=== PATIENT | male | born 1940 | race Caucasian/White ===

== ENCOUNTER 2019-04-18 10:45 | Outpatient (CLI) | payer MEDICARE, OTHER, SELFPAY ==
--- NOTE | 2019-04-18 10:52 | ECG_ITS ---
Measurements Intervals [place] Rate: 69 P: 39 OR: 164 QRS: -22 QRSD: 102 T: 11 QT: 375 QTc: 402 Interpretive Statements SINUS RHYTHM VOLTAGE CRITERIA FOR LVH BORDERLINE T WAVE ABNORMALITY- INFERIOR LEADS BASELINE ARTIFACT- I, II, III, AVL, AVF, V6 BORDERLINE ECG Electronically Signed On 04-18-2019 11:32:24 TANDEM OPERATOR by Joe Beaulieu D.O.
[2019-04-18 11:26] LABS: Blood Urea Nitrogen 29 mg/dL (9-20); Calcium 9.7 mg/dL (8.4-10.2); Carbon Dioxide 28 mmol/L (22-30); Chloride 99 mmol/L (98-107); Estimated Glomerular Filt Rate 45; Glucose 97 mg/dL (75-110); Potassium 3.7 mmol/L (3.4-5.0); Sodium 137 mmol/L (137-145)
== END 2019-04-18 10:46 | disposition home or self-care (01) ==
LOC: ANHSURGERY 10:52
PROVIDERS: Anesthesiology; PCP Family Medicine; Visit Provider Surgery
DX: I10 Essential (primary) hypertension (principal); R94.31 Abnormal electrocardiogram [ECG] [EKG]
CPT/HCPCS: 36415; 80048; 93005

== ENCOUNTER 2019-04-27 01:27 | Day surgery (SDC) | payer MEDICARE, OTHER, SELFPAY ==
[2019-04-17 10:15] VITALS: BMI 24.4
--- NOTE | 2019-04-26 20:50 | PM.SD ---
Same Day Admit/Disch: HPI History of Present Illness Chief complaint: Right Inguinal Hernia Narrative: Matteo Holman is a 78 year old male with a painful right inguinal hernia. He is taken to surgery now for repair. [facility] Past Medical History Medical History BPH (benign prostatic hyperplasia) Hypertension Hypothyroidism Surgical History Surgical History History of appendectomy History of cholecystectomy History of tonsillectomy Hx of arthroscopy of left knee Hx of arthroscopy of right knee S/P skin cancer resection Family History Family History Unknown No problems noted. Social History Social History Smoking status: Former smoker Second hand tobacco smoke exposure: No Smoking end date: 03/08/04 Alcohol intake: never Same Day Admit/Disch: Med Pre-admit Medications Home Medications Medication Instructions Recorded Confirmed Type triamterene 37.5 1 tablet PO QAM #90 tablet 02/22/19 04/27/19 Rx mg-hydrochlorothiazide 25 mg tablet levothyroxine 112 mcg tablet 112 mcg PO DAILY 03/17/19 04/27/19 History hydrocodone-acetaminophen 1 - 2 tablet PO Q6H PRN #7 tablet 04/27/19 Rx ibuprofen 600 mg PO Q6H PRN #14 tablet 04/27/19 Rx Exam Const: General: comfortable, no acute distress, alert and awake HENMT: Head: normocephalic and atraumatic Mouth: Yes Normal oral and palatal mucosa present Eyes: Conjunctivae: conjunctivae normal Pupils: Equal, round and reactive pupils present EOM: EOMs intact bilaterally Neck: Neck: normal visual inspection, no lymphadenopathy and nontender Resp: Effort & Inspection: normal respiratory effort Auscultation: clear to auscultation bilaterally Cardio: Rate: regular rate Rhythm: regular rhythm Heart sounds: no gallops, no murmurs and no rubs GI: Inspection: non-distended GI Palp: Yes Soft to palpation, No Tenderness to palpation present (GI), No Hepatomegaly present and No Splenomegaly present : Male General Exam: Yes hernia (right inguinal bulge, pulses with cough) Penis: Yes normal penis Scrotum: scrotum normal Testes: Testes normal Skin: Lesions: no lesions Rashes: no rashes Neuro: General: no focal motor deficits and CN's II-XI intact bilaterally Cranial nerves: Yes Equal, round and reactive pupils present, Yes Bilaterally intact EOM present, Yes facial symmetry and Yes Midline tongue present Speech: normal speech Motor exam (neuro): 5/5 motor strength present throughout and Motor abnormalities not present Extrem: General: no clubbing, cyanosis or edema and edema Psych: Affect: normal affect Thought process: Normal thought process present Insight: Good insight present (Psych) DS: Summary Time Spent with Patient Time attestation: Total time spent providing and/or coordinating discharge services: DS: Diagnosis Admitting Diagnosis Admitting Diagnosis: Essential (primary) hypertension Discharge Diagnosis (1) Reducible right inguinal hernia: Code(s): K40.90 - Unilateral inguinal hernia, without obstruction or gangrene, not specified as recurrent Status: Acute Assessment and Plan: Patient has a right inguinal hernia noted on exam. I have recommended repair right inguinal hernia repair as outpatient under loc/mac. I have recommend repair inguinal hernia under loc/mac anesthesia as outpatient. The procedure was discussed in detail including the use of mesh, general description, and usual course of recovery. Risk of recurrence, infection, postop bleeding, prolonged postop pain, possible need to return to surgery and possible placement of catheter due to post op urinary retention were discussed a well. All questions answered. Patient agrees to go ahead with surgery. Discharge Plan Discharge Patient Disposition: [facility]
[2019-04-27 09:32] VITALS: BP 159/83; PULSE 75; RESP 15; TEMP 36.7; O2SAT 96
[2019-04-27] MEDS: LACTATED RINGERS 1,000 ML 30 ML IV CONT (10:05)
--- NOTE | 2019-04-27 10:46 | WPDHPUPDATE1 ---
History and Physical Update Update Date/Time: 04/27/19 10:46 History and Physical has been reviewed, including an updated exam of the patient. There are NO changes in the patient's condition. Risks, benefits, and alternatives have been discussed and questions answered. Patient agrees to proceed with procedure.
--- NOTE | 2019-04-27 11:06 | WPDANESEPPF ---
Anes - Initial Pre Proc Eval Procedure: Operation Date: 04/27/19 12:00 Proposed Procedures p Right Inguinal Hernia Repair - Pepito Alvarez MD Date/Time: 04/27/19 11:06 Surgeon: Pepito Alvarez MD Pre Op Diagnosis: Right Inguinal Hernia Patient Data Age: 78 Gender: M Height: 6 ft Weight: 81.65 kg Allergies Allergy/AdvReac Type Severity Reaction Status Date / Time No Known Allergies Allergy Unknown Verified 04/17/19 10:01 Home Medications Medication Instructions Recorded Confirmed Type triamterene 37.5 1 tablet PO QAM #90 tablet 02/22/19 04/17/19 Rx mg-hydrochlorothiazide 25 mg tablet levothyroxine 112 mcg tablet 112 mcg PO DAILY 03/17/19 04/17/19 History Patient hx anesthesia problems: none Family hx anesthesia problems: none PMFSH Past Medical History Medical History BPH (benign prostatic hyperplasia) Hypertension Hypothyroidism Surgical History Surgical History History of appendectomy History of cholecystectomy History of tonsillectomy Hx of arthroscopy of left knee Hx of arthroscopy of right knee S/P skin cancer resection Family History Family History Unknown No problems noted. Social History Social History Smoking status: Former smoker Second hand tobacco smoke exposure: No Smoking end date: 03/08/04 Alcohol intake: never Anes - Eval Final PreProcedure Day of Procedure 04/27/19 11:06 Patient weight: normal Heart: regular rate and rhythm Lungs: clear to auscultation Airway: Mallampati scale class II Neurological: alert and oriented Last oral intake: >/= 8 hours ASA classification: III Emergent: no Anesthetic plan: proceed Anesthesia type and monitoring: general GIVS and standard monitoring Informed Consent: The patient's anesthetic plan and its attendant risks and benefits were discussed with the patient/family/POA. Questions were solicited and answers provided to the satisfaction of the patient/family/POA.
[2019-04-27] MEDS: ceFAZolin 2 GM/D5W 50 ML 2 GM/50 ML BAG IVPB (12:12)
[2019-04-27] MEDS: IBUPROFEN IV 800 MG/200 ML 800 MG/200 ML BAG 400 MG IVPB (12:41)
--- NOTE | 2019-04-27 12:59 | SUR.OPER ---
PARIETEX PLUG AND PATCH SYSTEM 6CM LOT#[id number] EXP. 2023-11-06
--- NOTE | 2019-04-27 13:30 | PM.PROC ---
Procedure Note - Detailed Date of procedure: 04/27/19 Pre-op diagnosis: Right Inguinal Hernia Right inguinal hernia Post-op diagnosis: same (Indirect hernia) Procedure performed: Repair of right inguinal hernia with 6 cm Parietex hernia mesh system Description of procedure: The patient was taken to surgery and IV sedation was administered. The right groin and genitalia were prepped and draped. Proposed incision was marked on the skin. Local was infiltrated into the skin and the deeper subcutaneous tissues. Incision was made and deepened through the subcutaneous. Crossing veins were cauterized and divided. Dissection was carried through Willie's fascia down to the external oblique aponeurosis. The aponeurosis was exposed as was the external ring. Additional local anesthesia was infiltrated deep to the aponeurosis in the area of the spermatic cord and inguinal canal contents. The aponeurosis was opened laterally and extended medially through the external ring. The leaves of the aponeurosis were dissected free from the spermatic cord. The ileoinguinal nerve was carefully preserved throughout the dissection and was left attached to the spermatic cord. The cord was then mobilized medially on a [place] drain. The cord was dissected back to the internal ring. Dissection was then carried out in the anteromedial spermatic cord. The hernia sac was found and dissected free. The sac was opened so that I could place a finger within the hernia sac and facilitate this dissection. This opening was then closed with a running 3 0 Vicryl suture. The sac was then dissected back to a high dissection. It was dunked into the retroperitoneum. A 6 centimeter Parietex knik was chosen. It was folded to form a plug. It was placed in the defect. The edges were sutured to the transversalis fascia with interrupted 3 0 Vicryl suture. The hernia defect was then partially closed with some additional 3 0 Vicryl suture. Patch was then cut to the appropriate size and placed over the inguinal canal floor. The lateral leaves were passed beyond the cord. The cord and ileoinguinal nerve were then laid over the patch. The external oblique aponeurosis was closed with interrupted 3 0 Vicryl suture. Willie's fascia was closed with interrupted 3 0 Vicryl suture. The subcutaneous was closed with interrupted 4 0 Vicryl suture. Four 0 Vicryl subcuticular skin sutures were placed. The skin was closed finally with a running 4 0 Monocryl skin suture. The wound was dressed with Exofin surgical adhesive. The patient was awakened and taken to recovery in good condition. Sponge and needle counts were correct x2. Anesthesia: MAC and local (0.5% Marcaine with Exparel) Surgeon: Pepito Alvarez MD Retort Pre Cooker: Caitlin ARZATE Estimated blood loss (mL): 5 Drains: No Packing: No Pathology: none sent Complications: None Condition: stable Disposition: same day Findings: Indirect inguinal hernia. No sliding hernia was noted.
[2019-04-27 13:39] VITALS: BP 100/55; PULSE 50; RESP 16; O2SAT 97
[2019-04-27 14:05] VITALS: BP 162/79; PULSE 58
[2019-04-27 14:35] VITALS: BP 164/72; PULSE 55
== END 2019-04-27 14:55 | disposition home or self-care (01) ==
PROVIDERS: PCP Family Medicine; Visit Provider Surgery
PROC: (CPT 49505; principal; 2019-04-27 12:00)
DX: K40.90 Unilateral inguinal hernia, without obstruction or gangrene, not specified as recurrent (principal); I10 Essential (primary) hypertension; E03.9 Hypothyroidism, unspecified; N40.0 Benign prostatic hyperplasia without lower urinary tract symptoms; Z87.891 Personal history of nicotine dependence
CPT/HCPCS: 49505; A9270; C1781; C9290; J0690; J1741; J2250; J2405; J2704; J3010; J7120

== ENCOUNTER 2019-05-07 10:37 | Emergency (ER) | payer MEDICARE, OTHER, SELFPAY ==
--- NOTE | ~2019-05-07 | US_ITS ---
EXAMINATION: US scrotum doppler DATE: 05/07/2019 13:41 INDICATION: Right testicular pain. TECHNIQUE: Grayscale and Doppler ultrasound images of the testes were obtained. COMPARISON: None. FINDINGS: The right testis measures 3.3 x 2.8 x 1.9 cm. The left testis measures 3.3 x 3.1 x 1.7 cm. There is normal vascular flow to both testes. The right epididymis is normal in size and demonstrates hyperemia. The left epididymis is normal with normal vascular flow. There is no varicocele or hydroc luis manuel. IMPRESSION: 1. Hyperemia of right epididymis, consistent with epididymitis. Reviewed, dictated and finalized at location A. ETING MANAGER
[2019-05-07 11:25] VITALS: BP 125/77; PULSE 86; O2SAT 97
--- NOTE | 2019-05-07 12:30 | ED.GENADULT ---
HPI - General Adult General Chief complaint: Recheck/Abnormal Lab/Rx Stated complaint: post op check Time Seen by Provider: 05/07/19 11:54 Source: patient Mode of arrival: ambulatory Limitations: no limitations History of Present Illness HPI narrative: A 78 y/o male pt presents to the ED, with c/o redness, bloody drainage, and concern of infection to his incision site from an inguinal hernia repair he had on 04/27/2019. He notes that he has a follow up on (05/11/2019) with Dr. Alvarez, but he did not feel like he could wait that long. Pt states that following the procedure he noticed his underwear was full of blood, but when he applied a band aid, the bleeding subsided. He denies any increase in swelling to his incision site. Pt notes a sharp, burning sensation and pain to his rt testicle when he moves his rt leg a certain way. He states that he first noticed swelling in his rt testical following his procedure, but notes that the swelling has gone down. Pt denies fever, chills, sweats, penile discharge or dysuria. He notes having a hx of an enlarged prostate. complaint: post op follow up for iguinal hernia repair Onset (ago): day(s) (10) Location: pelvis (groin) Quality: burning (rt testical) and sharp (rt testical) Pain Consistency: other ( when moving rt leg a certain way ) Relieving factors: other (band aid to incision site to stop bloody drainage) Associated symptoms: other (redness, bloody drainage to incision site, rt testicular pain and swelling) Related Data Home Medications Medication Instructions Recorded Confirmed levothyroxine 112 mcg tablet 112 mcg PO DAILY 03/17/19 04/27/19 Allergies Allergy/AdvReac Type Severity Reaction Status Date / Time No Known Allergies Allergy Unknown Verified 04/27/19 11:22 Review of Systems Review of Systems: All systems reviewed & are unremarkable except as noted in HPI and below Constitutional: Constitutional: Denies chills, Denies excessive sweating and Denies fever(s) Genitourinary: Genitourinary: Denies dysuria, Denies penile discharge, Reports scrotal swelling (subsided) and Reports testicular pain (sharp, burning pain in rt testicle, with rt leg movement) Integumentary/Breasts: Skin/Breast: Denies swelling (to incision site), Reports erythema (to incision site) and Reports other (bleeding to incision site) [facility] Past Medical History Medical History BPH (benign prostatic hyperplasia) Hypertension Hypothyroidism Surgical History Surgical History History of appendectomy History of cholecystectomy History of tonsillectomy Hx of arthroscopy of left knee Hx of arthroscopy of right knee S/P skin cancer resection Social History Social History Smoking status: Former smoker Second hand tobacco smoke exposure: No Smoking end date: 03/08/04 Alcohol intake: never Gender identity (if verbalized by the patient): Male Exam Narrative: Exam Narrative: GENERAL: Well-appearing, well-nourished, and in no acute distress. HEAD: Normocephalic, atraumatic. ENT: Mucous membranes moist. ABDOMEN: Soft, nontender, nondistended. Well-healing right inguinal hernia incision with underlying edema and induration. No ballotable/fluctuant mass beneath the incision. No active drainage could be expressed. :. Normal-appearing external genitalia. Right testicular discomfort most prominent over the epididymis. No tenderness to left testicle or epididymis. No urethral discharge. EXTREMITIES: Normal range of motion. No edema. NEURO: Alert and oriented x3. PSYCH: Normal mood and affect. Course Course Emergency Course: Informed of results. D/c. Vital Signs Vital signs: Vital Signs Pulse Rate 86 05/07/19 11:25 Blood Pressure 125/77 05/07/19 11:25 Pulse Oximetry 97 05/07/19 11:25 Pulse Rate 86
[2019-05-07 12:58] LABS: Add Urine Microscopic? YES; Appearance Urine Clear (Clear); Bilirubin Urine Negative (Negative); Blood Urine 2+ (Negative); Color Urine Yellow (Yellow); Glucose Urine UA Negative (Negative); Ketones Urine Negative (Negative); Leukocyte Esterase Ur Negative LEU/UL (Negative); Mucus Urine Rare /lpf; Nitrate Urine Negative (Negative); Protein Urine Negative (Negative); RBC Urine 21-50 /hpf (0-2); Specific Grav Ur 1.016 (1.001-1.035); Squamous Epithelial Cell Urine Rare /hpf (Few); Urobilinogen Urine Negative mg/dL (<2.0); WBC Urine 0-3 /hpf
== END 2019-05-07 14:59 | disposition home or self-care (01) ==
PROVIDERS: Emergency Provider Emergency Medicine; PCP Family Medicine
DX: N45.1 Epididymitis (principal); N40.0 Benign prostatic hyperplasia without lower urinary tract symptoms; I10 Essential (primary) hypertension; E03.9 Hypothyroidism, unspecified; Z85.828 Personal history of other malignant neoplasm of skin; Z87.891 Personal history of nicotine dependence
CPT/HCPCS: 76870; 81001; 93976; 99283; 99284

== ENCOUNTER 2019-08-01 10:00 | Outpatient (CLI) | payer MEDICARE, OTHER, SELFPAY ==
--- NOTE | ~2019-08-01 | US_ITS ---
EXAMINATION: US abdomen complete DATE: 08/01/2019 10:43 INDICATION: Left abdominal pain. Unilateral inguinal hernia, without obstruction or gangrene. TECHNIQUE: Multiple grayscale and Doppler ultrasound images of the abdomen were obtained. COMPARISON: CT abdomen and pelvis 07/03/2015 FINDINGS: Abdominal aorta is normal in caliber and demonstrates atherosclerosis. Inferior vena cava i s normal. The visualized portions of the body of the pancreas are normal. The liver is normal without focal lesion. There is normal flow in main portal vein. The gallbladder is absent. The common duct i s normal and measures 4 mm. The spleen is normal in size. The kidneys are normal in size. There are c ysts in the kidneys measuring up to 4.5 cm on the left. IMPRESSION: 1. No etiology for the patient's symptoms. Reviewed, dictated and finalized at location A.
== END 2019-08-01 10:01 | disposition home or self-care (01) ==
PROVIDERS: PCP Family Medicine; Visit Provider Physician Assistant
DX: K40.90 Unilateral inguinal hernia, without obstruction or gangrene, not specified as recurrent (principal)
CPT/HCPCS: 76700

== ENCOUNTER 2019-10-01 08:51 | Emergency (ER) | payer MEDICARE, OTHER, SELFPAY ==
--- NOTE | ~2019-10-01 | US_ITS ---
US pelvic limited DATE: 10/01/2019 11:50 INDICATION: Hematuria TECHNIQUE: Real-time imaging of the urinary bladder COMPARISON: None FINDINGS: There is generalized bladder wall thickening, measuring approximately 5 mm thick, likely du e to bladder outlet obstruction as a result of prominent prostate enlargement. No intraluminal fillin g defect of the urinary bladder is evident. Bilateral ureteral jets are demonstrated.. IMPRESSION: Prominent prostate enlargement with probable bladder outlet obstruction and associated ge neralized urinary bladder wall thickening Reviewed, dictated and finalized at Location A. Reviewed, dictated and finalized at location A. IMPRESSION: Prominent prostate enlargement with probable bladder outlet obstruc tion and associated generalized urinary bladder wall thickening
[2019-10-01 09:15] VITALS: BP 130/98; PULSE 90; RESP 20; TEMP 36.4; O2SAT 96
--- NOTE | 2019-10-01 09:22 | PC.NURSE ---
Pts daughter Tiffany was notified of pt being here per pts request. [phone]
--- NOTE | 2019-10-01 10:06 | ED.MALEGU ---
HPI - Male Genitourinary General Chief complaint: Urogenital-Male Stated complaint: hematuria Time Seen by Provider: 10/01/19 09:30 Source: patient Mode of arrival: ambulatory Limitations: no limitations History of Present Illness HPI Narrative: This patient is a 79 year old male with history of BPH who presents for evaluation of hematuria. Last night he started to notice dark color urine. He states as his urine settles in the toilet you can tell there is blood in it. He denies gross hematuria with clots or bright red. He states he chronic has frequent urination. He denies abdominal pain, bladder pressure, nausea, vomiting, back pain or fever. Related Data Allergies Allergy/AdvReac Type Severity Reaction Status Date / Time levofloxacin [From Levaquin] Allergy Mild Itching Verified 10/01/19 09:21 Review of Systems Review of Systems: All systems reviewed & are unremarkable except as noted in HPI and below Gastrointestinal: Gastrointestinal: Denies abdominal pain and Denies vomiting Genitourinary: Genitourinary: Denies dysuria, Denies flank pain and Denies urinary urgency Musculoskeletal: Musculoskeletal: Denies back pain [facility] Social History Social History (Updated 06/19/19 @ 13:27 by Mercedes Cardona) Smoking packs per day: 1 Smoking cigarettes per day: 20.0 Years smoked: 20 Smoking pack-years: 20.00 Smoking status: Former smoker Tobacco type: cigarettes Second hand tobacco smoke exposure: No Smoking end date: 03/08/04 Alcohol intake: never Substance use: never Substance use type: does not use Gender identity (if verbalized by the patient): Male Exam Narrative: Exam Narrative: GENERAL: Well-appearing, well-nourished, and in no acute distress. HEAD: Normocephalic, atraumatic EYES: PERRLA and EOMI, conjunctiva clear without discharge THROAT:Mucous membranes moist, Oropharynx normal without erythema, exudate, peritonsillar swelling or fluctuance NECK: Supple, without lymphadenopathy or mass RESPIRATORY: No respiratory distress, Airway patent, Respirations non-labored, Clear to auscultation without rales, rhonchi or wheeze HEART: Regular rate and rhythm. No murmur heard. Normal peripheral pulses. ABDOMEN: Soft, nontender, nondistended, normal active bowel sounds. No masses. No rebound or guarding, No organomegaly. EXTREMITIES: No edema, normal strength with full range of motion. SKIN: Warm, dry, normal color without rash NEURO: Alert and oriented x3. CN 2-12 grossly intact. No focal deficits. PSYCH: Normal mood and affect. : Penis: Yes normal penis and Yes circumcised Meatus: meatus normal Course Reevaluation(s) Reevaluation #1: Patient refuse CT scan for hematuria. Bladder ultrasound shows bladder wall thickening likely due to his BPH. he states the last time this happened Dr. Edge prescribed finasteride for 7 days. Date: 10/01/19 Time: 12:52 Vital Signs Vital signs: Vital Signs Temperature 97.5 F L 10/01/19 09:15 Pulse Rate 90 10/01/19 09:15 Respiratory Rate 20 10/01/19 09:15 Blood Pressure 130/98 H 10/01/19 09:15 Pulse Oximetry 96 10/01/19 09:15 Temperature 98.2 F 10/01/19 13:01 Pulse Rate 76 10/01/19 13:01 Respiratory Rate 16 10/01/19 13:01 Blood Pressure 144/83 H 10/01/19 13:01 Pulse Oximetry 96 10/01/19 13:01 MDM - Male Genitourinary Lab Data Attestation: I reviewed the patient's lab results. Result diagrams: 10/01/19 10:28 10/01/19 10:28 Labs: Lab Results 10/01/19 10/01/19 10/01/19 Range/Units 10:28 10:28 10:28 WBC 8.4 (4.5-10.0) K/mm3 RBC 4.62 (4.6-6.20) M/mm3 Hgb 15.9 (14.0-18.0) g/dL Hct 45.8 (42.0-52.0) % MCV 99.1 (80-100) fl MCH 34.4 H (26-34) pg MCHC 34.7 (32-36) g/dl RDW 12.5 (11.5-14.5) % Plt Count 271 (150-375) k/mm3 MPV 9.8 (7.4-10.4) fl Immature Gran % (Auto) 0.4 (0-0.5) % Neut % (Auto) 70.1 (45.5-73.1) %
[2019-10-01 10:34] LABS: Basophils Absolute Auto 0.1 K/mm3 (0.0-0.1); Eosinophils Absolute Auto 0.3 K/mm3 (0-0.3); Eosinophils Percent Auto 3.3 % (0-4.4); Hematocrit 45.8 % (42.0-52.0); Hemoglobin 15.9 g/dL (14.0-18.0); Immature Granulocyte Absolute 0.03 K/mm3 (0.00-0.031); Immature Granulocyte Percent A 0.4 % (0-0.5); Lymphocytes Absolute Auto 1.51 K/mm3 (0.9-3.2); Lymphocytes Percent Auto 18.1 % (18.3-44.2); Mean Corpuscular HGB Conc 34.7 g/dl (32-36); Mean Corpuscular Hemoglobin 34.4 pg (26-34); Mean Corpuscular Volume 99.1 fl (80-100); Mean Platelet Volume 9.8 fl (7.4-10.4); Monocytes Absolute Auto 0.6 K/mm3 (0.1-0.6); Monocytes Percent Auto 7.1 % (2.6-8.5); Neutrophils Absolute Auto 5.9 K/mm3 (1.3-6.7); Neutrophils Percent Auto 70.1 % (45.5-73.1); Platelet Count Result 271 k/mm3 (150-375); Red Blood Count 4.62 M/mm3 (4.6-6.20); Red Cell Distribution Width 12.5 % (11.5-14.5); White Blood Count 8.4 K/mm3 (4.5-10.0)
[2019-10-01 10:41] LABS: Add Urine Microscopic? YES; Appearance Urine Cloudy (Clear); Bilirubin Urine Negative (Negative); Blood Urine 3+ (Negative); Color Urine Red (Yellow); Glucose Urine UA Negative (Negative); Ketones Urine Negative (Negative); Leukocyte Esterase Ur Negative LEU/UL (Negative); Nitrate Urine Negative (Negative); Protein Urine 1+ mg/dL (Negative); RBC Urine >75 /hpf (0-2); Specific Grav Ur 1.014 (1.001-1.035); Urobilinogen Urine Negative mg/dL (<2.0); WBC Urine 0-3 /hpf
[2019-10-01 10:54] LABS: Anion Gap 16.7 mmol/L (7-16); Blood Urea Nitrogen 34 mg/dL (9-20); Calcium 9.6 mg/dL (8.4-10.2); Carbon Dioxide 21 mmol/L (22-30); Chloride 102 mmol/L (98-107); Estimated CRCL calculation 38 ml/min; Estimated Glomerular Filt Rate 42; Glucose 105 mg/dL (75-110); Potassium 3.7 mmol/L (3.4-5.0); Sodium 136 mmol/L (137-145)
--- NOTE | 2019-10-01 11:13 | PC.NURSE ---
Jacqueline cartagena called and wanted to see if pt could have a full bladder before ultrasound. This RN asked Dr. Lutz if pt could have a glass of water and she stated that was ok. Gave pt cup of water and told him to drink.
[2019-10-01 13:01] VITALS: BP 144/83; PULSE 76; RESP 16; TEMP 36.8; O2SAT 96
== END 2019-10-01 13:02 | disposition home or self-care (01) ==
PROVIDERS: Emergency Provider General Practice; PCP Family Medicine
DX: N40.0 Benign prostatic hyperplasia without lower urinary tract symptoms (principal); R31.9 Hematuria, unspecified; Z87.891 Personal history of nicotine dependence
CPT/HCPCS: 36415; 76857; 80048; 81001; 85025; 99284

== ENCOUNTER 2020-01-03 10:47 | Outpatient (CLI) | payer MEDICARE, OTHER, SELFPAY ==
[2020-01-03 11:17] LABS: Hematocrit 45.3 % (42.0-52.0); Hemoglobin 15.3 g/dL (14.0-18.0); Mean Corpuscular HGB Conc 33.8 g/dl (32-36); Mean Corpuscular Hemoglobin 34.5 pg (26-34); Mean Corpuscular Volume 102.3 fl (80-100); Mean Platelet Volume 9.3 fl (7.4-10.4); Platelet Count Result 240 k/mm3 (150-375); Red Blood Count 4.43 M/mm3 (4.6-6.20); Red Cell Distribution Width 13.1 % (11.5-14.5); White Blood Count 8.3 K/mm3 (4.5-10.0)
[2020-01-03 11:21] LABS: Alanine Aminotransferase 12 U/L (4-50); Albumin Level 3.9 g/dL (3.5-5.1); Alkaline Phosphatase 106 U/L (38-126); Anion Gap 4 mmol/L (8-16); Aspartate Amino Transferase 24 U/L (17-59); Bilirubin,Total 0.7 mg/dL (0.2-1.3); Blood Urea Nitrogen 33 mg/dL (9-20); Carbon Dioxide 35 mmol/L (22-30); Chloride 101 mmol/L (98-107); Estimated Glomerular Filt Rate 45; Glucose 100 mg/dL (75-110); Potassium 3.9 mmol/L (3.4-5.0); Sodium 140 mmol/L (137-145)
== END 2020-01-03 10:48 | disposition home or self-care (01) ==
PROVIDERS: PCP Family Medicine; Visit Provider Family Medicine
DX: I10 Essential (primary) hypertension (principal); E03.9 Hypothyroidism, unspecified; R53.83 Other fatigue
CPT/HCPCS: 36415; 80053; 84443; 85027

== ENCOUNTER 2020-03-05 07:16 | Emergency (ER) | payer MEDICARE, OTHER, SELFPAY ==
--- NOTE | ~2020-03-05 | XR_ITS ---
EXAMINATION: XR hand RT min 3V DATE: 03/05/2020 07:37 INDICATION: Right hand injury at the base of the thumb TECHNIQUE: Posteroanterior, oblique and lateral views of the right hand were obtained. COMPARISON: None. FINDINGS: Slight palmar subluxation at the right second and third metacarpophalangeal joints. No fracture. Poly articular osteoarthritis, severe at the triscaphe and first carpal metacarpal joints and mild to mode rate at the wrist, midcarpal and multiple metacarpophalangeal and interphalangeal joints. Diffuse ost eopenia. IMPRESSION: 1. 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 No acute osseous abnormal ity. Reviewed, dictated and finalized at location A. PATCHER IMPRESSION: 1. 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 No acute osseous abnormality.
[2020-03-05 07:23] VITALS: BP 160/88; PULSE 101; RESP 18; TEMP 36.2; O2SAT 97
--- NOTE | 2020-03-05 08:12 | ED.UPPEXIN ---
HPI - Extremity Injury (Upper) General Chief Complaint: Extremity Injury, Upper Stated Complaint: fall - hand injury Time Seen by Provider: 03/05/20 07:24 Source: patient Mode of arrival: ambulatory Limitations: no limitations History of Present Illness HPI narrative: 79-year-old with a history of hypertension, hypothyroidism, BPH here with complaints of right hand pain. Patient vaguely remembers that he might have hit his hand against something yesterday and since this morning been having pain in the right thumb area , states if he moves in certain angle he gets severe sharp shooting pain which lasts a few seconds. He denies any other complaints or injuries at this time. complaint: injury to: right and hand Onset (ago): day(s) (1) Other Extremity Injury: Right: hand Other injuries: none Handedness: right Place: home Severity: mild Relieving factors: none Exacerbating factors: movement of extremity Context: direct blow Associated symptoms: denies other symptoms Related Data Allergies Allergy/AdvReac Type Severity Reaction Status Date / Time levofloxacin [From Levaquin] Allergy Mild Itching Verified 03/05/20 07:29 Review of Systems Review of Systems: All systems reviewed & are unremarkable except as noted in HPI and below Constitutional: Constitutional: Reports no additional constitutional complaints ENT: Reports system reviewed and no additional complaints, except as documented Cardiovascular: Cardiovascular: Reports no additional cardiovascular complaints Respiratory: Respiratory: Reports no additional respiratory complaints Gastrointestinal: Gastrointestinal: Reports no additional gastrointestinal complaints Musculoskeletal: Musculoskeletal: Reports as per HPI [facility] Past Medical History Medical History BPH (benign prostatic hyperplasia) Hy kid NOS w cr kid I-IV Hypertension Hypothyroidism Surgical History Surgical History History of appendectomy History of cholecystectomy History of right inguinal hernia repair with 6cm Parietex hernia mesh system 04/27/2019 History of tonsillectomy Hx of arthroscopy of left knee Hx of arthroscopy of right knee S/P skin cancer resection Family History Family History Unknown No problems noted. Social History Social History Smoking packs per day: 1 Smoking cigarettes per day: 20.0 Years smoked: 20 Smoking pack-years: 20.00 Smoking status: Former smoker Tobacco type: cigarettes Second hand tobacco smoke exposure: No Smoking end date: 03/08/04 Alcohol intake: never Substance use: never Substance use type: does not use Gender identity (if verbalized by the patient): Male Exam Narrative: Exam Narrative: GENERAL: Well-appearing, well-nourished, and in no acute distress. HEAD: Normocephalic, atraumatic. EYES: PERRLA and EOMI NECK: Supple. CHEST: Clear to auscultation. No respiratory distress. HEART: Regular rate and rhythm. No murmur heard. Normal peripheral pulses. EXTREMITIES: Normal range of motion. No edema. Mild soft tissue swelling noted at the first MP joint SKIN: Warm, dry, no rash. NEURO: No focal deficits. Alert and oriented x3. PSYCH: Normal mood and affect. Course Course Emergency Course: Inform patient about his x-ray findings advised Barrera wrap take Tylenol for pain as needed. Vital Signs Vital signs: Vital Signs Temperature 36.2 C L 03/05/20 07:23 Pulse Rate 101 H 03/05/20 07:23 Respiratory Rate 18 03/05/20 07:23 Blood Pressure 160/88 H 03/05/20 07:23 Pulse Oximetry 97 03/05/20 07:23 Temperature 36.2 C L 03/05/20 07:23 Pulse Rate 101 H 03/05/20 07:23 Respiratory Rate 18 03/05/20 07:23 Blood Pressure 160/88 H 03/05/20 07:23 Pulse Oximetry 97 03/05/20 07:23 [facility]
== END 2020-03-05 08:27 | disposition home or self-care (01) ==
PROVIDERS: Emergency Provider Family Medicine; PCP Family Medicine
DX: S63.91XA Sprain of unspecified part of right wrist and hand, initial encounter (principal); S66.911A Strain of unspecified muscle, fascia and tendon at wrist and hand level, right hand, initial encounter; X58.XXXA Exposure to other specified factors, initial encounter; Z87.891 Personal history of nicotine dependence; N40.0 Benign prostatic hyperplasia without lower urinary tract symptoms; I10 Essential (primary) hypertension; E03.9 Hypothyroidism, unspecified
CPT/HCPCS: 73130; 99283

== ENCOUNTER 2020-05-11 06:14 | Emergency (ER) | payer MEDICARE, OTHER, SELFPAY ==
--- NOTE | ~2020-05-11 | CT_ITS ---
EXAMINATION: CT abdomen pelvis wo con EXAM DATE: 05/11/2020 08:34 INDICATION: Right groin pain. TECHNIQUE: Spiral CT of the abdomen and pelvis was performed without contrast. Axial, coronal and s agittal images were reviewed. The dose-length product (DLP) for this examination was 449.10 mGy-cm. The exposure was tailored according to patient size (auto mA exposure control), and iterative recons truction (ASIR) was used as additional dose reduction technique. Comparison is made to prior examinat ion from 07/03/2015. FINDINGS: The liver, spleen, adrenal glands and pancreas are unremarkable. There are cholecystectomy clips. There is no nephrolithiasis or hydronephrosis. Bilateral renal cysts up to 5 cm on the left. The prostate is moderately enlarged, measuring 5.5 cm transverse dimension. The bladder is unremar kable. There is no retroperitoneal or pelvic lymphadenopathy. There is mild scattered arterioscler otic disease. Mild fusiform dilation of the midabdominal aorta up to 2.9 cm, and again fusiform dilat ion of the distal abdominal aorta to 3.0 cm. There is a saccular right common iliac artery aneurysm m easuring 2.1 cm. Small right inguinal fat-containing hernia. The appendix is not positively visualized. There is no p ericecal inflammatory change to suggest appendicitis. There is small sliding gastroesophageal hiata l hernia. There is a small duodenal diverticulum measuring about 2 cm. There is moderate amount of c olonic stool. There is moderate sigmoid colonic diverticulosis. There is no adjacent inflammatory ch janette to suggest diverticulitis. No free intraperitoneal gas. The heart is normal in size. There a re no pericardial or pleural effusions. There is moderate to severe basilar honeycombing, chronic fi brosis with interval progression compared to 2016. There are no osteoblastic or osteolytic lesions i dentified. Moderate lower thoracic disc disease. IMPRESSION: 1. Small right inguinal fat-containing hernia. 2. Moderate sigmoid diverticulosis. 3. Moderate prostatomegaly. 4. 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 Reviewed, dictated and finalized at location A. RIALS SCHEDULER
[2020-05-11 06:18] VITALS: BP 148/105; PULSE 104; RESP 20; TEMP 35.8; O2SAT 100
[2020-05-11 07:05] LABS: Basophils Absolute Auto 0.1 K/mm3 (0.0-0.1); Basophils Percent Auto 0.7 % (0.2-1.2); Eosinophils Absolute Auto 0.2 K/mm3 (0-0.3); Eosinophils Percent Auto 3.1 % (0-4.4); Hematocrit 45.7 % (42.0-52.0); Hemoglobin 15.8 g/dL (14.0-18.0); Immature Granulocyte Absolute 0.02 K/mm3 (0.00-0.031); Immature Granulocyte Percent A 0.3 % (0-0.5); Lymphocytes Absolute Auto 0.99 K/mm3 (0.9-3.2); Lymphocytes Percent Auto 13.9 % (18.3-44.2); Mean Corpuscular HGB Conc 34.6 g/dl (32-36); Mean Corpuscular Hemoglobin 34.8 pg (26-34); Mean Corpuscular Volume 100.7 fl (80-100); Mean Platelet Volume 9.3 fl (7.4-10.4); Monocytes Absolute Auto 0.5 K/mm3 (0.1-0.6); Monocytes Percent Auto 7.6 % (2.6-8.5); Neutrophils Absolute Auto 5.3 K/mm3 (1.3-6.7); Neutrophils Percent Auto 74.4 % (45.5-73.1); Platelet Count Result 201 k/mm3 (150-375); Red Blood Count 4.54 M/mm3 (4.6-6.20); Red Cell Distribution Width 12.5 % (11.5-14.5); White Blood Count 7.1 K/mm3 (4.5-10.0)
[2020-05-11 07:16] VITALS: BP 124/87; PULSE 77; RESP 20; O2SAT 97
[2020-05-11 07:17] LABS: Anion Gap 8 mmol/L (8-16); Blood Urea Nitrogen 35 mg/dL (9-20); Calcium 9.5 mg/dL (8.4-10.2); Carbon Dioxide 28 mmol/L (22-30); Chloride 101 mmol/L (98-107); Estimated CRCL calculation 37 ml/min; Estimated Glomerular Filt Rate 42; Glucose 92 mg/dL (75-110); Potassium 3.4 mmol/L (3.4-5.0); Sodium 137 mmol/L (137-145)
[2020-05-11 07:31] LABS: Add Urine Microscopic? YES; Appearance Urine Clear (Clear); Bilirubin Urine Negative (Negative); Blood Urine 2+ (Negative); Color Urine Yellow (Yellow); Glucose Urine UA Negative (Negative); Ketones Urine Negative (Negative); Leukocyte Esterase Ur Negative LEU/UL (Negative); Mucus Urine Rare /lpf; Nitrate Urine Negative (Negative); Protein Urine Negative (Negative); Specific Grav Ur 1.016 (1.001-1.035); Squamous Epithelial Cell Urine Rare /hpf (Few); Urobilinogen Urine Negative mg/dL (<2.0); WBC Urine 0-3 /hpf
[2020-05-11 08:05] VITALS: BP 121/78; PULSE 70; RESP 20; O2SAT 95
[2020-05-11] MEDS: SODIUM CHLORIDE 0.9% IV 500 ML 999 ML IV CONT (08:06)
--- NOTE | 2020-05-11 08:06 | ED.GENADULT ---
HPI - General Adult General Chief complaint: Unspecified Stated complaint: right groin pain Time Seen by Provider: 05/11/20 06:58 Source: patient Mode of arrival: ambulatory Limitations: no limitations History of Present Illness HPI narrative: THis is an 79 year old male who presents for evaluation of right groin pain. This pain has been occurring intermittently for 3 months. He describes his pain has sharp but nonradiating. This pain last 30 seconds to 1 minute and it subsides. His pain has worsened over past couple of days and it has been occurring more frequent. He has been taking tylenol for pain. He thinks it may be worse with certain movements of his leg. He denies associated nausea, vomiting, fever, leg swelling, weakness, numbness or tingling. He denies having pain currently. MD complaint: right groin pain Onset (ago): month(s) (3) Related Data Allergies Allergy/AdvReac Type Severity Reaction Status Date / Time levofloxacin [From Levaquin] Allergy Mild Itching Verified 05/11/20 06:21 Review of Systems Review of Systems: Narrative: CONSTITUTIONAL: Denies fever, chills, or sweats. EYES: Denies visual changes, redness, or discharge. ENT: Denies rhinorrhea, congestion, sore throat, or otalgia. CARDIOVASCULAR: Denies chest pain, palpitations, or edema. RESPIRATORY: Denies cough or dyspnea. GASTROINTESTINAL: Denies abdominal pain, nausea, vomiting, or diarrhea. GENITOURINARY: Denies dysuria or hematuria. SKIN: Denies rash or itching. MUSCULOSKELETAL: Denies back pain, right groin pain NEUROLOGIC: Denies headache, numbness, or weakness. PSYCHIATRIC: Denies anxiety or depression. All systems reviewed & are unremarkable except as noted in HPI and below PMFSH Past Medical History Medical History BPH (benign prostatic hyperplasia) Hy kid NOS w cr kid I-IV Hypertension Hypothyroidism Surgical History Surgical History History of appendectomy History of cholecystectomy History of right inguinal hernia repair with 6cm Parietex hernia mesh system 04/27/2019 History of tonsillectomy Hx of arthroscopy of left knee Hx of arthroscopy of right knee S/P skin cancer resection Family History Family History Unknown No problems noted. Social History Social History Smoking packs per day: 1 Smoking cigarettes per day: 20.0 Years smoked: 20 Smoking pack-years: 20.00 Smoking status: Former smoker Tobacco type: cigarettes Second hand tobacco smoke exposure: No Smoking end date: 03/08/04 Alcohol intake: never Substance use: never Substance use type: does not use Gender identity (if verbalized by the patient): Male Exam Narrative: Exam Narrative: GENERAL: Well-appearing, well-nourished, and in no acute distress. HEAD: Normocephalic, atraumatic EYES: PERRLA and EOMI, conjunctiva clear without discharge THROAT:Mucous membranes moist, NECK: Supple, without lymphadenopathy or mass RESPIRATORY: No respiratory distress, Airway patent, Respirations non-labored, Clear to auscultation without rales, rhonchi or wheeze HEART: Regular rate and rhythm. No murmur heard. Normal peripheral pulses. ABDOMEN: Soft, nontender, nondistended, normal active bowel sounds. No masses. No rebound or guarding, No organomegaly. EXTREMITIES: No edema, normal strength with full range of motion. SKIN: Warm, dry, normal color without rash, strong right femoral pulse, palpable DP, PT pulse, no bruits NEURO: Alert and oriented x3. CN 2-12 grossly intact. No focal deficits. PSYCH: Normal mood and affect. : Scrotum: scrotum normal Testes: Testes normal Back/Spine/Pelvis: Back: no CVA tenderness Skin: General skin exam: normal color and no rashes or lesions noted Course Reevaluation(s) Reevaluation #1
[2020-05-11 09:26] VITALS: BP 126/82; PULSE 68; RESP 20; O2SAT 98
== END 2020-05-11 09:30 | disposition home or self-care (01) ==
PROVIDERS: Emergency Medicine; Emergency Provider General Practice; PCP Family Medicine
DX: N40.0 Benign prostatic hyperplasia without lower urinary tract symptoms (principal); K40.90 Unilateral inguinal hernia, without obstruction or gangrene, not specified as recurrent; I12.9 Hypertensive chronic kidney disease with stage 1 through stage 4 chronic kidney disease, or unspecified chronic kidney disease; N18.9 Chronic kidney disease, unspecified; E03.9 Hypothyroidism, unspecified; Z87.891 Personal history of nicotine dependence; K57.90 Diverticulosis of intestine, part unspecified, without perforation or abscess without bleeding; J84.10 Pulmonary fibrosis, unspecified
CPT/HCPCS: 36415; 74176; 80048; 81001; 85025; 96360; 99284; J7040

== ENCOUNTER → 2020-07-06 02:03 | Outpatient (CLI) | payer MEDICARE, OTHER, SELFPAY ==
[2020-07-06 19:16] LABS: SARS-CoV-2 RNA PCR Negative
== END ==
PROVIDERS: Physician Assistant; PCP Family Medicine; Visit Provider Surgery
DX: Z01.812 Encounter for preprocedural laboratory examination (principal); Z20.822 Contact with and (suspected) exposure to COVID-19
CPT/HCPCS: C9803; U0003; U0005

== ENCOUNTER 2020-07-10 01:31 | Day surgery (SDC) | payer MEDICARE, OTHER, SELFPAY ==
[2020-07-03 08:52] VITALS: BMI 24.8
[2020-07-10 09:42] VITALS: BP 163/94; PULSE 75; RESP 20; TEMP 37; O2SAT 96
[2020-07-10] MEDS: ACETAMINOPHEN 500 MG TABLET 1000 MG PO (10:11)
[2020-07-10] MEDS: LACTATED RINGERS 1,000 ML 30 ML IV CONT (10:15)
--- NOTE | 2020-07-10 10:48 | SUR.PREOP ---
1030-DISCUSSED WITH PT AND DAUGHTER THAT DR. SHER'S PRIOR CASE IS TAKING MUCH LONGER THAN EXPECTED. PER DR. SHER'S INSTRUCTION, OFFERED PT TO RESCHEDULE SURGERY FOR ANOTHER DAY. PT STATES I WANT THIS DONE TODAY NO MATTER HOW LONG I HAVE TO WAIT PT AWARE WAIT WILL BE MINIMUM OF A FEW HOURS. 1038-KATRIN OTT RN COMPRESSOR OPERATOR ADJUSTER AWARE OF ABOVE DISCUSSION AND HE WILL DISCUSS WITH DR. SHER AND ADVISE.
--- NOTE | 2020-07-10 14:21 | SUR.PREOP ---
1137-SPOKE WITH KATRIN RN HR DIRECTOR, AWARE PT WANTS TO RESCHEDULE BUT WANTS TO KNOW WHEN THAT WILL BE PRIOR TO LEAVING TODAY, DR. SHER STATES CALL EMILY IN OFFICE FOR RESCHEDULE. 1138-SPOKE WITH EMILY, SHE WILL RESCHEDULE PROCEDURE AND COME SPEAK WITH PT. 1200-EMILY HERE TO SPEAK WITH PT AND DAUGHTER.
== END 2020-07-10 12:30 | disposition home or self-care (01) ==
PROVIDERS: PCP Family Medicine; Visit Provider Surgery
DX: K40.90 Unilateral inguinal hernia, without obstruction or gangrene, not specified as recurrent (principal); Z53.9 Procedure and treatment not carried out, unspecified reason
CPT/HCPCS: 99213; A9270; G0463; J7120

== ENCOUNTER → 2020-07-13 02:16 | Outpatient (CLI) | payer MEDICARE, OTHER, SELFPAY ==
[2020-07-14 14:52] LABS: SARS-CoV-2 RNA PCR Negative
== END ==
PROVIDERS: PCP Family Medicine; Visit Provider Surgery
DX: Z01.812 Encounter for preprocedural laboratory examination (principal); Z20.822 Contact with and (suspected) exposure to COVID-19
CPT/HCPCS: C9803; U0003; U0005

== ENCOUNTER 2020-07-16 02:54 | Day surgery (SDC) | payer MEDICARE, OTHER, SELFPAY ==
[2020-07-10 12:05] VITALS: BP 163/94; PULSE 75; RESP 20; TEMP 37; O2SAT 96; BMI 24.4
[2020-07-16] VITALS (13 sets, daily range): BP systolic 136–197; BP diastolic 84–106; PULSE 52–78; RESP 12–20; TEMP 36.3–36.7; O2SAT 96–100
[2020-07-16] MEDS: LACTATED RINGERS 1,000 ML 30 ML IV CONT ×2 (10:20→13:44)
[2020-07-16] MEDS: ACETAMINOPHEN 500 MG TABLET 1000 MG PO (10:21)
--- NOTE | 2020-07-16 11:27 | WPDANESEPPF ---
Anes - Initial Pre Proc Eval Procedure: Operation Date: 07/16/20 12:00 Proposed Procedures p Repair Recurrent Right Inguinal Hernia - Pepito Alvarez MD Date/Time: 07/16/20 11:27 Surgeon: Pepito Alvarez MD Pre Op Diagnosis: recurrent right inguinal hernia Patient Data Age: 79 Gender: M Height: 1.83 m Weight: 82.1 kg Last Vital Signs Temp 36.7 C 07/16/20 09:51 Pulse 78 07/16/20 09:51 Resp 18 07/16/20 09:51 BP 161/94 H 07/16/20 09:51 Pulse Ox 96 07/16/20 09:51 Allergies Allergy/AdvReac Type Severity Reaction Status Date / Time NSAIDS (Non-Steroidal AdvReac Severe AVOIDANCE Verified 07/10/20 14:41 Anti-Inflamma RELATED TO RENAL DISEASE levofloxacin [From Levaquin] AdvReac Mild Itching Verified 07/10/20 14:41 Home Medications Medication Instructions Recorded Confirmed Type triamterene 37.5 1 tablet PO QAM #90 tablet 01/30/20 07/16/20 Rx mg-hydrochlorothiazide 25 mg tablet acetaminophen [Tylenol Extra 500 mg PO Q6H PRN 07/03/20 07/16/20 History Strength] finasteride 5 mg PO QAM 07/03/20 07/16/20 History levothyroxine [Euthyrox] 112 mcg QAM 07/03/20 07/16/20 History hydrocodone-acetaminophen 1 - 2 tablet PO Q6H PRN #25 tablet 07/16/20 Rx Patient hx anesthesia problems: none Family hx anesthesia problems: none PMFSH Past Medical History Medical History (Updated 07/15/20 @ 12:36 by Casey Plummer DO) BPH (benign prostatic hyperplasia) CKD (chronic kidney disease), stage III Hy kid NOS w cr kid I-IV Hypertension Hypothyroidism Surgical History Surgical History History of appendectomy History of cholecystectomy History of right inguinal hernia repair with 6cm Parietex hernia mesh system 04/27/2019 History of tonsillectomy Hx of arthroscopy of left knee Hx of arthroscopy of right knee S/P skin cancer resection 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 Social History Social History Smoking packs per day: 1 Smoking cigarettes per day: 20.0 Years smoked: 20 Smoking pack-years: 20.00 Smoking status: Former smoker Tobacco type: cigarettes Second hand tobacco smoke exposure: No Smoking end date: 03/08/05 Additional smoking assessment comments: STATES 3/4-1PK/DAY/25YRS, QUIT 2004 Alcohol intake: never Substance use: never Substance use type: does not use Living arrangements: alone Gender identity (if verbalized by the patient): Male Spiritual care concerns: No Anes - Eval Final PreProcedure Day of Procedure 07/16/20 11:27 Patient weight: normal Heart: regular rate and rhythm Lungs: clear to auscultation and normal air movement Airway: Mallampati scale Neurological: alert and oriented Last oral intake: >/= 8 hours ASA classification: III Emergent: no Anesthetic plan: proceed Anesthesia type and monitoring: general GIVS and standard monitoring Informed Consent: The patient's anesthetic plan and its attendant risks and benefits were discussed with the patient/family/POA. Questions were solicited and answers provided to the satisfaction of the patient/family/POA.
--- NOTE | 2020-07-16 11:43 | WPDHPUPDATE1 ---
History and Physical Update Update Date/Time: 07/16/20 11:43 History and Physical has been reviewed, including an updated exam of the patient. There are NO changes in the patient's condition. Risks, benefits, and alternatives have been discussed and questions answered. Patient agrees to proceed with procedure.
[2020-07-16] MEDS: ceFAZolin 2 GM/D5W 50 ML 2 GM/50 ML BAG IVPB (11:51)
[2020-07-16] MEDS: BUPIVACAINE HCL 0.5% PF 30 ML VIAL INFILTRATE (12:25)
--- NOTE | 2020-07-16 13:55 | P.OP_ITS ---
Procedure Note - Detailed Date of procedure: 07/16/20 Pre-op diagnosis: recurrent right inguinal hernia Recurrent right inguinal hernia Post-op diagnosis: other (Recurrent indirect right inguinal hernia) Procedure performed: Repair recurrent right inguinal hernia with 8 cm Parietex hernia mesh system Description of procedure: The patient was taken to surgery and IV sedation was administered. The right groin and genitalia were prepped and draped. The old scar was noted. An ellipse was drawn around the old scar with a marker. Local was infiltrated in the skin of the ellipse and into the subcutaneous. I excised the previous scar. Cautery was used for hemostasis. Dissection was then carried down through the subcutaneous and through Willie's fascia. Crossing veins were cauterized and divided. Eventually dissected down to the area of the external oblique aponeurosis. The aponeurosis was exposed. It was somewhat scarred but not heavily. I was able to expose the external ring. I then infiltrated local into the inguinal canal deep to the aponeurosis. I then opened the aponeurosis laterally and carefully extended this medially through the external ring. The leaves of the aponeurosis were freed from the underlying inguinal canal contents. Some of the mesh underneath the aponeurosis on each side was fairly loose. I excised this and discarded it. Any well incorporated mesh was left in place. I then mobilized the cord medially and placed a [place] drain around this area of the cord. I carefully dissected in the cord and found the hernia sac. I then dissected some of the cord to mobilize it back to the internal ring. Great care was taken to avoid injury to cord vessels. Eventually I mobilized the cord thoroughly and also dissected the hernia sac from the spermatic cord. The hernia sac was dissected back to the internal ring. It was dissected to a high dissection. The sac was then dunked into the retroperitoneum. An 8 cm Parietex point hope ira was chosen. It was pulled to deform a plug. It was placed in the defect and then sutured in place with 3 0 Vicryl suture. I closed the hernia defect partially with some 3 0 Vicryl suture as well. I then infiltrated additional local into the transversalis fascia and around the area of the hernia repair. The patch was then cut to the appropriate size and placed over the inguinal canal floor. The lateral leaves were passed around the cord. I then laid the spermatic cord over the patch. I should point out that the ileoinguinal nerve was not seen during the surgery. It appeared to have been divided in the initial operation. I then closed the external oblique aponeurosis with interrupted 3 0 Vicryl suture. Willie's fascia was closed with interrupted 3 0 Vicryl suture. The subcutaneous was closed with interrupted 4 0 Vicryl suture. The skin was loosely approximated with subcuticular interrupted 4 0 Vicryl suture. Finally the skin was closed with a running 4 0 Monocryl skin stitch. The wound was dressed with Exofin surgical adhesive. The patient was awakened and taken to recovery in good condition. Estimated blood loss was 5 cc. Sponge and needle counts were correct x2. Anesthesia: MAC and local (0.5% Marcaine with Exparel) Surgeon: Pepito Alvarez MD Stacker Straightener: Thu ARZATE Estimated blood loss (mL): 5 Drains: No Packing: No Pathology: none sent Complications: None Condition: stable Disposition: PACU Findings: Recurrent indirect hernia
[2020-07-16] MEDS: oxyCODONE HCL (*CRX) 2.5 MG TAB IR PO (14:53)
--- NOTE | 2020-07-16 15:09 | SUR.PHASEII ---
1509- Notified Dr. Plummer patient's BP elevated 197/106 with HR in 60's. Per Dr. Plummer place orders for 5MG hydralazine IVP once. 1515- Patient given Hydralazine 5MG IVP at this time. Will continue to monitor.
[2020-07-16] MEDS: hydrALAZINE HCL 20 MG/ML VIAL 5 MG IV PUSH (15:15)
--- NOTE | 2020-07-16 17:23 | SUR.PHASEII ---
1723- Call to Dr. Alvarez patient having difficulty urinating with known history of BPH. Patient urinated 50mL's of yellow urine and post void residual bladder scan revealed an amount of 430mL's retained in bladder. Per Dr. Alvarez initiate tejada catheter and send patient home with leg bag. Per Dr. Alvarez tejada catheter will be discontinued Wednesday in the office at follow up appointment.
== END 2020-07-16 18:07 | disposition home or self-care (01) ==
PROVIDERS: PCP Family Medicine; Visit Provider Surgery
PROC: (CPT 49520; principal; 2020-07-16 12:00)
DX: K40.91 Unilateral inguinal hernia, without obstruction or gangrene, recurrent (principal); N40.0 Benign prostatic hyperplasia without lower urinary tract symptoms; I12.9 Hypertensive chronic kidney disease with stage 1 through stage 4 chronic kidney disease, or unspecified chronic kidney disease; N18.30 Chronic kidney disease, stage 3 unspecified; E03.9 Hypothyroidism, unspecified; Z87.891 Personal history of nicotine dependence
CPT/HCPCS: 49520; A9270; C1781; C9290; J0360; J0461; J0690; J1100; J2405; J2704; J3010; J7120

== ENCOUNTER 2020-12-31 06:37 | Outpatient (CLI) | payer MEDICARE, OTHER, SELFPAY ==
[2020-12-31 07:34] LABS: Hematocrit 43.1 % (42.0-52.0); Hemoglobin 14.9 g/dL (14.0-18.0); Mean Corpuscular HGB Conc 34.6 g/dl (32-36); Mean Corpuscular Hemoglobin 35.3 pg (26-34); Mean Corpuscular Volume 102.1 fl (80-100); Mean Platelet Volume 8.9 fl (7.4-10.4); Platelet Count Result 229 k/mm3 (150-375); Red Blood Count 4.22 M/mm3 (4.6-6.20); Red Cell Distribution Width 12.6 % (11.5-14.5); White Blood Count 7.5 K/mm3 (4.5-10.0)
[2020-12-31 07:51] LABS: Alanine Aminotransferase 13 U/L (4-50); Albumin Level 3.9 g/dL (3.5-5.1); Alkaline Phosphatase 118 U/L (38-126); Anion Gap 10 mmol/L (8-16); Aspartate Amino Transferase 26 U/L (17-59); Bilirubin,Total 0.7 mg/dL (0.2-1.3); Blood Urea Nitrogen 30 mg/dL (9-20); Calcium 9.8 mg/dL (8.4-10.2); Carbon Dioxide 28 mmol/L (22-30); Chloride 97 mmol/L (98-107); Cholesterol 151 mg/dL (0-200); Estimated Glomerular Filt Rate 39; Glucose 104 mg/dL (65-110); HDL Direct 48 mg/dL; Sodium 135 mmol/L (137-145); Triglycerides 74 mg/dL (<150)
[2020-12-31 08:02] LABS: LDL Cholesterol Direct 79 mg/dL
== END 2020-12-31 06:38 | disposition home or self-care (01) ==
PROVIDERS: PCP Family Medicine; Visit Provider Family Medicine
DX: E03.9 Hypothyroidism, unspecified (principal); I12.9 Hypertensive chronic kidney disease with stage 1 through stage 4 chronic kidney disease, or unspecified chronic kidney disease; E78.5 Hyperlipidemia, unspecified; N18.30 Chronic kidney disease, stage 3 unspecified; K40.90 Unilateral inguinal hernia, without obstruction or gangrene, not specified as recurrent
CPT/HCPCS: 36415; 80053; 80061; 84443; 85027

== ENCOUNTER 2021-02-14 08:33 | Emergency (ER) | payer MEDICARE, OTHER, SELFPAY ==
[2021-02-14] VITALS (15 sets, daily range): BP systolic 126–140; BP diastolic 69–91; PULSE 76–89; RESP 16–20; TEMP 36.2; O2SAT 96–99
--- NOTE | ~2021-02-14 | CT_ITS ---
EXAMINATION: CT abdomen pelvis w con DATE: 02/14/2021 11:04 INDICATION: Blood in stool. Diarrhea. Abdominal pain. TECHNIQUE: Computed tomography (CT) of the abdomen and pelvis was performed with 100 mL Omnipaque 350 intravenous contrast. Automated exposure control and iterative reconstruction technique were employe d. The dose-length product was 755.95 mGy-cm. COMPARISON: CT abdomen and pelvis 05/11/2020 FINDINGS: The visualized portions of the lung bases demonstrate severe chronic interstitial lung dise ase in a pattern of usual interstitial pneumonia (UIP). No pleural effusion. There is left atrial enl argement of the heart. There are coronary artery calcifications. No pericardial effusion. Calcificati ons in the liver consistent with old granulomatous disease. The spleen, pancreas, and left adrenal gl and are normal. There is chronic thickening of right adrenal gland, likely benign. There is cortical thinning of the kidneys. There are cysts in the kidneys measuring up to 4.9 cm on the left. The prost ate is moderately enlarged. There is a left inguinal hernia containing fat. There is diverticulosis o f the colon without evidence of diverticulitis. The appendix is not visualized. There are no patholog ically enlarged lymph nodes. There is no free intraperitoneal fluid. There is a 3.2 cm fusiform infra renal aortic aneurysm. There is severe lumbar spondylosis. IMPRESSION: 1. 3.2 cm fusiform infrarenal aortic aneurysm. 2. Severe chronic interstitial lung disease in a pattern of usual interstitial pneumonia (UIP). Reviewed, dictated and finalized at location A. FELLER OPERATOR
[2021-02-14 09:47] LABS: Basophils Percent Auto 0.5 % (0.2-1.2); Eosinophils Absolute Auto 0.2 K/mm3 (0-0.3); Eosinophils Percent Auto 2.5 % (0-4.4); Hematocrit 44.8 % (42.0-52.0); Hemoglobin 15.3 g/dL (14.0-18.0); Immature Granulocyte Absolute 0.03 K/mm3 (0.00-0.031); Immature Granulocyte Percent A 0.4 % (0-0.5); Mean Corpuscular HGB Conc 34.2 g/dl (32-36); Mean Corpuscular Hemoglobin 34.6 pg (26-34); Mean Corpuscular Volume 101.4 fl (80-100); Monocytes Absolute Auto 0.7 K/mm3 (0.1-0.6); Monocytes Percent Auto 8.6 % (2.6-8.5); Neutrophils Absolute Auto 5.8 K/mm3 (1.3-6.7); Platelet Count Result 248 k/mm3 (150-375); Red Blood Count 4.42 M/mm3 (4.6-6.20); Red Cell Distribution Width 12.8 % (11.5-14.5); White Blood Count 8.4 K/mm3 (4.5-10.0)
[2021-02-14 09:58] LABS: Partial Thromboplastin Time 27.1 SECONDS (22.3-36.8); Prothrombin Time 12.9 Seconds (11.1-14.7)
[2021-02-14 10:17] LABS: Alanine Aminotransferase 19 U/L (4-50); Albumin Level 4.2 g/dL (3.5-5.1); Alkaline Phosphatase 111 U/L (38-126); Anion Gap 11 mmol/L (8-16); Aspartate Amino Transferase 27 U/L (17-59); Blood Urea Nitrogen 34 mg/dL (9-20); Calcium 9.8 mg/dL (8.4-10.2); Carbon Dioxide 26 mmol/L (22-30); Chloride 98 mmol/L (98-107); Estimated CRCL calculation 30 ml/min; Estimated Glomerular Filt Rate 34; Glucose 111 mg/dL (65-110); Potassium 3.6 mmol/L (3.4-5.0); Sodium 135 mmol/L (137-145)
--- NOTE | 2021-02-14 10:51 | ED.GIBLEED ---
HPI - GI Bleed General Chief complaint: GI Bleed Stated complaint: blood in stool Time Seen by Provider: 02/14/21 10:12 Source: patient Mode of arrival: ambulatory Limitations: no limitations History of Present Illness HPI Narrative: This is an 80-year-old male that presents to the emergency department for blood in the stool present over the last week. Reports he has had trouble with constipation, also will intermittently have some diarrhea. He notices bright red blood mixed in with his stool. He does report history of hemorrhoids. He was concerned he may have an infection which prompted him to be seen. Denies fever, vomiting, dysuria, hematuria. Related Data Home Medications Medication Instructions Recorded Confirmed acetaminophen [Tylenol Extra 500 mg PO Q6H PRN 07/03/20 12/30/20 Strength] finasteride 5 mg PO QAM 07/03/20 12/30/20 levothyroxine [Euthyrox] 112 mcg QAM 07/03/20 12/30/20 Allergies Allergy/AdvReac Type Severity Reaction Status Date / Time NSAIDS (Non-Steroidal AdvReac Severe AVOIDANCE Verified 02/14/21 09:42 Anti-Inflamma RELATED TO RENAL DISEASE levofloxacin [From Levaquin] AdvReac Mild Itching Verified 02/14/21 09:42 Review of Systems Review of Systems: CONSTITUTIONAL: Denies fever GASTROINTESTINAL: Reports abdominal pain and diarrhea. Denies nausea, vomiting GENITOURINARY: Denies dysuria or hematuria. All systems reviewed & are unremarkable except as noted in HPI and below PMFSH Past Medical History Medical History (Updated 02/14/21 @ 12:41 by Joanne Christensen PA-C) BPH (benign prostatic hyperplasia) CKD (chronic kidney disease), stage III Hy kid NOS w cr kid I-IV Hypertension Hypothyroidism Surgical History Surgical History History of appendectomy History of cholecystectomy History of right inguinal hernia repair with 6cm Parietex hernia mesh system 04/27/2019 07/16/2020 Repair recurrent right inguinal hernia with 8 cm Parietex hernia mesh system History of tonsillectomy Hx of arthroscopy of left knee Hx of arthroscopy of right knee S/P skin cancer resection 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 Social History Social History Smoking packs per day: 1 Smoking cigarettes per day: 20.0 Years smoked: 20 Smoking pack-years: 20.00 Smoking status: Former smoker Tobacco type: cigarettes Second hand tobacco smoke exposure: No Smoking end date: 03/08/05 Additional smoking assessment comments: STATES 3/4-1PK/DAY/25YRS, QUIT 2004 Alcohol intake: never Substance use: never Substance use type: does not use Gender identity (if verbalized by the patient): Male Spiritual care concerns: No Exam Narrative: GENERAL: Well-appearing, well-nourished, and in no acute distress. HEAD: Normocephalic, atraumatic. EYES: EOMI. CHEST: Clear to auscultation. No respiratory distress. No wheezes rales or rhonchi HEART: Regular rate and rhythm. No murmur heard. Normal peripheral pulses. ABDOMEN: Soft, nontender, nondistended, normal active bowel sounds. EXTREMITIES: Normal range of motion. No edema. SKIN: Warm, dry, no rash. NEURO: No focal deficits. Alert and oriented x3. PSYCH: Normal mood and affect RECTAL: No external hemorrhoids or fissures noted. No active bleeding. Hemoccult positive Course Consultations Consultation #1: Spoke with patient's primary about workup who will follow up in clinic Date: 02/14/21 Time: 11:36 Vital Signs Vital signs: Vital Signs Temperature 97.2 F L 02/14/21 08:43 Pulse Rate 89 02/14/21 08:43 Respiratory Rate 20 02/14/21 08:43 Blood Pressure 140/91 H 02/14/21 08:43 Pulse Oximetry 97 02/14/21 08:43 Temperature 97.2 F L 02/14/21 08:43 Pulse Rate 89 02/14/21 08:43 Res
[2021-02-14] MEDS: SODIUM CHLORIDE 0.9% IV 500 ML 999 ML IV CONT (11:16)
--- NOTE | 2021-02-14 11:47 | PC.NURSE ---
PA at bedside to discuss results with pt.
== END 2021-02-14 12:54 | disposition home or self-care (01) ==
PROVIDERS: Emergency Provider Emergency Medicine; PCP Family Medicine
DX: K92.1 Melena (principal); N40.0 Benign prostatic hyperplasia without lower urinary tract symptoms; I13.10 Hypertensive heart and chronic kidney disease without heart failure, with stage 1 through stage 4 chronic kidney disease, or unspecified chronic kidney disease; N18.30 Chronic kidney disease, stage 3 unspecified; E03.9 Hypothyroidism, unspecified; Z85.828 Personal history of other malignant neoplasm of skin; Z87.891 Personal history of nicotine dependence; I71.4 Abdominal aortic aneurysm, without rupture; J84.9 Interstitial pulmonary disease, unspecified
CPT/HCPCS: 36415; 74177; 80053; 85025; 85610; 85730; 86850; 86900; 86901; 96360; 99284; J7040; Q9967

== ENCOUNTER 2021-03-20 06:33 | Outpatient (CLI) | payer MEDICARE, OTHER, SELFPAY ==
[2021-03-20 08:29] LABS: Alanine Aminotransferase 14 U/L (4-50); Albumin Level 4.2 g/dL (3.5-5.1); Alkaline Phosphatase 132 U/L (38-126); Anion Gap 10 mmol/L (8-16); Aspartate Amino Transferase 25 U/L (17-59); Bilirubin,Total 0.9 mg/dL (0.2-1.3); Blood Urea Nitrogen 40 mg/dL (9-20); Calcium 9.6 mg/dL (8.4-10.2); Carbon Dioxide 28 mmol/L (22-30); Chloride 97 mmol/L (98-107); Estimated Glomerular Filt Rate 34; Glucose 102 mg/dL (65-110); Potassium 3.5 mmol/L (3.4-5.0); Sodium 135 mmol/L (137-145)
== END 2021-03-20 06:34 | disposition home or self-care (01) ==
PROVIDERS: PCP Family Medicine; Visit Provider Family Medicine
DX: N18.30 Chronic kidney disease, stage 3 unspecified (principal)
CPT/HCPCS: 36415; 80053

== ENCOUNTER 2021-04-16 08:32 | Outpatient (CLI) | payer MEDICARE, OTHER, SELFPAY ==
[2021-04-16 09:37] LABS: Basophils Percent Auto 0.2 % (0.2-1.2); Immature Granulocyte Absolute 0.02 K/mm3 (0.00-0.031); Immature Granulocyte Percent A 0.2 % (0-0.5); Lymphocytes Absolute Auto 0.79 K/mm3 (0.9-3.2); Lymphocytes Percent Auto 9.8 % (18.3-44.2); Mean Corpuscular HGB Conc 34.8 g/dl (32-36); Mean Corpuscular Hemoglobin 34.4 pg (26-34); Mean Corpuscular Volume 98.9 fl (80-100); Mean Platelet Volume 10.2 fl (7.4-10.4); Monocytes Absolute Auto 0.8 K/mm3 (0.1-0.6); Monocytes Percent Auto 9.5 % (2.6-8.5); Neutrophils Absolute Auto 6.4 K/mm3 (1.3-6.7); Neutrophils Percent Auto 80.3 % (45.5-73.1); Platelet Count Result 185 k/mm3 (150-375); Red Blood Count 4.65 M/mm3 (4.6-6.20); Red Cell Distribution Width 12.8 % (11.5-14.5)
[2021-04-16 09:51] LABS: Alanine Aminotransferase 34 U/L (4-50); Albumin Level 4.1 g/dL (3.5-5.1); Alkaline Phosphatase 109 U/L (38-126); Anion Gap 11 mmol/L (8-16); Aspartate Amino Transferase 39 U/L (17-59); Bilirubin,Total 1.1 mg/dL (0.2-1.3); Blood Urea Nitrogen 49 mg/dL (9-20); Calcium 9.7 mg/dL (8.4-10.2); Carbon Dioxide 21 mmol/L (22-30); Chloride 102 mmol/L (98-107); Estimated Glomerular Filt Rate 32; Glucose 121 mg/dL (65-110); Potassium 3.5 mmol/L (3.4-5.0); Sodium 134 mmol/L (137-145)
[2021-04-16 10:17] LABS: Thyroid Stimulating Hormone 0.135 uIU/mL (0.465-4.680)
== END 2021-04-16 08:33 | disposition home or self-care (01) ==
LOC: ANHLAB 08:34
PROVIDERS: PCP Family Medicine; Visit Provider Family Medicine
DX: R63.4 Abnormal weight loss (principal); E03.9 Hypothyroidism, unspecified; N18.30 Chronic kidney disease, stage 3 unspecified; I12.9 Hypertensive chronic kidney disease with stage 1 through stage 4 chronic kidney disease, or unspecified chronic kidney disease
CPT/HCPCS: 36415; 80053; 84443; 85025

== ENCOUNTER 2021-06-30 10:29 | Outpatient (CLI) | payer MEDICARE, OTHER, SELFPAY ==
[2021-06-30 11:04] LABS: Alanine Aminotransferase 11 U/L (4-50); Albumin Level 3.9 g/dL (3.5-5.1); Alkaline Phosphatase 119 U/L (38-126); Anion Gap 6 mmol/L (8-16); Aspartate Amino Transferase 29 U/L (17-59); Bilirubin,Total 0.6 mg/dL (0.2-1.3); Blood Urea Nitrogen 32 mg/dL (9-20); Calcium 9.1 mg/dL (8.4-10.2); Carbon Dioxide 28 mmol/L (22-30); Chloride 103 mmol/L (98-107); Estimated Glomerular Filt Rate 42; Glucose 105 mg/dL (65-110); Potassium 3.7 mmol/L (3.4-5.0); Sodium 137 mmol/L (137-145)
[2021-06-30 11:31] LABS: Thyroid Stimulating Hormone 0.727 uIU/mL (0.465-4.680)
== END 2021-06-30 10:30 | disposition home or self-care (01) ==
PROVIDERS: PCP Family Medicine; Visit Provider Family Medicine
DX: E03.9 Hypothyroidism, unspecified (principal); I12.9 Hypertensive chronic kidney disease with stage 1 through stage 4 chronic kidney disease, or unspecified chronic kidney disease
CPT/HCPCS: 36415; 80053; 84443

== ENCOUNTER 2021-10-18 11:25 | Emergency (ER) | payer MEDICARE, OTHER, SELFPAY ==
[2021-10-18 11:27] VITALS: BP 138/90; PULSE 99; RESP 18; TEMP 36.4; O2SAT 97
--- NOTE | 2021-10-18 12:00 | ED.MALEGU ---
HPI - Male Genitourinary General Chief complaint: Urogenital-Male Stated complaint: hematuria Time Seen by Provider: 10/18/21 11:36 History of Present Illness HPI Narrative: This is an 81-year-old male with past medical history of hypothyroidism and recently diagnosed with UTI and, presents to the emergency department with concerns for blood in urine. He notes prior to his initial presentation he noted blood in urine was seen by his urologist and started on Macrobid. He comes in today because he says the color has appeared more bright red. He denies chest pain, shortness of breath, dyspnea on exertion, fevers or abdominal pain. He denies bleeding from any other source. Related Data Home Medications Medication Instructions Recorded Confirmed acetaminophen 500 mg tablet 500 mg PO Q6H PRN Pain 07/03/20 06/30/21 (Tylenol Extra Strength) finasteride 5 mg tablet 5 mg PO QAM 07/03/20 06/30/21 Allergies Allergy/AdvReac Type Severity Reaction Status Date / Time NSAIDS (Non-Steroidal AdvReac Severe AVOIDANCE Verified 10/18/21 11:31 Anti-Inflamma RELATED TO RENAL DISEASE levofloxacin [From Levaquin] AdvReac Mild Itching Verified 10/18/21 11:31 Review of Systems Review of Systems: CONSTITUTIONAL: Denies fever, chills, or sweats. EYES: Denies visual changes, redness, or discharge. ENT: Denies rhinorrhea, congestion, sore throat, or otalgia. CARDIOVASCULAR: Denies chest pain, palpitations, or edema. RESPIRATORY: Denies cough or dyspnea. GASTROINTESTINAL: Denies abdominal pain, nausea, vomiting, or diarrhea. GENITOURINARY: +hematuria, Denies dysuria or. SKIN: Denies rash or itching. MUSCULOSKELETAL: Denies back pain, joint pain, or myalgia. NEUROLOGIC: Denies headache, numbness, dizziness, or weakness. PSYCHIATRIC: Denies anxiety or depression. 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 Social History Social History Smoking packs per day: 1 Smoking cigarettes per day: 20.0 Years smoked: 20 Smoking pack-years: 20.00 Smoking status: Former smoker Tobacco type: cigarettes Second hand tobacco smoke exposure: No Smoking end date: 03/08/05 Additional smoking assessment comments: STATES 3/4-1PK/DAY/25YRS, QUIT 2004 Alcohol intake: never Substance use: never Substance use type: does not use Gender identity (if verbalized by the patient): Male Spiritual care concerns: No Exam Narrative: GENERAL: Well-appearing, well-nourished, and in no acute distress. HEAD: Normocephalic, atraumatic. EYES: PERRLA and EOMI. ENT: Nares clear, no rhinorrhea or epistaxis. Mucous membranes moist. Oropharynx without tonsillar hypertrophy exudate or other lesions. NECK: Supple. No adenopathy or masses. No carotid bruits or JVD CHEST: Clear to auscultation. No respiratory distress. No wheezes rales or rhonchi HEART: Regular rate and rhythm. No murmur heard. Normal peripheral pulses. ABDOMEN: Soft, nontender, nondistended, normal active bowel sounds. No flank tenderness to palpation EXTREMITIES: Normal range of motion. No edema. SKIN: Warm, dry, n
[2021-10-18 12:29] LABS: Basophils Percent Auto 0.6 % (0.2-1.2); Eosinophils Absolute Auto 0.1 K/mm3 (0-0.3); Hematocrit 42.4 % (42.0-52.0); Hemoglobin 13.7 g/dL (14.0-18.0); Immature Granulocyte Absolute 0.02 K/mm3 (0.00-0.031); Immature Granulocyte Percent A 0.3 % (0-0.5); Lymphocytes Absolute Auto 0.74 K/mm3 (0.9-3.2); Lymphocytes Percent Auto 10.5 % (18.3-44.2); Mean Corpuscular HGB Conc 32.3 g/dl (32-36); Mean Corpuscular Hemoglobin 33.5 pg (26-34); Mean Corpuscular Volume 103.7 fl (80-100); Monocytes Absolute Auto 0.6 K/mm3 (0.1-0.6); Monocytes Percent Auto 7.8 % (2.6-8.5); Neutrophils Absolute Auto 5.6 K/mm3 (1.3-6.7); Neutrophils Percent Auto 78.8 % (45.5-73.1); Platelet Count Result 239 k/mm3 (150-375); Red Blood Count 4.09 M/mm3 (4.6-6.20); Red Cell Distribution Width 13.2 % (11.5-14.5); White Blood Count 7.1 K/mm3 (4.5-10.0)
[2021-10-18 12:52] LABS: Color Urine Light Red (Yellow)
[2021-10-18 12:53] LABS: Add Urine Microscopic? YES; Appearance Urine Cloudy (Clear)
[2021-10-18 12:58] LABS: Mucus Urine Rare /lpf; RBC Urine >75 /hpf (0-2); Squamous Epithelial Cell Urine Occasional /hpf (Few)
== END 2021-10-18 13:37 | disposition home or self-care (01) ==
PROVIDERS: Emergency Provider Preventive Medicine Aerospace Medicine; PCP Family Medicine
DX: N39.0 Urinary tract infection, site not specified (principal); R31.9 Hematuria, unspecified; E03.9 Hypothyroidism, unspecified; N40.0 Benign prostatic hyperplasia without lower urinary tract symptoms; I12.9 Hypertensive chronic kidney disease with stage 1 through stage 4 chronic kidney disease, or unspecified chronic kidney disease; N18.30 Chronic kidney disease, stage 3 unspecified; Z85.828 Personal history of other malignant neoplasm of skin; Z87.891 Personal history of nicotine dependence
CPT/HCPCS: 36415; 81001; 85025; 87086; 99283

== ENCOUNTER 2021-10-24 07:08 | Outpatient (CLI) | payer MEDICARE, OTHER, SELFPAY ==
--- NOTE | ~2021-10-24 | CT_ITS ---
EXAMINATION: CT abdomen pelvis wo/w con DATE: 10/24/2021 08:20 INDICATION: Gross hematuria TECHNIQUE: Computed tomography (CT) of the abdomen and pelvis was performed without and with 130 cc O mnipaque 350 intravenous contrast. The dose-length product was 791.85 mGy-cm. Automated exposure cont rol and iterative reconstruction technique were employed. COMPARISON: CT dated 02/14/2021 FINDINGS: There is chronic interstitial fibrosis of the lung bases. Heart size normal. There is ather osclerosis of the aorta. There is a saccular aneurysm of the suprarenal abdominal aorta measuring 3.2 cm. There is also aneurysm of the infrarenal abdominal aorta measuring 3.2 cm. There are bilateral r enal cysts measuring up to 5 cm. Prostate gland is enlarged. There is nodularity to the liver surface , suspicious for cirrhosis. No pathologic lymph node enlargement. Severe lumbar spondylosis. Nonobstr uctive bowel gas pattern. Colonic diverticulosis without evidence for diverticulitis. There are adi cystectomy clips. No free air or free fluid. IMPRESSION: 1. Suprarenal and infrarenal saccular aneurysms measuring up to 3.2 cm. 2: Severe chronic interstitial lung disease. Reviewed, dictated and finalized at location B.
--- NOTE | ~2021-10-24 | XR_ITS ---
XR abdomen/kub 1V 10/24/2021 07:40 Indication: Gross hematuria Procedure: KUB Comparison: CT dated 02/14/2021 Findings: Bowel gas pattern is nonobstructive. Moderate colonic fecal loading. There are cholecystect mau clips. There is severe lumbar spondylosis. Kidneys are obscured by bowel content. No definite maria g al stones. Impression: 1: No acute abdominal abnormality. Reviewed, dictated and finalized at location B. Impression: 1: No acute abdominal abnormality.
[2021-10-24 07:52] LABS: Estimated Glomerular Filt Rate 34
== END 2021-10-24 07:09 | disposition home or self-care (01) ==
PROVIDERS: PCP Family Medicine; Visit Provider Urology
DX: R31.0 Gross hematuria (principal); I25.10 Atherosclerotic heart disease of native coronary artery without angina pectoris; J84.9 Interstitial pulmonary disease, unspecified; I72.8 Aneurysm of other specified arteries; M47.816 Spondylosis without myelopathy or radiculopathy, lumbar region
CPT/HCPCS: 74018; 74178; Q9967

== ENCOUNTER 2021-11-05 23:24 | Inpatient (IN) | payer MEDICARE, OTHER, SELFPAY ==
[2021-11-05] VITALS (8 sets, daily range): BP systolic 111–125; BP diastolic 63–77; PULSE 91–110; RESP 19–29; TEMP 36.6; O2SAT 93–96
--- NOTE | ~2021-11-05 | US_ITS ---
EXAMINATION: US renal BI DATE: 11/06/2021 11:21 INDICATION: Acute kidney injury TECHNIQUE: Multiple grayscale and Doppler ultrasound images of the kidneys were obtained. COMPARISON: CT, 10/24/2021 FINDINGS: The right kidney measures 11.3 x 4.8 x 4.9 cm and contains cysts measuring up to 4.3 cm. Th e left kidney measures 13.0 x 6.7 x 7.2 cm and contains multiple cysts measuring up to 4.7 cm. The ki dneys demonstrate increased parenchymal echogenicity. There is no hydronephrosis. The bladder is deco mpressed by Barber catheter. IMPRESSION: 1. Medical renal disease. Reviewed, dictated and finalized at location A. IMPRESSION: 1. Medical renal disease.
--- NOTE | ~2021-11-05 | XR_ITS ---
EXAMINATION: XR knee RT 3V DATE: 11/06/2021 01:10 INDICATION: Right knee pain. TECHNIQUE: 3 views of right knee were obtained. COMPARISON: None. FINDINGS: Bone alignment is normal. No fracture. There is mild tricompartmental osteoarthritis. No kn ee joint effusion. IMPRESSION: 1. Mild right knee osteoarthritis. Reviewed, dictated and finalized at location A.
--- NOTE | ~2021-11-05 | XR_ITS ---
EXAMINATION: XR chest 1V portable DATE: 11/11/2021 07:04 INDICATION: Midline placement. TECHNIQUE: A single frontal view of the chest was obtained. COMPARISON: Chest single view 11/07/2021, CT abdomen and pelvis 10/24/2021 FINDINGS: The lung volumes are normal. There is a diffuse interstitial pattern in the lungs with arch itectural distortion. There are lucencies in the lungs. No pleural effusion or pneumothorax. The hear t size is normal. There is a left upper extremity catheter with tip overlying the axilla. IMPRESSION: 1. Catheter tip overlying left axilla. 2. Stable diffuse lung disease, likely a combination of emphysema and chronic interstitial lung disea se. Reviewed, dictated and finalized at location A. IMPRESSION: 1. Catheter tip overlying left axilla. 2. Stable diffuse lung disease, likely a combination of emphysema and chronic i nterstitial lung disease.
--- NOTE | ~2021-11-05 | XR_ITS ---
EXAMINATION: XR chest 1V portable DATE: 11/07/2021 06:00 INDICATION: Interstitial lung disease. TECHNIQUE: A single frontal view of the chest was obtained. COMPARISON: Chest 2 views 05/18/2017, 10/24/2021 FINDINGS: The lung volumes are normal. There is a diffuse interstitial pattern in the lungs with a lo wer lung predominance. There are lucencies in the lungs. No pleural effusion or pneumothorax. The hea rt size is normal. IMPRESSION: 1. Diffuse lung disease with worsening from 05/18/2017, likely a combination of emphysema and chronic interstitial lung disease. Reviewed, dictated and finalized at location A.
--- NOTE | 2021-11-05 23:31 | ECG_ITS ---
Measurements Intervals Faith Rate: 106 P: 47 CO: 166 QRS: -11 QRSD: 96 T: 20 QT: 319 QTc: 424 Interpretive Statements SINUS TACHYCARDIA POSSIBLE LEFT ATRIAL ENLARGEMENT BASELINE ARTIFACT- II, III, AVR, AVL, AVF BORDERLINE ECG COMPARED TO ECG 04/18/2019 11:20:52 SINUS TACHYCARDIA NOW PRESENT Electronically Signed On 11-06-2021 8:02:16 CDT by Joe Beaulieu D.O.
[2021-11-05] MEDS: MORPHINE SULFATE (*CRX) 4 MG/ML INJ IV PUSH (23:40)
[2021-11-05 23:50] LABS: Basophils Percent Auto 0.2 % (0.2-1.2); Eosinophils Percent Auto 0.1 % (0-4.4); Hematocrit 38.2 % (42.0-52.0); Hemoglobin 13.3 g/dL (14.0-18.0); Immature Granulocyte Absolute 0.06 K/mm3 (0.00-0.031); Immature Granulocyte Percent A 0.4 % (0-0.5); Lymphocytes Absolute Auto 0.43 K/mm3 (0.9-3.2); Lymphocytes Percent Auto 2.6 % (18.3-44.2); Mean Corpuscular HGB Conc 34.8 g/dl (32-36); Mean Corpuscular Hemoglobin 34.1 pg (26-34); Mean Corpuscular Volume 97.9 fl (80-100); Monocytes Absolute Auto 0.9 K/mm3 (0.1-0.6); Monocytes Percent Auto 5.1 % (2.6-8.5); Neutrophils Absolute Auto 15.5 K/mm3 (1.3-6.7); Neutrophils Percent Auto 91.6 % (45.5-73.1); Platelet Count Result 242 k/mm3 (150-375); Red Cell Distribution Width 12.9 % (11.5-14.5); White Blood Count 16.8 K/mm3 (4.5-10.0)
[2021-11-05 23:59] LABS: INR 1.2; Prothrombin Time 14.5 Seconds (11.1-14.7)
[2021-11-06] VITALS (45 sets, daily range): BP systolic 97–149; BP diastolic 49–76; PULSE 59–93; RESP 9–31; TEMP 36.5–36.7; O2SAT 90–100; BMI 21.9
[2021-11-06 00:04] LABS: Uric Acid 5.3 mg/dL (3.5-8.5)
[2021-11-06 00:08] LABS: Anion Gap 15 mmol/L (8-16); Blood Urea Nitrogen 39 mg/dL (9-20); CRP 6.4 mg/dL (<1.0); Calcium 9.6 mg/dL (8.4-10.2); Carbon Dioxide 21 mmol/L (22-30); Chloride 95 mmol/L (98-107); Estimated Glomerular Filt Rate 26; Glucose 129 mg/dL (65-110); Potassium 3.5 mmol/L (3.4-5.0); Sodium 131 mmol/L (137-145)
[2021-11-06 00:20] LABS: Erythrocyte Sedimentation Rate 24 mm/hr (0-20)
[2021-11-06] MEDS: MORPHINE SULFATE (*CRX) 4 MG/ML INJ IV PUSH ×3 (00:23→19:55)
[2021-11-06] MEDS: SODIUM CHLORIDE 0.9% IV 1,000 ML 999 ML IV CONT ×2 (00:31→04:02)
[2021-11-06] MEDS: LIDO 1%/EPINEPHRINE 1:100,000 20 ML VIAL 5 ML INFILTRATE (02:00)
--- NOTE | 2021-11-06 02:22 | ED.GENADULT ---
HPI - General Adult General Chief complaint: Extremity Problem,Nontraumatic Stated complaint: R KNEE & SHOULDER PAIN, EMESIS Time Seen by Provider: 11/05/21 23:29 History of Present Illness HPI narrative: Patient is an 81-year-old male who presents ER with right-sided knee pain. Began in the morning on 11/05/2021. Progressed throughout the day. No fevers or chills or sweats. Noticed swelling. Unable to bear weight. No numbness or tingling. Any sort of movement at the knee causes pain shooting up his leg. Patient reports recent urinary infection couple weeks ago where he was passing blood and was treated with antibiotics by his urologist. No current infectious symptoms including diarrhea/dysuria/cough/dental pain. Related Data Home Medications Medication Instructions Recorded Confirmed acetaminophen 500 mg tablet 500 mg PO Q6H PRN Pain 07/03/20 06/30/21 (Tylenol Extra Strength) finasteride 5 mg tablet 5 mg PO QAM 07/03/20 06/30/21 Allergies Allergy/AdvReac Type Severity Reaction Status Date / Time NSAIDS (Non-Steroidal AdvReac Severe AVOIDANCE Verified 11/05/21 23:33 Anti-Inflamma RELATED TO RENAL DISEASE levofloxacin [From Levaquin] AdvReac Mild Itching Verified 11/05/21 23:33 Review of Systems Review of Systems: All systems reviewed & are unremarkable except as noted in HPI and below Constitutional: Constitutional: Denies chills, Denies fatigue and Denies fever(s) ENT: Denies nasal congestion and Denies sore throat Cardiovascular: Cardiovascular: Denies chest pain, Denies rapid heart rate and Denies radiating jaw, neck or arm pain Respiratory: Respiratory: Denies cough and Denies dyspnea Musculoskeletal: Musculoskeletal: Reports arthralgias, Reports joint swelling and Reports muscle cramps Integumentary/Breasts: Skin/Breast: Denies erythema and Denies rash PMF Past Medical History Medical History AAA (abdominal aortic aneurysm) BPH (benign prostatic hyperplasia) CKD (chronic kidney disease), stage III Hy kid NOS w cr kid I-IV Hypertension Hypothyroidism Surgical History Surgical History History of appendectomy History of cholecystectomy History of right inguinal hernia repair with 6cm Parietex hernia mesh system 04/27/2019 07/16/2020 Repair recurrent right inguinal hernia with 8 cm Parietex hernia mesh system History of tonsillectomy Hx of arthroscopy of left knee Hx of arthroscopy of right knee S/P skin cancer resection 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 Social History Social History Smoking packs per day: 1 Smoking cigarettes per day: 20.0 Years smoked: 20 Smoking pack-years: 20.00 Smoking status: Former smoker Tobacco type: cigarettes Second hand tobacco smoke exposure: No Smoking end date: 03/08/05 Additional smoking assessment comments: STATES 3/4-1PK/DAY/25YRS, QUIT 2004 Alcohol intake: never Substance use: never Substance use type: does not use Gender identity (if verbalized by the patient): Male Spiritual care concerns: No Exam Narrative: GENERAL: Well-appearing, well-nourished, and in no acute distress. HEAD: Normocephalic, atraumatic. ENT: Mucous membranes moist. CHEST: Clear to auscultation. No respiratory distress. HEART: Regular rate and rhythm. Normal peripheral pulses. ABDOMEN: Soft, nontender, nondistended. EXTREMITIES: Right lower extremity with moderate knee effusion with warm knee but no redness. Unable bolds or perform range of motion due to pain. Most comfortable in passively flexed position. SKIN: Warm, dry, no rash. NEURO: Alert and oriented x3. PSYCH: Normal mood and affect. Course Course Emergency Course: Concern for
[2021-11-06 03:08] LABS: Source Synovial Fluid Synovial fluid
[2021-11-06 03:09] LABS: Appearance Synovial Fluid Cloudy (Clear); Color Synovial Fluid Brown (Colorless)
[2021-11-06 03:10] LABS: RBC Synovial Fluid 0 /uL (0-0)
[2021-11-06] MEDS: MORPHINE SULFATE (*CRX) 2 MG/ML INJ IV PUSH (03:12)
[2021-11-06 03:32] LABS: Lymphocytes Synovial Fluid 7 %; Monocytes Synovial Fluid 1 %; Neutrophils Synovial Fluid 92 % (0-25)
[2021-11-06 03:43] LABS: Crystals Synovial Fluid None Seen (None Seen)
[2021-11-06] MEDS: HYDROmorphone HCL INJ (*CRX) 1 MG/ML SYR 0.5 MG IV PUSH (04:02)
--- NOTE | 2021-11-06 04:08 | PM.IMHP ---
H&P: HPI History of Present Illness Date/Time: 11/06/21 04:08 Chief Complaint: Knee pain Narrative: 81-year-old male with past medical history significant for hypertension, hypothyroidism, CKD, BPH is presenting with right knee pain that has gotten progressively worse throughout the day. Some associated edema. Pain is so severe patient is unable to bear weight on it. There is no paresthesias or radiation of the pain. Patient states he had a UTI few weeks ago with hematuria treated with antibiotics by urologist. No chest pain or shortness of breath. No fevers or chills. No nausea vomiting or diarrhea In the ER, Orthopedic surgery was consulted. Joint fluid was aspirated and showed significant neutrophilia. He was started on vancomycin and Ancef. The patient is to be NPO for washout in the morning. Review of Systems Review of Systems: 12 point review of systems was assessed and was negative except as noted in the HPI [facility] Past Medical History Medical History AAA (abdominal aortic aneurysm) BPH (benign prostatic hyperplasia) CKD (chronic kidney disease), stage III Hy kid NOS w cr kid I-IV Hypertension Hypothyroidism Surgical History Surgical History History of appendectomy History of cholecystectomy History of right inguinal hernia repair with 6cm Parietex hernia mesh system 04/27/2019 07/16/2020 Repair recurrent right inguinal hernia with 8 cm Parietex hernia mesh system History of tonsillectomy Hx of arthroscopy of left knee Hx of arthroscopy of right knee S/P skin cancer resection 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 Social History Social History Smoking packs per day: 1 Smoking cigarettes per day: 20.0 Years smoked: 20 Smoking pack-years: 20.00 Smoking status: Former smoker Tobacco type: cigarettes Second hand tobacco smoke exposure: No Smoking end date: 03/08/05 Additional smoking assessment comments: STATES 3/4-1PK/DAY/25YRS, QUIT 2004 Alcohol intake: never Substance use: never Substance use type: does not use Gender identity (if verbalized by the patient): Male Spiritual care concerns: No Meds Home Medications and Allergies Home Medications Medication Instructions Recorded Confirmed Type acetaminophen 500 mg tablet 500 mg PO Q6H PRN Pain 07/03/20 11/06/21 History (Tylenol Extra Strength) finasteride 5 mg tablet 5 mg PO QAM 07/03/20 11/06/21 History levothyroxine 100 mcg tablet 100 mcg PO DAILY #90 tabs 04/16/21 11/06/21 Rx triamterene 37.5 1 tablet PO QAM #90 tabs 08/26/21 11/06/21 Rx mg-hydrochlorothiazide 25 mg tablet Allergies Allergy/AdvReac Type Severity Reaction Status Date / Time NSAIDS (Non-Steroidal AdvReac Severe AVOIDANCE Verified 11/05/21 23:33 Anti-Inflamma RELATED TO RENAL DISEASE levofloxacin [From Levaquin] AdvReac Mild Itching Verified 11/05/21 23:33 Vital Signs Vital Signs - 24 hr 11/05/21 23:26 11/05/21 23:28 11/05/21 23:29 Temperature 97.9 F Pulse Rate 107 H 106 H 105 H Respiratory Rate 25 H 19 22 H Blood Pressure 118/69 125/77 Pulse Oximetry 96 95 95 Oxygen Delivery Room Air 11/05/21 23:30 11/05/21 23:31 11/05/21 23:32 Temperature Pulse Rate 105 H 110 H 108 H Respiratory Rate 22 H 29 H 25 H Blood Pressure 118/69 Pulse Oximetry 94 95 94 Oxygen Delivery 11/05/21 23:45 11/05/21 23:46 11/06/21 00:00 Temperature Pulse Rate 91 91 85 Respiratory Rate 24 H 20 22 H Blood Pressure 111/63 Pulse Oximetry 93 94 93 Oxygen Delivery 11/06/21 00:01 11/06/21 00:15 11/06/21 00:16 Temperature Pulse Rate 87 82 83 Respiratory Rate 21 H 18 31 H Blood Pressure 113/62 119/63 Pulse Oximetry
[2021-11-06] MEDS: ceFAZolin 2 GM/D5W 50 ML 2 GM/50 ML BAG IVPB (04:43)
--- NOTE | 2021-11-06 05:47 | ADMGEN ---
This patient, Matteo Holman, was admitted to [facility] Surg Room 324-02. Patient/family oriented to hospital policies and general routines including ID bracelet, bed and alarms, visiting hours, pain management, procedures, bathroom and other care routines, personal items, smoking policy, room service/diet, and visiting hours. Information on how to activate the Rapid Response Team has been discussed. Patient/Family are encouraged to report perceived risks to care and to ask questions if they do not understand what they are told or what they should do.
[2021-11-06 08:36] LABS: Basophils Percent Auto 0.2 % (0.2-1.2); Eosinophils Percent Auto 0.1 % (0-4.4); Hematocrit 35.2 % (42.0-52.0); Hemoglobin 11.9 g/dL (14.0-18.0); Immature Granulocyte Percent A 0.5 % (0-0.5); Lymphocytes Absolute Auto 0.64 K/mm3 (0.9-3.2); Lymphocytes Percent Auto 3.4 % (18.3-44.2); Mean Corpuscular HGB Conc 33.8 g/dl (32-36); Mean Corpuscular Hemoglobin 34.3 pg (26-34); Mean Corpuscular Volume 101.4 fl (80-100); Mean Platelet Volume 9.2 fl (7.4-10.4); Monocytes Absolute Auto 1.1 K/mm3 (0.1-0.6); Monocytes Percent Auto 5.8 % (2.6-8.5); Neutrophils Absolute Auto 16.8 K/mm3 (1.3-6.7); Platelet Count Result 219 k/mm3 (150-375); Red Blood Count 3.47 M/mm3 (4.6-6.20); White Blood Count 18.6 K/mm3 (4.5-10.0)
[2021-11-06] MEDS: FINASTERIDE 5 MG TABLET PO (08:52)
[2021-11-06] MEDS: LEVOTHYROXINE SODIUM 100 MCG TABLET PO (08:52)
[2021-11-06] MEDS: SODIUM CHLORIDE 0.9% IV 1,000 ML 70 ML IV CONT (08:57)
[2021-11-06 09:15] LABS: Alanine Aminotransferase 11 U/L (6-50); Albumin Level 3.2 g/dL (3.5-5.1); Alkaline Phosphatase 82 U/L (38-126); Anion Gap 4 mmol/L (8-16); Aspartate Amino Transferase 35 U/L (17-59); Bilirubin,Total 0.7 mg/dL (0.2-1.3); Blood Urea Nitrogen 32 mg/dL (9-20); CRP 7.1 mg/dL (<1.0); Calcium 8.2 mg/dL (8.4-10.2); Carbon Dioxide 23 mmol/L (22-30); Chloride 101 mmol/L (98-107); Creatine Kinase 661 U/L (55-170); Estimated CRCL calculation 26 ml/min; Estimated Glomerular Filt Rate 30; Glucose 105 mg/dL (65-110); Potassium 3.7 mmol/L (3.4-5.0); Sodium 128 mmol/L (137-145)
--- NOTE | 2021-11-06 09:37 | WPDANESEPPF ---
Anes - Initial Pre Proc Eval Procedure: Operation Date: 11/07/21 09:30 Proposed Procedures p Arthroscopic Washout Right Knee - Cuco Baires MD Date/Time: 11/06/21 09:37 Surgeon: Dilma Moore DO Pre Op Diagnosis: Septic Knee Patient Data Age: 81 Gender: M Height: 1.83 m Weight: 73.3 kg Last Vital Signs Temp 36.7 C 11/06/21 06:00 Pulse 84 11/06/21 06:00 Resp 18 11/06/21 06:00 BP 149/76 H 11/06/21 06:00 Pulse Ox 96 11/06/21 06:00 O2 Del Method Nasal Cannula 11/06/21 04:30 O2 Flow Rate 2 11/06/21 04:30 Allergies Allergy/AdvReac Type Severity Reaction Status Date / Time NSAIDS (Non-Steroidal AdvReac Severe AVOIDANCE Verified 11/05/21 23:33 Anti-Inflamma RELATED TO RENAL DISEASE levofloxacin [From Levaquin] AdvReac Mild Itching Verified 11/05/21 23:33 Home Medications Medication Instructions Recorded Confirmed Type acetaminophen 500 mg tablet 500 mg PO Q6H PRN Pain 07/03/20 11/06/21 History (Tylenol Extra Strength) finasteride 5 mg tablet 5 mg PO QAM 07/03/20 11/06/21 History levothyroxine 100 mcg tablet 100 mcg PO DAILY #90 tabs 04/16/21 11/06/21 Rx triamterene 37.5 1 tablet PO QAM #90 tabs 08/26/21 11/06/21 Rx mg-hydrochlorothiazide 25 mg tablet Laboratory Tests 11/05/21 11/05/21 11/05/21 23:43 23:43 23:43 WBC 16.8 K/mm3 H K/mm3 (4.5-10.0) RBC 3.90 M/mm3 L M/mm3 (4.6-6.20) Hgb 13.3 g/dL L g/dL (14.0-18.0) Hct 38.2 % L % (42.0-52.0) MCV 97.9 fl fl (80-100) MCH 34.1 pg H pg (26-34) MCHC 34.8 g/dl g/dl (32-36) RDW 12.9 % % (11.5-14.5) Plt Count 242 k/mm3 k/mm3 (150-375) MPV 9.0 fl fl (7.4-10.4) Immature Gran % (Auto) 0.4 % % (0-0.5) Neut % (Auto) 91.6 % H % (45.5-73.1) Lymph % (Auto) 2.6 % L % (18.3-44.2) [place] % (Auto) 5.1 % % (2.6-8.5) Eos % (Auto) 0.1 % % (0-4.4) Baso % (Auto) 0.2 % % (0.2-1.2) Lymph # (Auto) 0.43 K/mm3 L K/mm3 (0.9-3.2) [place] # (Auto) 0.9 K/mm3 H K/mm3 (0.1-0.6) Eos # (Auto) 0.0 K/mm3 K/mm3 (0-0.3) Baso # (Auto) 0.0 K/mm3 K/mm3 (0.0-0.1) Abs Immat Gran (auto) 0.06 K/mm3 H K/mm3 (0.00-0.031) Absolute Neuts (auto) 15.5 K/mm3 H K/mm3 (1.3-6.7) Absolute Nucleated RBC 0.0 K/mm3 K/mm3 (0.0-0.012) Nucleated RBC % 0.0 % % (0.0-0.2) ESR 24 mm/hr H mm/hr (0-20) PT 14.5 Seconds Seconds (11.1-14.7) INR 1.2 APTT 30.0 SECONDS SECONDS (22.3-36.8) Sodium 131 mmol/L L mmol/L (137-145) Potassium 3.5 mmol/L mmol/L (3.4-5.0) Chloride 95 mmol/L L mmol/L (98-107) Carbon Dioxide 21 mmol/L L mmol/L (22-30) Anion Gap 15 mmol/L mmol/L (8-16) BUN 39 mg/dL H mg/dL (9-20) Creatinine 2.40 mg/dL H mg/dL (0.7-1.3) Estim Creat Clear Calc Not Reportable Estimated GFR 26 L (59 - ) Glucose 129 mg/dL H mg/dL (65-110) Uric Acid Calcium 9.6 mg/dL mg/dL (8.4-10.2) Total Bilirubin AST ALT Alkaline Phosphatase Total Creatine Kinase C-Reactive Protein 6.4 mg/dL H mg/dL (<1.0) Total Protein Albumin Synovial Source Synovial Color Synovial Appearance Synovial RBC Synovial Nuc Cells Synovial Neutrophils Synovial Lymphocytes Synovial Monocytes Synovial Crystals Synovial Glucose Synovial Total Protein 11/05/21 11/06/21 11/06/21 23:43 02:25 02:25 WBC RBC Hgb Hct MCV MCH MCHC RD
--- NOTE | 2021-11-06 11:09 | PM.IMPN ---
Progress Note: A&P Assessment and Plan (1) Septic arthritis of knee, right: Code(s): M00.9 - Pyogenic arthritis, unspecified Status: Acute Assessment and Plan: Patient presents with right knee pain. No trauma. Concern for septic arthritis so a arthrocentesis was performed which showed cloudy brown fluid with 204K white cells with majority neutrophils. No crystals. He started on vancomycin and Ancef. Given the possible seeding from the bladder, will broaden coverage to include Pseudomonas. Appreciate orthopedic surgery input. Follow-up on blood cultures and synovial fluid cultures. Narrow antibiotics when able. Plan for surgical clean out. Patient and family were updated and all questions were answered. (2) CKD (chronic kidney disease), stage III: Code(s): N18.3 - Chronic kidney disease, stage 3 (moderate) Status: Acute Assessment and Plan: Baseline creatinine runs 1.5-2.0 range over the past 3 years. Creatinine 2.4 admission. Could be dehydration or ATN. Repeat creatinine today is improved to 2.1. Etiology of his CKD is unclear. Recent Abdominal CT does show enlarged prostate and bilateral renal cysts. Continue IV fluids. Continue to monitor. Will check studies for pulmonary renal syndrome. (3) BPH (benign prostatic hyperplasia): Code(s): N40.0 - Benign prostatic hyperplasia without lower urinary tract symptoms Status: Acute Assessment and Plan: There was mention of urinary retention noted but not sure how much was in bladder prior to Barber placed. Consider consulting urology if still difficulty voiding postoperatively. Continue finasteride. (4) Hypertension: Code(s): I10 - Essential (primary) hypertension Status: Acute Assessment and Plan: Patient's blood pressure was reviewed on 11/06 Blood pressure remains well controlled. Home medications held. Will continue to follow (5) Hyponatremia: Code(s): E87.1 - Hypo-osmolality and hyponatremia Status: Acute Assessment and Plan: Patient with mild chronic intermittent hyponatremia. Sodium 131 on admission possibly related to his Maxide. Sodium is dropped to 128 today. Continue IV fluids. Continue to hold Maxide. (6) Interstitial lung disease: Code(s): J84.9 - Interstitial pulmonary disease, unspecified Status: Acute Assessment and Plan: CT of the abdomen 1 month ago showed severe chronic interstitial lung disease. This could explain his reasoning but to for decreasing his activity level. He also has CKD. Consider pulmonary renal syndromes. Will check CRISTIANO, etc.. He does have O2 requirement this morning. May need home O2 evaluation prior to discharge. Wean oxygen as tolerated. (7) Hypothyroidism: Code(s): E03.9 - Hypothyroidism, unspecified Status: Acute Assessment and Plan: Resume levothyroxine. Check TSH. (8) AAA (abdominal aortic aneurysm): Code(s): I71.4 - Abdominal aortic aneurysm, without rupture Status: Acute Assessment and Plan: CT last month showing suprarenal 3.2 cm AAA and infrarenal 3.2 cm AAA. Will defer to his primary care doctor for further management. Plan DVT prophylaxis: SCDs GI prophylaxis not indicated Code status: full code Subjective Date/time seen: 11/06/21 11:09 Interval history: 81yo male with HTN, ILD and CKD 3 here for right knee pain. Pain feeling better. He denies any recent fevers, chills, night sweats, chest pain, shortness of breath or cough. Denies dysuria but does have intermittent hematuria that he is being followed by urology for. He has no history of coronary disease or diabetes. Used to walk 2-3 miles a day but has cut this back to see was having dizzy spells. Currently he mows the lawn with a push mower and carries groceries in from his driveway without complaints of chest pain or shortness of breath. He had a stress test many years a
[2021-11-06 12:07] LABS: Eosinophil Urine None Seen % (None Seen)
[2021-11-06 12:22] LABS: Creatinine Urine 91.2 mg/dL
[2021-11-06 12:25] LABS: Sodium Urine Random 58 meq/L
--- NOTE | 2021-11-06 13:02 | PM.CNOR ---
Assessment and Plan Assessment and plan (1) Septic arthritis of knee, right: Code(s): M00.9 - Pyogenic arthritis, unspecified Status: Acute Plan 81-year-old male with multiple medical issues. He has presumed sepsis right knee. Plan on arthroscopic washout tomorrow pending medical clearance. Discussed fully with the patient and his daughter today. Thank you for consultation. History of Present Illness HPI Consult date: 11/06/21 Consult reason: joint pain Chief complaint: Septic Knee Narrative: This document created with [id number] technology and is subject to single fold machine operator irregularities. 81-year-old male who developed a painful right knee yesterday. He was aspirated in the emergency room. White count was 204,000+ with no crystals seen. History of recent UTI. No issues like this in the past. No other painful or swollen joints. Review of Systems Constitutional: Constitutional: Reports no additional constitutional complaints, Denies excessive sweating and Denies fatigue PMFSH Past Medical History Medical History AAA (abdominal aortic aneurysm) BPH (benign prostatic hyperplasia) CKD (chronic kidney disease), stage III Hy kid NOS w cr kid I-IV Hypertension Hypothyroidism Surgical History Surgical History History of appendectomy History of cholecystectomy History of right inguinal hernia repair with 6cm Parietex hernia mesh system 04/27/2019 07/16/2020 Repair recurrent right inguinal hernia with 8 cm Parietex hernia mesh system History of tonsillectomy Hx of arthroscopy of left knee Hx of arthroscopy of right knee S/P skin cancer resection 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 Other Unknown family medical history Social History Social History Smoking packs per day: 1 Smoking cigarettes per day: 20.0 Years smoked: 20 Smoking pack-years: 20.00 Smoking status: Former smoker Second hand tobacco smoke exposure: No Additional smoking assessment comments: STATES 3/4-1PK/DAY/25YRS, QUIT 2004 Alcohol intake: never Substance use: never Substance use type: does not use Gender identity (if verbalized by the patient): Male Spiritual care concerns: No Meds Home Medications and Allergies Home Medications Medication Instructions Recorded Confirmed Type acetaminophen 500 mg tablet 500 mg PO Q6H PRN Pain 07/03/20 11/06/21 History (Tylenol Extra Strength) finasteride 5 mg tablet 5 mg PO QAM 07/03/20 11/06/21 History levothyroxine 100 mcg tablet 100 mcg PO DAILY #90 tabs 04/16/21 11/06/21 Rx triamterene 37.5 1 tablet PO QAM #90 tabs 08/26/21 11/06/21 Rx mg-hydrochlorothiazide 25 mg tablet Allergies Allergy/AdvReac Type Severity Reaction Status Date / Time NSAIDS (Non-Steroidal AdvReac Severe AVOIDANCE Verified 11/05/21 23:33 Anti-Inflamma RELATED TO RENAL DISEASE levofloxacin [From Levaquin] AdvReac Mild Itching Verified 11/05/21 23:33 Vital Signs Vital Signs - 24 hr 11/05/21 23:26 11/05/21 23:28 11/05/21 23:29 Temperature 97.9 F Pulse Rate 107 H 106 H 105 H Respiratory Rate 25 H 19 22 H Blood Pressure 118/69 125/77 Pulse Oximetry 96 95 95 Oxygen Delivery Room Air Oxygen Flow Rate 11/05/21 23:30 11/05/21 23:31 11/05/21 23:32 Temperature Pulse Rate 105 H 110 H 108 H Respiratory Rate 22 H 29 H 25 H Blood Pressure 118/69 Pulse Oximetry 94 95 94 Oxygen Delivery Oxygen Flow Rate 11/05/21 23:45 11/05/21 23:46 11/06/21 00:00 Temperature Pulse Rate 91 91 85 Respiratory Rate 24 H 20 22 H Blood Pressure 111/63 Pulse Oximetry 93 94 93 Oxygen Delivery Oxygen Flow Rate 11/06/21 00:01 11/06/21 00:15 11/06/21 00:16
[2021-11-07] VITALS (13 sets, daily range): BP systolic 114–148; BP diastolic 63–84; PULSE 65–102; RESP 10–20; TEMP 35.9–36.5; O2SAT 94–100
[2021-11-07] MEDS: SODIUM CHLORIDE 0.9% IV 1,000 ML 70 ML IV CONT ×2 (01:20→15:31)
[2021-11-07] MEDS: LEVOTHYROXINE SODIUM 100 MCG TABLET PO (06:13)
[2021-11-07 06:44] LABS: Basophils Percent Auto 0.3 % (0.2-1.2); Eosinophils Absolute Auto 0.1 K/mm3 (0-0.3); Eosinophils Percent Auto 1.1 % (0-4.4); Hematocrit 37.5 % (42.0-52.0); Hemoglobin 12.4 g/dL (14.0-18.0); Immature Granulocyte Absolute 0.04 K/mm3 (0.00-0.031); Immature Granulocyte Percent A 0.4 % (0-0.5); Lymphocytes Absolute Auto 0.89 K/mm3 (0.9-3.2); Lymphocytes Percent Auto 7.8 % (18.3-44.2); Mean Corpuscular HGB Conc 33.1 g/dl (32-36); Mean Corpuscular Hemoglobin 34.3 pg (26-34); Mean Corpuscular Volume 103.6 fl (80-100); Mean Platelet Volume 9.1 fl (7.4-10.4); Monocytes Absolute Auto 0.7 K/mm3 (0.1-0.6); Monocytes Percent Auto 6.3 % (2.6-8.5); Neutrophils Absolute Auto 9.6 K/mm3 (1.3-6.7); Neutrophils Percent Auto 84.1 % (45.5-73.1); Platelet Count Result 202 k/mm3 (150-375); Red Blood Count 3.62 M/mm3 (4.6-6.20); Red Cell Distribution Width 13.1 % (11.5-14.5); White Blood Count 11.4 K/mm3 (4.5-10.0)
[2021-11-07 07:05] LABS: Albumin Level 3.2 g/dL (3.5-5.1); Anion Gap 8 mmol/L (8-16); Blood Urea Nitrogen 30 mg/dL (9-20); Calcium 9.2 mg/dL (8.4-10.2); Carbon Dioxide 24 mmol/L (22-30); Chloride 103 mmol/L (98-107); Creatine Kinase 257 U/L (55-170); Estimated CRCL calculation 30 ml/min; Estimated Glomerular Filt Rate 36; Glucose 112 mg/dL (65-110); Phosphorus 2.1 mg/dL (2.5-4.5); Potassium 3.7 mmol/L (3.4-5.0); Sodium 135 mmol/L (137-145)
[2021-11-07 08:03] LABS: Complement C3 65 mg/dL (88-165)
[2021-11-07 08:07] LABS: Folic Acid 3.1 ng/mL (2.76->20)
[2021-11-07 08:15] LABS: Hepatitis B Surface Antigen Negative (Negative)
[2021-11-07 08:20] LABS: Hepatitis B Core IgM Result Negative (Negative)
[2021-11-07 08:31] LABS: Thyroid Stimulating Hormone Reflex 0.662 uIU/mL (0.465-4.68)
[2021-11-07 08:32] LABS: Hepatitis B Surface Anti Res Negative; Hepatitis C Virus Antibody Negative (Negative)
[2021-11-07] MEDS: LACTATED RINGERS 1,000 ML 30 ML IV CONT (09:47)
--- NOTE | 2021-11-07 10:17 | WPDHPUPDATE1 ---
History and Physical Update Update Date/Time: 11/07/21 10:17 History and Physical has been reviewed, including an updated exam of the patient. There are NO changes in the patient's condition. Risks, benefits, and alternatives have been discussed and questions answered. Patient agrees to proceed with procedure.
[2021-11-07] MEDS: LIDOCAINE HCL 1% PF 30 ML VIAL 20 ML INFILTRATE (11:00)
--- NOTE | 2021-11-07 12:04 | P.OP_ITS ---
Procedure Note - Detailed Date of Procedure 11/07/21 Pre-op Diagnosis Septic Right Knee Post-op Diagnosis Same Procedure Performed Right knee arthroscopic washout with extensive synovectomy Surgeon Cuco Baires MD Anesthesia General Description of Procedure The patient was identified and proper site identified and he was taken to the operating room, transferred to the OR table placing him supine taking care to pad the torso and extremities. After general anesthetic induction and intubation, a nonsterile tourniquet was placed high on the right thigh. The right lower extremity was positioned, prepped and draped in usual sterile fashion. 10 cc of 1% lidocaine was injected into the subcutaneous tissue in the area of the portals at start of the procedure, and an additional 10 at the end. The portals were established and the arthroscopy was carried out. There was quite a bit of purulent fluid which was evacuated. The knee was flushed with 6 liters arthroscopic fluid. The tourniquet was inflated to 300 millimeters of mercury remaining up for 22 minutes. There was extensive synovitis noted in the pouch as well as in the gutters. These areas were extensively debrided with the shaver. Grade 3 degenerative changes noted throughout the joint with some grade 4 changes noted anteriorly and medially. Cruciate ligaments were in continuity and the menisci were intact but did have apical fraying. The posteromedial and posterolateral aspects of the joint were inspected and no significant abn ormalities appreciated there. ArthroCare Wand was used to cauterize the obvious sources of bleeding. Knee was flushed with a copious amount of arthroscopic fluid and equipment was removed. Portals were closed with three O nylon suture, the tourniquet was released, and a sterile dressing was applied. He tolerated the procedure well, was awakened, extubated and taken to recovery area in stable condition. There were no known intraoperative complications. Estimated blood loss was negligible; he received perioperative antibiotics. Estimated Blood Loss 10 Tourniquet Time 22 Drains No Packing No Pathology None sent Complications No immediate complications Condition Stable Disposition PACU
--- NOTE | 2021-11-07 14:07 | PM.IMPN ---
Progress Note: A&P Assessment and Plan (1) Septic arthritis of knee, right: Code(s): M00.9 - Pyogenic arthritis, unspecified Status: Acute Assessment and Plan: Patient presents with right knee pain. No trauma. Concern for septic arthritis so an arthrocentesis was performed which showed cloudy brown fluid with 204K white cells with majority neutrophils. No crystals. He started on vancomycin and Ancef. Given the possible seeding from the bladder, we broaden coverage to include Pseudomonas. Gram stain negative. WBC better. He went for knee wash out today and appears to have toelrated the procedure well. Appreciate orthopedic surgery input. BCx NGTD. Synovial fluid cultures NGTD. Narrow antibiotics when able. (2) CKD (chronic kidney disease), stage III: Code(s): N18.3 - Chronic kidney disease, stage 3 (moderate) Status: Acute Assessment and Plan: Baseline creatinine runs 1.5-2.0 range over the past 3 years. Creatinine 2.4 admission felt to have LARRY. Could be dehydration or ATN. Repeat creatinine has improved to 1.8. Etiology of his CKD is unclear. Recent Abdominal CT does show enlarged prostate and bilateral renal cysts. Continue to monitor. Will check studies for pulmonary renal syndrome. (3) BPH (benign prostatic hyperplasia): Code(s): N40.0 - Benign prostatic hyperplasia without lower urinary tract symptoms Status: Acute Assessment and Plan: There was mention of urinary retention noted but not sure how much was in bladder prior to Barber placed. Consider consulting urology if still difficulty voiding postoperatively. Continue finasteride. (4) Hypertension: Code(s): I10 - Essential (primary) hypertension Status: Acute Assessment and Plan: Patient's blood pressure was reviewed on 11/07 Blood pressure remains well controlled. Home medications held. Will continue to follow (5) Hyponatremia: Code(s): E87.1 - Hypo-osmolality and hyponatremia Status: Acute Assessment and Plan: Patient with mild chronic intermittent hyponatremia. Sodium 131 on admission possibly related to his Maxide. Sodium dropped to 128 but better today. Continue to hold Maxide. (6) Interstitial lung disease: Code(s): J84.9 - Interstitial pulmonary disease, unspecified Status: Acute Assessment and Plan: CT of the abdomen 1 month ago showed severe chronic interstitial lung disease. This could explain his reason for decreasing his activity level. He also has CKD. Consider pulmonary renal syndromes. Will check CRISTIANO, etc.. He may have cirrhosis as well. We added Hepatitis studies on as well. He did have O2 requirement but now weaned to room air. Follow (7) Hypothyroidism: Code(s): E03.9 - Hypothyroidism, unspecified Status: Acute Assessment and Plan: TSH normal. Continue levothyroxine. (8) AAA (abdominal aortic aneurysm): Code(s): I71.4 - Abdominal aortic aneurysm, without rupture Status: Acute Assessment and Plan: CT last month showing suprarenal 3.2 cm AAA and infrarenal 3.2 cm AAA. Will defer to his primary care doctor for further management. (9) B12 deficiency: Code(s): E53.8 - Deficiency of other specified B group vitamins Status: Acute Assessment and Plan: B12 level low at 228. Replace. Plan DVT prophylaxis: SCDs Code status: full code Subjective Date/time seen: 11/07/21 14:07 Interval history: 81yo male with HTN, ILD and CKD 3 here for right knee pain. Patietn back from surgery. He feels better. Denies knee pain. No CP or SOB. Eating well without n/v. Exam Narrative: AF 97.6 148/84 77 16 99% Gen - NARD Chest - bibasilar dry inspiratory crackles. nml RR CV - RRR S1/S2 Abd - Soft, NT/ND, Positive BS - Barber secured draining dark yellow urine Ext - No pedal edema. Right knee is ALEXI wrapped Psych - Nml mood and affect
[2021-11-07] MEDS: ACETAMINOPHEN 500 MG TABLET PO (15:30)
[2021-11-07] MEDS: FINASTERIDE 5 MG TABLET PO (15:31)
[2021-11-07] MEDS: POTASSIUM/PHOSPHORUS/SODIUM 1.5 GM PACKET 1 PACKET PO (15:31)
[2021-11-07] MEDS: HEPARIN SODIUM 5,000 UNITS/ML VIAL 5000 UNITS SUB-Q (20:56)
[2021-11-07] MEDS: CYANOCOBALAMIN INJ 1,000 MCG/ML VIAL 1000 MCG IM (20:57)
[2021-11-07] MEDS: SENNA/DOCUSATE SODIUM TABLET 2 TAB PO (20:58)
[2021-11-08 06:16] VITALS: BP 141/81; PULSE 69; RESP 17; TEMP 36.5; O2SAT 96
[2021-11-08] MEDS: LEVOTHYROXINE SODIUM 100 MCG TABLET PO (06:21)
--- NOTE | 2021-11-08 07:03 | PC.NURSE ---
The tejada catheter placed on day of admission was placed due to urinary retention.
[2021-11-08] MEDS: HEPARIN SODIUM 5,000 UNITS/ML VIAL 5000 UNITS SUB-Q ×2 (08:27→20:09)
[2021-11-08] MEDS: SENNA/DOCUSATE SODIUM TABLET 2 TAB PO ×2 (08:28→15:19)
[2021-11-08] MEDS: CYANOCOBALAMIN 1,000 MCG TABLET 1000 MCG PO (08:28)
[2021-11-08] MEDS: FINASTERIDE 5 MG TABLET PO (08:28)
[2021-11-08] MEDS: polyethylene glycoL 3350 17 GM POWD.PACK PO (08:28)
--- NOTE | 2021-11-08 09:40 | PM.PNORT ---
Progress Note: A&P Assessment and Plan (1) Septic arthritis of knee, right: Code(s): M00.9 - Pyogenic arthritis, unspecified Status: Acute Plan 81-year-old male with presumed sepsis right knee. Given recent antibiotics, cultures may not grow anything. Will wait till the three day culture results to decide on what antimicrobial to use. Would anticipate being on likely oral antibiotics for about four weeks upon discharge. Center consult for Dr. Oro for hematuria. Subjective Subjective Date/Time Seen: 11/08/21 09:40 Post Op day: 1 Principal diagnosis: Dx: S/p arthroscopic washout right knee Interval history: Doing well this morning. No issues overnight. Very little discomfort in the right knee. Exam Const: General: cooperative, alert and awake Orientation/consciousness: patient oriented x3 HENMT: Head: normal to inspection Ears: hearing grossly normal bilaterally Resp: Effort & Inspection: able to speak in complete sentences GI: Inspection: non-distended GI Palp: No abdominal tenderness : Other: Gross hematuria in Barber bag this morning Neuro: General: patient oriented x3 Extrem: Other: Exam of right knee shows very little swelling. No drainage at the portal incisions. Drain site dry. No significant drainage and drain which was removed. Neurovascular status intact right lower extremity. Ambulating well with assistance using a walker. Psych: Mental Status: mental status grossly normal Objective Data Vital Signs Vital Signs: Vital Signs - 24 hr 11/07/21 09:44 11/07/21 11:47 11/07/21 12:00 Temperature 97.6 F 97.6 F Pulse Rate 71 78 72 Respiratory Rate 20 14 10 L Blood Pressure 123/82 132/71 143/77 H Pulse Oximetry 100 100 100 Oxygen Delivery Nasal Cannula Simple Face Mask Simple Face Mask Oxygen Flow Rate 2 6 6 11/07/21 12:15 11/07/21 12:30 11/07/21 12:45 Temperature Pulse Rate 75 72 77 Respiratory Rate 16 12 16 Blood Pressure 143/75 H 144/78 H 148/84 H Pulse Oximetry 99 98 99 Oxygen Delivery Room Air Room Air Room Air Oxygen Flow Rate 11/07/21 13:10 11/07/21 13:25 11/07/21 13:55 Temperature 96.6 F L 96.7 F L 96.9 F L Pulse Rate 86 81 82 Respiratory Rate 16 16 16 Blood Pressure 148/79 H 138/75 123/65 Pulse Oximetry 94 97 99 Oxygen Delivery Oxygen Flow Rate 11/07/21 14:55 11/07/21 22:25 11/07/21 20:00 Temperature 97.4 F L 97.7 F Pulse Rate 84 102 H 102 H Respiratory Rate 16 18 18 Blood Pressure 114/63 132/74 Pulse Oximetry 97 95 95 Oxygen Delivery Room Air Oxygen Flow Rate 11/08/21 06:16 Temperature 97.7 F Pulse Rate 69 Respiratory Rate 17 Blood Pressure 141/81 H Pulse Oximetry 96 Oxygen Delivery Oxygen Flow Rate Intake/Output Intake/Output: Intake & Output 11/05/21 11/06/21 11/07/21 11/08/21 23:59 23:59 23:59 23:59 Intake Total 3960 / 3960 2090 / 2090 470 / 470 Output Total 850 / 850 740 / 740 500 / 500 Balance 3110 / 3110 1350 / 1350 -30 / -30 Meds/Results Medications: Active Medications Generic Name Dose Route Start Last Admin Trade Name Freq PRN Reason Stop Dose Admin Acetaminophen 650 mg 11/07/21 16:40 Acetaminophen 325 Mg Tablet PO Q6H PRN Pain Rated 1-3 Hydrocodone Bitart/Acetaminophen 1 tab 11/07/21 16:40 Hydrocodone/Acetaminophen (*Crx) 5-325 Mg Tablet PO Q3H PRN Pain Rated 4-6 Hydrocodone Bitart/Acetaminophen 2 tab 11/07/21 16:40 Hydrocodone/Acetaminophen (*Crx) 5-325 Mg Tablet PO Q6H PRN Pain Rated 7-10 Cyanocobalamin 1,000 mcg 11/07/21 18:25 11/07/21 20:57 Cyanocobalamin Inj 1,000 Mcg/Ml Vial IM 1,000 mcg WEEKLY DENNIS Administration Cyanocobalamin 1,000 mcg 11/08/21 09:00 11/08/21 08:28 Cyanocobalamin 1,000 Mcg Tablet PO 1,000 mcg QAM DENNIS Administration Finasteride 5 mg 11/06/21 09:00 11/08/21 08:28 Finasteride 5 Mg Tablet PO 5 mg QAM DENNIS Administration Heparin Sodium (Porcine) 5,000 units
--- NOTE | 2021-11-08 10:21 | P.PNAN_ITS ---
Anes - Prog Note Post-Op Date/Time: 11/08/21 10:21 Vital Signs: Last Vital Signs Temp 36.5 C 11/08/21 06:16 Pulse 69 11/08/21 06:16 Resp 17 11/08/21 06:16 BP 141/81 H 11/08/21 06:16 Pulse Ox 96 11/08/21 06:16 O2 Del Method Room Air 11/08/21 08:00 O2 Flow Rate 6 11/07/21 12:00 Pain Score (VAS): 0 I/O: Intake & Output 11/07/21 11/08/21 11/08/21 23:59 07:59 15:59 Intake Total 940 250 270 Output Total 240 500 Balance 700 -250 270 11/08/21 11/08/21 06:17 06:18 WBC Pending RBC Pending Hgb Pending Hct Pending MCV Pending MCH Pending MCHC Pending RDW Pending Plt Count Pending MPV Pending Immature Gran % (Auto) Pending Neut % (Auto) Pending Lymph % (Auto) Pending [place] % (Auto) Pending Eos % (Auto) Pending Baso % (Auto) Pending Lymph # (Auto) Pending [place] # (Auto) Pending Eos # (Auto) Pending Baso # (Auto) Pending Abs Immat Gran (auto) Pending Absolute Neuts (auto) Pending Absolute Nucleated RBC Pending Nucleated RBC % Pending Sodium Pending Potassium Pending Chloride Pending Carbon Dioxide Pending Anion Gap Pending BUN Pending Creatinine Pending Estim Creat Clear Calc Pending Estimated GFR Pending Glucose Pending Calcium Pending Phosphorus Pending Magnesium Pending Albumin Pending Microbiology 11/06/21 11:03 Clean Catch Midstream Urine Culture - Final 11/06/21 02:25 Synovial Fluid Right Knee Anaerobic Culture - Preliminary 11/06/21 02:25 Synovial Fluid Right Knee Aerobic Culture - Preliminary 11/07/21 02:26 Synovial Fluid Right Knee Gram Stain - Final Patient Feedback: Patient satisfied with anesthetic care.
[2021-11-08 10:25] VITALS: BP 116/62; PULSE 71; RESP 18; TEMP 36.9; O2SAT 96
[2021-11-08 10:34] LABS: Basophils Percent Auto 0.2 % (0.2-1.2); Eosinophils Percent Auto 0.1 % (0-4.4); Hematocrit 36.8 % (42.0-52.0); Hemoglobin 12.2 g/dL (14.0-18.0); Immature Granulocyte Absolute 0.05 K/mm3 (0.00-0.031); Immature Granulocyte Percent A 0.5 % (0-0.5); Lymphocytes Percent Auto 8.2 % (18.3-44.2); Mean Corpuscular HGB Conc 33.2 g/dl (32-36); Mean Corpuscular Hemoglobin 34.2 pg (26-34); Mean Corpuscular Volume 103.1 fl (80-100); Monocytes Absolute Auto 0.7 K/mm3 (0.1-0.6); Monocytes Percent Auto 6.2 % (2.6-8.5); Neutrophils Absolute Auto 9.4 K/mm3 (1.3-6.7); Neutrophils Percent Auto 84.8 % (45.5-73.1); Platelet Count Result 219 k/mm3 (150-375); Red Blood Count 3.57 M/mm3 (4.6-6.20); Red Cell Distribution Width 12.9 % (11.5-14.5)
--- NOTE | 2021-11-08 10:37 | PC.NURSE ---
Dr. Gonzalez called and spoke with me regarding the urology consult that was placed for pt. Dr. Gonzalez stated that pt is receiving antibiotics and has a tejada catheter in place which are appropriate for pt's hematuria. Dr. Gonzalez also stated that pt should remain well hydrated and any other interventions are only appropriate on an out-patient basis. Therefore, we should continue current interventions and pt should follow-up out patient unless something else changes in the meantime.
[2021-11-08 11:02] LABS: Albumin Level 2.8 g/dL (3.5-5.1); Anion Gap 9 mmol/L (8-16); Blood Urea Nitrogen 26 mg/dL (9-20); Calcium 9.2 mg/dL (8.4-10.2); Carbon Dioxide 23 mmol/L (22-30); Chloride 103 mmol/L (98-107); Estimated CRCL calculation 33 ml/min; Estimated Glomerular Filt Rate 42; Glucose 85 mg/dL (65-110); Magnesium 1.9 mg/dL (1.6-2.3); Potassium 3.3 mmol/L (3.4-5.0); Sodium 135 mmol/L (137-145)
--- NOTE | 2021-11-08 12:32 | PM.IMPN ---
Progress Note: A&P Assessment and Plan (1) Septic arthritis of knee, right: Code(s): M00.9 - Pyogenic arthritis, unspecified Status: Acute Assessment and Plan: Patient presents with right knee pain. No trauma. Concern for septic arthritis so an arthrocentesis was performed which showed cloudy brown fluid with 204K white cells with majority neutrophils. No crystals. He started on vancomycin and Ancef. Given the possible seeding from the bladder, we broaden coverage to include Pseudomonas coverage. Gram stain negative. WBC better. He went for knee wash out 11/07 and tolerated the procedure well. Appreciate orthopedic surgery input. BCx NGTD. Synovial fluid cultures NGTD. Narrow antibiotics when able. (2) CKD (chronic kidney disease), stage III: Code(s): N18.3 - Chronic kidney disease, stage 3 (moderate) Status: Acute Assessment and Plan: Baseline creatinine runs 1.5-2.0 range over the past 3 years. Creatinine 2.4 on admission felt to have LARRY. Could be dehydration and/or ATN. Repeat creatinine has improved to 1.6. Etiology of his CKD is unclear. Studies for pulmonary renal syndrome pending. Recent Abdominal CT does show enlarged prostate and bilateral renal cysts. Continue to monitor. (3) BPH (benign prostatic hyperplasia): Code(s): N40.0 - Benign prostatic hyperplasia without lower urinary tract symptoms Status: Acute Assessment and Plan: There was mention of urinary retention noted but not sure how much was in bladder prior to Barber placed. Now having hematuria but not uncommon per patient and family. On Heparin SQ but will continue for now. Urology consulted. Continue finasteride. (4) Hypertension: Code(s): I10 - Essential (primary) hypertension Status: Acute Assessment and Plan: Patient's blood pressure was reviewed on 11/08 Blood pressure remains well controlled. Home medications held. Will continue to follow (5) Hyponatremia: Code(s): E87.1 - Hypo-osmolality and hyponatremia Status: Acute Assessment and Plan: Patient with mild chronic intermittent hyponatremia. Sodium 131 on admission possibly related to his Maxide. Sodium dropped to 128 but better today. Continue to hold Maxide. (6) Interstitial lung disease: Code(s): J84.9 - Interstitial pulmonary disease, unspecified Status: Acute Assessment and Plan: CT of the abdomen 1 month ago showed severe chronic interstitial lung disease. This could explain his reason for decreasing his activity level. He also has CKD. Consider pulmonary renal syndromes. Will check CRISTIANO, etc.. He may have cirrhosis as well. Hepatitis studies were negative. He did have O2 requirement but now weaned to room air. Follow (7) Hypothyroidism: Code(s): E03.9 - Hypothyroidism, unspecified Status: Acute Assessment and Plan: TSH normal. Continue levothyroxine. (8) AAA (abdominal aortic aneurysm): Code(s): I71.4 - Abdominal aortic aneurysm, without rupture Status: Acute Assessment and Plan: CT last month showing suprarenal 3.2 cm AAA and infrarenal 3.2 cm AAA. Will defer to his primary care doctor for further management. (9) B12 deficiency: Code(s): E53.8 - Deficiency of other specified B group vitamins Status: Acute Assessment and Plan: B12 level low at 228. Replace. Plan DVT prophylaxis: Heparin Code status: full code Subjective Date/time seen: 11/08/21 12:32 Interval history: 81yo male with HTN, ILD and CKD 3 here for right knee pain. Patient noted to have hematuria in his Barber bag today. Patient states that this is not uncommon for him. Urologist is aware. Spoke with the orthopedic physician who went ahead and ordered a urology consult. Patient denies any chest pain shortness of breath. He is eating well. He denies any nausea vomiting. He denies any pain. He is refu
[2021-11-08 14:25] VITALS: BP 123/64; PULSE 76; RESP 18; TEMP 36.4; O2SAT 97
[2021-11-08] MEDS: POTASSIUM/PHOSPHORUS/SODIUM 1.5 GM PACKET 1 PACKET PO (15:19)
[2021-11-08 20:39] VITALS: O2SAT 95
[2021-11-08 21:36] VITALS: BP 147/79; PULSE 70; RESP 16; TEMP 36.9; O2SAT 97
[2021-11-09 05:46] LABS: Hematocrit 37.4 % (42.0-52.0); Hemoglobin 12.3 g/dL (14.0-18.0); Mean Corpuscular HGB Conc 32.9 g/dl (32-36); Mean Corpuscular Hemoglobin 34.1 pg (26-34); Mean Corpuscular Volume 103.6 fl (80-100); Platelet Count Result 226 k/mm3 (150-375); Red Blood Count 3.61 M/mm3 (4.6-6.20); Red Cell Distribution Width 12.9 % (11.5-14.5)
[2021-11-09 05:56] LABS: Albumin Level 3.1 g/dL (3.5-5.1); Anion Gap 9 mmol/L (8-16); Blood Urea Nitrogen 24 mg/dL (9-20); Calcium 8.6 mg/dL (8.4-10.2); Carbon Dioxide 28 mmol/L (22-30); Chloride 99 mmol/L (98-107); Estimated CRCL calculation 33 ml/min; Estimated Glomerular Filt Rate 42; Glucose 101 mg/dL (65-110); Phosphorus 1.7 mg/dL (2.5-4.5); Potassium 3.8 mmol/L (3.4-5.0); Sodium 136 mmol/L (137-145)
[2021-11-09 06:00] VITALS: BP 149/82; PULSE 80; RESP 18; TEMP 36.8; O2SAT 100
[2021-11-09] MEDS: LEVOTHYROXINE SODIUM 100 MCG TABLET PO (06:33)
[2021-11-09 06:42] LABS: Vancomycin Trough < 5.0 ug/mL (10.0-20.0)
[2021-11-09] MEDS: FINASTERIDE 5 MG TABLET PO (08:17)
[2021-11-09] MEDS: SENNA/DOCUSATE SODIUM TABLET 2 TAB PO (08:17)
[2021-11-09] MEDS: CYANOCOBALAMIN 1,000 MCG TABLET 1000 MCG PO (08:17)
[2021-11-09] MEDS: HEPARIN SODIUM 5,000 UNITS/ML VIAL 5000 UNITS SUB-Q ×2 (08:18→20:40)
--- NOTE | 2021-11-09 08:37 | PM.PNORT ---
Progress Note: A&P Assessment and Plan (1) Septic arthritis of knee, right: Code(s): M00.9 - Pyogenic arthritis, unspecified Status: Acute Plan 81-year-old male with presumed sepsis right knee. Awaiting the three day culture results. If these are negative, will likely send him home on empiric oral antibiotics for an additional month. I will need to see him in two weeks for suture removal. Following. Subjective Subjective Date/Time Seen: 11/09/21 08:37 Post Op day: 2 Principal diagnosis: Dx: Status post right knee arthroscopic washout Interval history: 81-year-old male with presumed sepsis right knee. Up to this point the cultures have not grown anything on the Gram stain had been negative however he was and antibiotics not that long before this incident in with the markedly elevated white count, this is most likely sepsis. He is doing very well. He is having no pain or swelling in the knee. Exam Const: General: cooperative, alert and awake Orientation/consciousness: patient oriented x3 HENMT: Head: normal to inspection Resp: Effort & Inspection: able to speak in complete sentences GI: Inspection: non-distended GI Palp: No abdominal tenderness Neuro: General: patient oriented x3 Extrem: Other: Exam of The right knee shows virtually no swelling. Portal incisions healing nicely. There dry with no erythema nor drainage. Grossly neurovascular status right lower extremity intact. Psych: Mental Status: mental status grossly normal Objective Data Vital Signs Vital Signs: Vital Signs - 24 hr 11/08/21 10:25 11/08/21 12:10 11/08/21 14:25 Temperature 98.4 F 97.6 F Pulse Rate 71 76 Respiratory Rate 18 18 Blood Pressure 116/62 123/64 Pulse Oximetry 96 97 Oxygen Delivery Room Air 11/08/21 20:00 11/08/21 20:39 11/08/21 21:36 Temperature 98.5 F Pulse Rate 70 Respiratory Rate 16 Blood Pressure 147/79 H Pulse Oximetry 95 97 Oxygen Delivery Room Air Room Air 11/09/21 06:00 Temperature 98.3 F Pulse Rate 80 Respiratory Rate 18 Blood Pressure 149/82 H Pulse Oximetry 100 Oxygen Delivery Intake/Output Intake/Output: Intake & Output 11/06/21 11/07/21 11/08/21 11/09/21 23:59 23:59 23:59 23:59 Intake Total 3960 / 3960 2090 / 2090 2041 / 2041 450 / 450 Output Total 850 / 850 740 / 740 900 / 900 1000 / 1000 Balance 3110 / 3110 1350 / 1350 1142 / 1142 -550 / -550 Meds/Results Medications: Active Medications Generic Name Dose Route Start Last Admin Trade Name Freq PRN Reason Stop Dose Admin Acetaminophen 650 mg 11/07/21 16:40 Acetaminophen 325 Mg Tablet PO Q6H PRN Pain Rated 1-3 Hydrocodone Bitart/Acetaminophen 1 tab 11/07/21 16:40 Hydrocodone/Acetaminophen (*Crx) 5-325 Mg Tablet PO Q3H PRN Pain Rated 4-6 Hydrocodone Bitart/Acetaminophen 2 tab 11/07/21 16:40 Hydrocodone/Acetaminophen (*Crx) 5-325 Mg Tablet PO Q6H PRN Pain Rated 7-10 Cyanocobalamin 1,000 mcg 11/07/21 18:25 11/07/21 20:57 Cyanocobalamin Inj 1,000 Mcg/Ml Vial IM 1,000 mcg WEEKLY DENNIS Administration Cyanocobalamin 1,000 mcg 11/08/21 09:00 11/09/21 08:17 Cyanocobalamin 1,000 Mcg Tablet PO 1,000 mcg QAM DENNIS Administration Finasteride 5 mg 11/06/21 09:00 11/09/21 08:17 Finasteride 5 Mg Tablet PO 5 mg QAM DENNIS Administration Heparin Sodium (Porcine) 5,000 units 11/07/21 21:00 11/09/21 08:18 Heparin Sodium 5,000 Units/Ml Vial SUB-Q 5,000 units Q12HR DENNIS Administration Vancomycin HCl 1,000 mg in 250 mls @ 250 mls/hr 11/07/21 17:00 11/09/21 06:45 Vancomycin 1,000 Mg/D5w 250 Ml IVPB 11/09/21 09:00 250 mls/hr Q36H DENNIS Administration Cefepime HCl 2 gm in 50 mls @ 100 mls/hr 11/08/21 09:00 11/09/21 08:18 Maxipime 2 Gm/D5w 50 Ml IVPB 100 mls/hr DAILY DENNIS Administration Vancomycin HCl 1,000 mg in 250 mls @ 250 mls/hr 11/10/21 00:00 Vancomycin 1,000 Mg/D5w 250 Ml IVPB Q18H SC
--- NOTE | 2021-11-09 10:48 | WPDURCON ---
Assessment and Plan Assessment and plan (1) Urinary retention: Code(s): R33.9 - Retention of urine, unspecified Status: Acute (2) BPH (benign prostatic hyperplasia): Code(s): N40.0 - Benign prostatic hyperplasia without lower urinary tract symptoms Status: Acute (3) Gross hematuria: Code(s): R31.0 - Gross hematuria Status: Acute Plan No acute urologic intervention -- patient had outpatient gross hematuria workup started at end of October Patient may have voiding trial prior to discharge given that his tejada is not in place for clot retention, it may be removed even if having gross hematuria as he was voiding on his own with gross hematuria prior to coming into the hospital Patient to follow up with Dr. Edge as planned Urology Consult Note HPI Date Seen: 11/09/21 Requesting Physician: Dilma Moore DO Primary Care Provider: Shorty Meyers MD Consult Narrative Narrative: Matteo Holman is a 81 year old male admitted for concern of a septic knee s/p washout for whom Urology is consulted for hematuria. He is established with Dr. Edge, and was last seen 10/29/2021 for gross hematuria (urine culture negative at that time). His outpatient workup for hematuria is already under way (planned cystoscopy 11/17/2021). He has a known enlarged prostate and takes Finasteride. He had a tejada placed this hospitalization and there was some blood seen in the urine. Review of Systems Review of Systems: All systems reviewed & are unremarkable except as noted in HPI and below PMFSH Past Medical History Medical History AAA (abdominal aortic aneurysm) BPH (benign prostatic hyperplasia) CKD (chronic kidney disease), stage III Hy kid NOS w cr kid I-IV Hypertension Hypothyroidism Surgical History Surgical History History of appendectomy History of cholecystectomy History of right inguinal hernia repair with 6cm Parietex hernia mesh system 04/27/2019 07/16/2020 Repair recurrent right inguinal hernia with 8 cm Parietex hernia mesh system History of tonsillectomy Hx of arthroscopy of left knee Hx of arthroscopy of right knee S/P skin cancer resection 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 Other Unknown family medical history Social History Social History Smoking packs per day: 1 Smoking cigarettes per day: 20.0 Years smoked: 20 Smoking pack-years: 20.00 Smoking status: Former smoker Second hand tobacco smoke exposure: No Additional smoking assessment comments: STATES 3/4-1PK/DAY/25YRS, QUIT 2004 Alcohol intake: never Substance use: never Substance use type: does not use Gender identity (if verbalized by the patient): Male Spiritual care concerns: No Meds Home Medications and Allergies Home Medications Medication Instructions Recorded Confirmed Type acetaminophen 500 mg tablet 500 mg PO Q6H PRN Pain 07/03/20 11/06/21 History (Tylenol Extra Strength) finasteride 5 mg tablet 5 mg PO QAM 07/03/20 11/06/21 History levothyroxine 100 mcg tablet 100 mcg PO DAILY #90 tabs 04/16/21 11/06/21 Rx triamterene 37.5 1 tablet PO QAM #90 tabs 08/26/21 11/06/21 Rx mg-hydrochlorothiazide 25 mg tablet Allergies Allergy/AdvReac Type Severity Reaction Status Date / Time NSAIDS (Non-Steroidal AdvReac Severe AVOIDANCE Verified 11/05/21 23:33 Anti-Inflamma RELATED TO RENAL DISEASE levofloxacin [From Levaquin] AdvReac Mild Itching Verified 11/05/21 23:33 Vital Signs Vital Signs - 24 hr 11/07/21 22:25 11/08/21 06:16 11/08/21 08:00 Temperature 36.5 C 36.5 C Pulse Rate 102 H 69 Respiratory Rate 18 17 Blood Pressure 132/74 141/81 H Pulse Oximetry 95 96 Oxygen Deli
[2021-11-09 14:00] VITALS: BP 125/71; PULSE 83; RESP 16; TEMP 36.6; O2SAT 98
--- NOTE | 2021-11-09 17:16 | PM.IMPN ---
Progress Note: A&P Assessment and Plan (1) Septic arthritis of knee, right: Code(s): M00.9 - Pyogenic arthritis, unspecified Status: Acute Assessment and Plan: Patient presents with right knee pain. No trauma. Concern for septic arthritis so an arthrocentesis was performed which showed cloudy brown fluid with 204K white cells with majority neutrophils. No crystals. He started on vancomycin and Ancef. Given the possible seeding from the bladder, we broaden coverage to include Pseudomonas coverage. Gram stain negative for micro organisms. He went for knee wash out 11/07 and tolerated the procedure well. Appreciate orthopedic surgery input. WBC normal now. BCx NGTD. Synovial fluid cultures NGTD. Unfortunately, no cultures to base plans for home abx regiment. Will discuss with ortho. (2) CKD (chronic kidney disease), stage III: Code(s): N18.3 - Chronic kidney disease, stage 3 (moderate) Status: Acute Assessment and Plan: Baseline creatinine runs 1.5-2.0 range over the past 3 years. Creatinine 2.4 on admission felt to have LARRY. Could be dehydration and/or ATN. Repeat creatinine has improved to 1.6. Etiology of his CKD is unclear. Studies for pulmonary renal syndrome pending. Recent Abdominal CT does show enlarged prostate and bilateral renal cysts. Continue to monitor. (3) BPH (benign prostatic hyperplasia): Code(s): N40.0 - Benign prostatic hyperplasia without lower urinary tract symptoms Status: Acute Assessment and Plan: There was mention of urinary retention noted but not sure how much was in bladder prior to Barber placed. Now having hematuria but not uncommon per patient and family. On Heparin SQ but will continue for now. Urology following and appreciate their input. Continue finasteride. (4) Hypertension: Code(s): I10 - Essential (primary) hypertension Status: Acute Assessment and Plan: Patient's blood pressure was reviewed on 11/09 Blood pressure remains well controlled. Home medications held. Will continue to follow. Consider Norvasc if he needs better BP control. (5) Hyponatremia: Code(s): E87.1 - Hypo-osmolality and hyponatremia Status: Acute Assessment and Plan: Patient with mild chronic intermittent hyponatremia. Sodium 131 on admission possibly related to his Maxide. Sodium dropped to 128 but then improved. Continue to hold Maxide. (6) Interstitial lung disease: Code(s): J84.9 - Interstitial pulmonary disease, unspecified Status: Acute Assessment and Plan: CT of the abdomen 1 month ago showed severe chronic ILD. This could explain his reason for decreasing his activity level. He also has CKD. Consider pulmonary renal syndromes. Workup is in process. He may have cirrhosis as well. Hepatitis studies were negative. He did have O2 requirement but now weaned to room air. Follow (7) Hypothyroidism: Code(s): E03.9 - Hypothyroidism, unspecified Status: Acute Assessment and Plan: TSH was normal so we continued levothyroxine. (8) AAA (abdominal aortic aneurysm): Code(s): I71.4 - Abdominal aortic aneurysm, without rupture Status: Acute Assessment and Plan: CT last month showing suprarenal 3.2 cm AAA and infrarenal 3.2 cm AAA. Will defer to his primary care doctor for further management. (9) B12 deficiency: Code(s): E53.8 - Deficiency of other specified B group vitamins Status: Acute Assessment and Plan: B12 level was low at 228 so this was replaced. Plan DVT prophylaxis: Heparin Code status: full code Subjective Date/time seen: 11/09/21 17:16 Interval history: 81yo male with HTN, ILD and CKD 3 here for right knee pain 2nd to septic knee.? Patient again refuses exam today. He states everything is taking care of by the other physicians and that he does not need for me to examine him are ask questions. F
[2021-11-09 22:00] VITALS: BP 153/78; PULSE 73; RESP 20; TEMP 36.6; O2SAT 95
[2021-11-10] MEDS: LEVOTHYROXINE SODIUM 100 MCG TABLET PO (05:50)
[2021-11-10 06:43] LABS: Estimated CRCL calculation 38 ml/min; Estimated Glomerular Filt Rate 49
--- NOTE | 2021-11-10 07:21 | PC.NURSE ---
Per Dr. Baires, the small mepilex is not what the dressing he wants on the [address] Baires stated he wants the opsite post-op dressings. The smallest opsite dressing available is 61/8 x 3/3/8 . The mepilex were removed and 3 opsite dressings were applied.
--- NOTE | 2021-11-10 08:01 | PM.PNORT ---
Progress Note: A&P Assessment and Plan (1) Septic arthritis of knee, right: Code(s): M00.9 - Pyogenic arthritis, unspecified Status: Acute Plan Doing very well postop day three. The weight three-day cultures. If these are negative can go home on broad-spectrum empiric oral antibiotics. Follow up with me will be in two weeks for suture removal. Following. Subjective Subjective Date/Time Seen: 11/10/21 08:01 Post Op day: 3 Principal diagnosis: Dx: Status post arthroscopic washout right knee Interval history: 81-year-old male who is postop day three arthroscopic washout right knee. Doing very well. Having no pain in the knee. Exam Const: General: cooperative, alert and awake Orientation/consciousness: patient oriented x3 HENMT: Head: normal to inspection Ears: hearing grossly normal bilaterally Resp: Effort & Inspection: able to speak in complete sentences GI: Inspection: non-distended GI Palp: No abdominal tenderness Neuro: General: patient oriented x3 Extrem: Other: Exam of right knee shows no swelling, no limitation of motion and try incisions with no erythema. Neurovascular status right lower extremity is intact. Psych: Mental Status: mental status grossly normal Objective Data Vital Signs Vital Signs: Vital Signs - 24 hr 11/09/21 14:00 11/09/21 22:00 Temperature 97.8 F 97.9 F Pulse Rate 83 73 Respiratory Rate 16 20 Blood Pressure 125/71 153/78 H Pulse Oximetry 98 95 Intake/Output Intake/Output: Intake & Output 11/07/21 11/08/21 11/09/21 11/10/21 23:59 23:59 23:59 23:59 Intake Total 2089 / 2090 2042 / 2042 2534 / 2534 650 / 650 Output Total 740 / 740 900 / 900 1999 / 1999 1775 / 1775 Balance 1350 / 1350 1142 / 1142 534 / 534 -1125 / -1125 Meds/Results Medications: Active Medications Generic Name Dose Route Start Last Admin Trade Name Freq PRN Reason Stop Dose Admin Acetaminophen 650 mg 11/07/21 16:40 Acetaminophen 325 Mg Tablet PO Q6H PRN Pain Rated 1-3 Hydrocodone Bitart/Acetaminophen 1 tab 11/07/21 16:40 Hydrocodone/Acetaminophen (*Crx) 5-325 Mg Tablet PO Q3H PRN Pain Rated 4-6 Hydrocodone Bitart/Acetaminophen 2 tab 11/07/21 16:40 Hydrocodone/Acetaminophen (*Crx) 5-325 Mg Tablet PO Q6H PRN Pain Rated 7-10 Cyanocobalamin 1,000 mcg 11/07/21 18:25 11/07/21 20:57 Cyanocobalamin Inj 1,000 Mcg/Ml Vial IM 1,000 mcg WEEKLY DENNIS Administration Cyanocobalamin 1,000 mcg 11/08/21 09:00 11/09/21 08:17 Cyanocobalamin 1,000 Mcg Tablet PO 1,000 mcg QAM DENNIS Administration Finasteride 5 mg 11/06/21 09:00 11/09/21 08:17 Finasteride 5 Mg Tablet PO 5 mg QAM DENNIS Administration Heparin Sodium (Porcine) 5,000 units 11/07/21 21:00 11/09/21 20:40 Heparin Sodium 5,000 Units/Ml Vial SUB-Q 5,000 units Q12HR DENNIS Administration Cefepime HCl 2 gm in 50 mls @ 100 mls/hr 11/08/21 09:00 11/09/21 09:00 Maxipime 2 Gm/D5w 50 Ml IVPB Infused DAILY DENNIS Infusion Vancomycin HCl 1,000 mg in 250 mls @ 250 mls/hr 11/10/21 00:00 11/10/21 00:58 Vancomycin 1,000 Mg/D5w 250 Ml IVPB Infused Q18H DENNIS Infusion Levothyroxine Sodium 100 mcg 11/06/21 07:20 11/10/21 05:50 Levothyroxine Sodium 100 Mcg Tablet PO 100 mcg DAILY@0630 DENNIS Administration Ondansetron HCl 4 mg 11/06/21 04:08 Ondansetron Inj 4 Mg/2 Ml Vial IV PUSH Q4H PRN Nausea Ondansetron HCl 4 mg 11/06/21 09:34 Ondansetron Inj 4 Mg/2 Ml Vial IV PUSH ONCE PRN Nausea Polyethylene Glycol 17 gm 11/08/21 09:00 11/09/21 08:19 Polyethylene Glycol 3350 17 Gm Powd.Pack PO Not Given QAM DENNIS Senna/Docusate Sodium 2 tab 11/07/21 17:00 11/09/21 16:34 Senna/Docusate Sodium Tablet PO Not Given BID [facility] Radiology Results: ITS Impressions Knee X-Ray 11/06/21 06:52 IMPRESSION: 1. Mild right knee osteoarthritis. Renal Ultrasound 11/06/21 11:52 IMPRESSION: 1. Med
[2021-11-10] MEDS: HEPARIN SODIUM 5,000 UNITS/ML VIAL 5000 UNITS SUB-Q ×2 (08:10→21:16)
[2021-11-10] MEDS: FINASTERIDE 5 MG TABLET PO (08:11)
[2021-11-10] MEDS: CYANOCOBALAMIN 1,000 MCG TABLET 1000 MCG PO (08:11)
[2021-11-10] MEDS: SENNA/DOCUSATE SODIUM TABLET 2 TAB PO (08:11)
[2021-11-10 11:26] LABS: Glucose Synovial Fluid 68 mg/dL
--- NOTE | 2021-11-10 12:09 | PM.IMPN ---
Progress Note: A&P Assessment and Plan (1) Septic arthritis of knee, right: Code(s): M00.9 - Pyogenic arthritis, unspecified Status: Acute Assessment and Plan: Patient presents with right knee pain. No trauma. Concern for septic arthritis so an arthrocentesis was performed which showed cloudy brown fluid with 204K white cells with majority neutrophils. No crystals. He started on vancomycin and Ancef. Given the possible seeding from the bladder, we broaden coverage to include Pseudomonas coverage. Gram stain negative for micro organisms. He went for knee wash out 11/07 and tolerated the procedure well. Appreciate orthopedic surgery input. WBC normal now. BCx NGTD. Synovial fluid cultures NGTD. Unfortunately, no cultures to base plans for home abx regiment. Discussed with PharmD ID. Plan for home tomorrow on Doxycycline and Augmetin. (2) CKD (chronic kidney disease), stage III: Code(s): N18.3 - Chronic kidney disease, stage 3 (moderate) Status: Acute Assessment and Plan: Baseline creatinine runs 1.5-2.0 range over the past 3 years. Creatinine 2.4 on admission felt to have LARRY. Could be dehydration and/or ATN. Repeat creatinine has improved to 1.4. Etiology of his CKD is unclear. Studies for pulmonary renal syndrome pending. Recent Abdominal CT does show enlarged prostate and bilateral renal cysts. Continue to monitor. (3) BPH (benign prostatic hyperplasia): Code(s): N40.0 - Benign prostatic hyperplasia without lower urinary tract symptoms Status: Acute Assessment and Plan: There was mention of urinary retention noted but not sure how much was in bladder prior to Barber placed. Now having hematuria but not uncommon per patient and family. On Heparin SQ but will continue for now. Urology following and appreciate their input. Continue finasteride. Urology recommending a voiding trial. Remove Barber in the morning. (4) Hypertension: Code(s): I10 - Essential (primary) hypertension Status: Acute Assessment and Plan: Patient's blood pressure was reviewed on 11/10 Blood pressure remains well controlled. Maxide held. Will continue to follow. Consider Norvasc if he needs better BP control. (5) Hyponatremia: Code(s): E87.1 - Hypo-osmolality and hyponatremia Status: Acute Assessment and Plan: Patient with mild chronic intermittent hyponatremia. Sodium 131 on admission possibly related to his Maxide. Sodium dropped to 128 but then improved. Continue to hold Maxide. (6) Interstitial lung disease: Code(s): J84.9 - Interstitial pulmonary disease, unspecified Status: Acute Assessment and Plan: CT of the abdomen 1 month ago showed severe chronic ILD. This could explain his reason for decreasing his activity level. He also has CKD. Consider pulmonary renal syndromes. Workup is in process. He may have cirrhosis as well. Hepatitis studies were negative. He did have O2 requirement but now weaned to room air. Follow (7) Hypothyroidism: Code(s): E03.9 - Hypothyroidism, unspecified Status: Acute Assessment and Plan: TSH was normal so we continued levothyroxine. (8) AAA (abdominal aortic aneurysm): Code(s): I71.4 - Abdominal aortic aneurysm, without rupture Status: Acute Assessment and Plan: CT last month showing suprarenal 3.2 cm AAA and infrarenal 3.2 cm AAA. Will defer to his primary care doctor for further management. (9) B12 deficiency: Code(s): E53.8 - Deficiency of other specified B group vitamins Status: Acute Assessment and Plan: B12 level was low at 228 so this was replaced. Plan DVT prophylaxis: Heparin Code status: full code Subjective Date/time seen: 11/10/21 12:09 Interval history: 81yo male with HTN, ILD and CKD 3 here for right knee pain 2nd to septic knee.? Eating okay. No problems overnight. Denies any knee pain.
[2021-11-10 14:00] VITALS: BP 146/79; PULSE 73; RESP 16; TEMP 36.5; O2SAT 96
--- NOTE | 2021-11-10 16:36 | WPDUROPN2 ---
Progress Note: A&P Assessment and Plan (1) Gross hematuria: Code(s): R31.0 - Gross hematuria Status: Acute Plan No acute urologic intervention -- patient had outpatient gross hematuria workup started at end of October Patient may have voiding trial prior to discharge given that his tejada is not in place for clot retention, it may be removed even if having gross hematuria as he was voiding on his own with gross hematuria prior to coming into the hospital Patient to follow up with Dr. Edge as planned Urology will sign off at this time Subjective Subjective Date/Time Seen: 11/10/21 16:36 No acute events overnight Tejada continues to drain without issue Clear red urine in bag Review of Systems Review of Systems: All systems reviewed & are unremarkable except as noted in HPI and below Exam Narrative: No acute distress Nonlabored breathing Tejada draining clear red urine Objective Data Vital Signs Vital Signs: Vital Signs - 24 hr 11/09/21 22:00 11/10/21 08:00 11/10/21 14:00 Temperature 36.6 C 36.5 C Pulse Rate 73 73 Respiratory Rate 20 16 Blood Pressure 153/78 H 146/79 H Pulse Oximetry 95 96 Oxygen Delivery Room Air Intake/Output Intake/Output: Intake & Output 11/07/21 11/08/21 11/09/21 11/10/21 23:59 23:59 23:59 23:59 Intake Total 2090 2042 2534 1130 Output Total 857 726 0136 2175 Balance 1350 1142 534 -1045 Meds/Results Medications: Active Medications Generic Name Dose Route Start Last Admin Trade Name Freq PRN Reason Stop Dose Admin Acetaminophen 650 mg 11/07/21 16:40 Acetaminophen 325 Mg Tablet PO Q6H PRN Pain Rated 1-3 Hydrocodone Bitart/Acetaminophen 1 tab 11/07/21 16:40 Hydrocodone/Acetaminophen (*Crx) 5-325 Mg Tablet PO Q3H PRN Pain Rated 4-6 Hydrocodone Bitart/Acetaminophen 2 tab 11/07/21 16:40 Hydrocodone/Acetaminophen (*Crx) 5-325 Mg Tablet PO Q6H PRN Pain Rated 7-10 Cyanocobalamin 1,000 mcg 11/07/21 18:25 11/07/21 20:57 Cyanocobalamin Inj 1,000 Mcg/Ml Vial IM 1,000 mcg WEEKLY DENNIS Administration Cyanocobalamin 1,000 mcg 11/08/21 09:00 11/10/21 08:11 Cyanocobalamin 1,000 Mcg Tablet PO 1,000 mcg QAM DENNIS Administration Finasteride 5 mg 11/06/21 09:00 11/10/21 08:11 Finasteride 5 Mg Tablet PO 5 mg QAM DENNIS Administration Heparin Sodium (Porcine) 5,000 units 11/07/21 21:00 11/10/21 08:10 Heparin Sodium 5,000 Units/Ml Vial SUB-Q 5,000 units Q12HR DENNIS Administration Vancomycin HCl 1,000 mg in 250 mls @ 250 mls/hr 11/10/21 00:00 11/10/21 00:58 Vancomycin 1,000 Mg/D5w 250 Ml IVPB Infused Q18H DENNIS Infusion Cefepime HCl 2 gm in 50 mls @ 100 mls/hr 11/10/21 21:00 Maxipime 2 Gm/D5w 50 Ml IVPB Q12H DENNIS Levothyroxine Sodium 100 mcg 11/06/21 07:20 11/10/21 05:50 Levothyroxine Sodium 100 Mcg Tablet PO 100 mcg DAILY@0630 [facility] Administration Ondansetron HCl 4 mg 11/06/21 04:08 Ondansetron Inj 4 Mg/2 Ml Vial IV PUSH Q4H PRN Nausea Ondansetron HCl 4 mg 11/06/21 09:34 Ondansetron Inj 4 Mg/2 Ml Vial IV PUSH ONCE PRN Nausea Polyethylene Glycol 17 gm 11/08/21 09:00 11/10/21 08:11 Polyethylene Glycol 3350 17 Gm Powd.Pack PO Not Given QAM DENNIS Senna/Docusate Sodium 2 tab 11/07/21 17:00 11/10/21 16:07 Senna/Docusate Sodium Tablet PO Not Given BID [facility] Radiology Results: ITS Impressions Knee X-Ray 11/06/21 06:52 IMPRESSION: 1. Mild right knee osteoarthritis. Renal Ultrasound 11/06/21 11:52 IMPRESSION: 1. Medical renal disease. Chest X-Ray 11/07/21 06:43 IMPRESSION: 1. Diffuse lung disease with worsening from 05/18/2017, likely a combination of emphysema and chronic interstitial lung disease. Labs Labs: Laboratory Results - last 24 hr 11/06/21 11/10/21 02:25 03:23 Creatinine 1.40 H Estim Creat Clear Calc 38 Estimated GFR 49 L Synovial Glu
[2021-11-10 22:00] VITALS: BP 160/84; PULSE 68; RESP 20; TEMP 36.4; O2SAT 97
[2021-11-11] MEDS: LEVOTHYROXINE SODIUM 100 MCG TABLET PO (05:45)
[2021-11-11 06:00] VITALS: BP 167/90; PULSE 75; RESP 20; TEMP 36.4; O2SAT 96
[2021-11-11 07:27] LABS: Hemoglobin 12.3 g/dL (14.0-18.0); Mean Corpuscular HGB Conc 33.2 g/dl (32-36); Mean Corpuscular Hemoglobin 34.2 pg (26-34); Mean Corpuscular Volume 102.8 fl (80-100); Mean Platelet Volume 8.9 fl (7.4-10.4); Platelet Count Result 230 k/mm3 (150-375); Red Cell Distribution Width 12.9 % (11.5-14.5); White Blood Count 7.4 K/mm3 (4.5-10.0)
[2021-11-11 08:05] LABS: Albumin Level 2.9 g/dL (3.5-5.1); Anion Gap 7 mmol/L (8-16); Blood Urea Nitrogen 16 mg/dL (9-20); Carbon Dioxide 26 mmol/L (22-30); Chloride 103 mmol/L (98-107); Estimated CRCL calculation 41 ml/min; Estimated Glomerular Filt Rate 53; Glucose 96 mg/dL (65-110); Phosphorus 1.9 mg/dL (2.5-4.5); Potassium 3.3 mmol/L (3.4-5.0); Sodium 136 mmol/L (137-145)
[2021-11-11] MEDS: SENNA/DOCUSATE SODIUM TABLET 2 TAB PO (08:27)
[2021-11-11] MEDS: AMOXICILLIN/CLAVULANATE K 875-125 MG TAB 1 TABLET PO (08:27)
[2021-11-11] MEDS: amLODIPine BESYLATE 2.5 MG TABLET PO (08:27)
[2021-11-11] MEDS: DOXYCYCLINE HYCLATE 100 MG TABLET PO (08:27)
[2021-11-11] MEDS: CYANOCOBALAMIN 1,000 MCG TABLET 1000 MCG PO (08:27)
[2021-11-11] MEDS: FINASTERIDE 5 MG TABLET PO (08:28)
[2021-11-11] MEDS: polyethylene glycoL 3350 17 GM POWD.PACK PO (08:28)
[2021-11-11] MEDS: HEPARIN SODIUM 5,000 UNITS/ML VIAL 5000 UNITS SUB-Q (08:28)
--- NOTE | 2021-11-11 10:59 | PM.DS ---
DS: Admitting Diagnosis Discharge Date 11/11/21 Admitting Diagnosis Knee pain DS: Discharge Diagnosis Discharge Diagnosis (1) Septic arthritis of knee, right: Code(s): M00.9 - Pyogenic arthritis, unspecified Status: Acute (2) CKD (chronic kidney disease), stage III: Code(s): N18.3 - Chronic kidney disease, stage 3 (moderate) Status: Acute (3) BPH (benign prostatic hyperplasia): Code(s): N40.0 - Benign prostatic hyperplasia without lower urinary tract symptoms Status: Acute (4) Hypertension: Code(s): I10 - Essential (primary) hypertension Status: Acute (5) Hyponatremia: Code(s): E87.1 - Hypo-osmolality and hyponatremia Status: Acute (6) Interstitial lung disease: Code(s): J84.9 - Interstitial pulmonary disease, unspecified Status: Acute (7) Hypothyroidism: Code(s): E03.9 - Hypothyroidism, unspecified Status: Acute (8) AAA (abdominal aortic aneurysm): Code(s): I71.4 - Abdominal aortic aneurysm, without rupture Status: Acute (9) B12 deficiency: Code(s): E53.8 - Deficiency of other specified B group vitamins Status: Acute DS: Summary Hospital Course Reason for hospitalization: 81yo male with HTN, ILD and CKD 3 here for right knee pain 2nd to septic knee.?Please see H&P for details Hospital Course: Patient presents with right knee pain.? No trauma.? Concern for septic arthritis so an arthrocentesis was performed which showed cloudy brown fluid with 204K white cells with majority neutrophils.? No crystals.? He was started on vancomycin and Ancef.? Given the possible seeding from the bladder, we broaden coverage to include Pseudomonas coverage. Gram stain negative for micro organisms. He went for knee wash out 11/07 and tolerated the procedure well.?WBC normal now. BCx NGTD. Synovial fluid cultures NGTD. Unfortunately, no cultures to base plans for home abx regiment. Discussed with PharmD ID. Plan for oral abx with Doxycycline and Augmentin x4 total. Discussed with ortho. Baseline creatinine runs 1.5-2.0 range over the past 3 years.? Creatinine 2.4 on admission felt to have LARRY.? Could be dehydration and/or ATN.? Repeat creatinine has improved to 1.4.? Etiology of his CKD is unclear. Studies for pulmonary renal syndrome pending.? Recent Abdominal CT does show enlarged prostate and bilateral renal cysts. There was mention of urinary retention noted but not sure how much was in bladder prior to Barber placed. He was having hematuria but not uncommon per patient and family. Urology consulted and appreciate their input. We continued finasteride. Urology recommended a voiding trial. Barber removed and patient has been voiding normally. Maxide held. Blood pressure remained mostly well controlled but now higher so low dose Norvasc added. Patient with mild chronic intermittent hyponatremia.? Sodium 131 on admission possibly related to his Maxide.? Sodium dropped to 128 but then improved.? No plans to resume Maxide. CT of the abdomen 1 month ago showed severe chronic ILD.? This could explain his reason for his self-imposed decrease in his activity level.? He also has CKD.? Consider pulmonary renal syndromes. Workup is in process. He may have cirrhosis as well. Hepatitis studies were negative. He did have O2 requirement but was able to be weaned to room air. TSH was normal so we continued levothyroxine. CT last month showing suprarenal 3.2 cm AAA and infrarenal 3.2 cm AAA.? Will defer to his primary care doctor for further management. B12 level was low at 228 so this was replaced. After his surgery, patient worked with PT/OT. His knee pain improved. He was walking in the halls and doing stairs. He feels ready for discharge. Patient overall did well and was able to be discharged home on 11/11/2021. Status at Discharge Cognitive/behavioral status at discharge: Stable Time Spent with Patient Time attestation: Total time spent provid
[2021-11-11] MEDS: POTASSIUM PHOS/SODIUM PHOS 250 MG TABLET PO (11:15)
[2021-11-11 11:26] VITALS: BP 129/65
[2021-11-11 17:50] LABS: Albumin 2.6 g/dL (3.8-4.8); Alpha 1 Globulin 0.5 g/dL (0.2-0.3); Beta 1 Globulin 0.4 g/dL (0.4-0.6); Gamma Globulin 1.1 g/dL (0.8-1.7); Protein, Total 6.1 g/dL (6.1-8.1)
[2021-11-12 22:24] LABS: ANCA Screen Negative (Negative)
--- NOTE | 2021-11-13 07:27 | PC.NURSE ---
ANCA is negative, DNA DS is 1 SPEP- no M spike Dr. Bains aware.
[2021-11-14 12:06] LABS: Anti Glomerular Basement Memb <1.0 AI (<1.0)
[2021-11-15 01:00] LABS: Total Protein/Creatinine Ratio 920 mg/g creat (25-148)
--- NOTE | 2021-12-03 07:51 | PC.NURSE ---
Urine If no M spike. Synovial fluid cx is negative. Dr. Nara strickland.
--- NOTE | 2021-12-09 07:56 | PC.NURSE ---
CRISTIANO is 1:320. Dr. Bains aware. Results faxed to Dr. Meyers.
== END 2021-11-11 14:02 | disposition home or self-care (01) | DRG 485 ==
LOC: ANHED 11-06 05:01 → ANH3MEDSUR 11-06 05:11
PROVIDERS: Orthopaedic Surgery; Admitting Provider Student in an Organized Health Care Education/Training Program; Emergency Provider Emergency Medicine; PCP Family Medicine; Visit Provider Internal Medicine
PROC: 0SBC4ZZ Excision of Right Knee Joint, Percutaneous Endoscopic Approach (ICD-10-PCS; CPT 29870; principal; 2021-11-07 10:30)
DX: M00.861 Arthritis due to other bacteria, right knee (principal); N17.0 Acute kidney failure with tubular necrosis; E87.1 Hypo-osmolality and hyponatremia; J84.9 Interstitial pulmonary disease, unspecified; M65.861 Other synovitis and tenosynovitis, right lower leg; R31.0 Gross hematuria; R33.9 Retention of urine, unspecified; I12.9 Hypertensive chronic kidney disease with stage 1 through stage 4 chronic kidney disease, or unspecified chronic kidney disease; N18.30 Chronic kidney disease, stage 3 unspecified; N40.0 Benign prostatic hyperplasia without lower urinary tract symptoms; E03.9 Hypothyroidism, unspecified; I71.4 Abdominal aortic aneurysm, without rupture; K74.60 Unspecified cirrhosis of liver; E53.8 Deficiency of other specified B group vitamins; E86.0 Dehydration; Z90.49 Acquired absence of other specified parts of digestive tract; Z85.828 Personal history of other malignant neoplasm of skin; Z87.891 Personal history of nicotine dependence
CPT/HCPCS: 20610; 36415; 36569; 71045; 73562; 76775; 80048; 80053; 80069; 80202; 82550; 82565; 82570; 82607; 82746; 82945; 83520; 83735; 84155; 84156; 84157; 84165; 84166; 84300; 84443; 84550; 85025; 85027; 85610; 85652; 85730; 85999; 86036; 86038; 86039; 86140; 86160; 86225; 86334; 86705; 86706; 86803; 87040; 87070; 87075; 87086; 87205; 87340; 89051; 89060; 93005; 96361; 96372; 96375; 96376; 97110; 97116; 97161; 97165; 97530; 99285; A9270; C1751; G0378; J0690; J0692; J1100; J1170; J1644; J2270; J2370; J2405; J2704; J3010; J3370; J3420; J7030; J7120

== ENCOUNTER 2021-11-27 00:14 | Day surgery (SDC) | payer MEDICARE, OTHER, SELFPAY ==
[2021-11-21 13:45] VITALS: BMI 21.9
--- NOTE | 2021-11-21 13:57 | PC.NURSE ---
Report to the Outpatient Waiting Room, entrance under the green pavilion located off [facility], at time _0615_ on date _[id number]_. OR Time: _0815_. Time changes happen often and if your time is changed the preop area will call you the afternoon before. - You and your visitor will be asked to self-screen and do not enter if you have any COVID symptoms. - Only one visitor and NO children visitors are allowed at this time. - The patient visitor is requested to leave or wait in car when not with patient due to restrictions. - A mask is required within the hospital. Patients may have clear liquids (water, carbonated beverages, clear teas, apple juice) until 3 hours prior to surgery with a maximum of 20 ounces. - No food from midnight until time of surgery Take the following medications with a SIP of water the morning of surgery: ____Amlodipine and Levothyroxine Medications to discontinue per physician Vitamin b-12 Date to take last [id number]__[id number] Please no make-up, nail serbian, hairspray, perfume, deodorant, or body powder the day of surgery. No jewelry (including any body piercings) or valuables the day of surgery, leave them at home. Please take a shower or bath the night before, or the morning of, surgery with an antibacterial soap. Wear comfortable, loose fitting clothing. - Jewelry must be removed prior to entering the operating room. Rings and piercings that are not removed may be cut off. - The hospital will not accept responsibility for valuables. - Please leave all valuables, including medications, at home the day of surgery. If you are going home after surgery, a licensed sweeper driver must drive you home. - NO public transportation without another adult. - We recommend that an adult stay with you for 24 hours following discharge. - We also recommend that you do not drive, make important decision, drink alcoholic beverages, or take any drugs that were not prescribed by your health care provider for at least 24 hours after your discharge time. Follow any additional instructions given to you from your surgeon. If you or anyone in your household have experienced Covid symptoms in the past week, please notify your surgeon or the nurse liaison at the phone number below for possible testing. Telephone instructions given to __Patient___and asked if any additional questions and then verbalized understanding. Patient advised to call surgeon office or pre surgery nurse liaison [phone] if any additional questions.
[2021-11-27] VITALS (10 sets, daily range): BP systolic 116–174; BP diastolic 61–89; PULSE 60–75; RESP 12–22; TEMP 36.5–36.7; O2SAT 95–100
--- NOTE | 2021-11-27 06:44 | WPDHPUPDATE1 ---
History and Physical Update Update Date/Time: 11/27/21 06:44 History and Physical has been reviewed, including an updated exam of the patient. There are NO changes in the patient's condition. Risks, benefits, and alternatives have been discussed and questions answered. Patient agrees to proceed with procedure.
[2021-11-27] MEDS: LACTATED RINGERS 1,000 ML 30 ML IV CONT (07:15)
--- NOTE | 2021-11-27 07:33 | WPDANESEPPF ---
Anes - Initial Pre Proc Eval Procedure: Operation Date: 11/27/21 08:15 Proposed Procedures p Trans Urethral Resection Bladder Tumor with Gemcitabine Instillation - Reggie Edge MD Date/Time: 11/27/21 07:33 Surgeon: Reggie Edge MD Pre Op Diagnosis: bladder CA Patient Data Age: 81 Gender: M Height: 1.83 m Weight: 71.9 kg Last Vital Signs Temp 36.5 C 11/27/21 07:16 Pulse 74 11/27/21 07:16 Resp 14 11/27/21 07:16 BP 158/79 H 11/27/21 07:16 Pulse Ox 95 11/27/21 07:16 O2 Del Method Room Air 11/27/21 07:16 Allergies Allergy/AdvReac Type Severity Reaction Status Date / Time NSAIDS (Non-Steroidal AdvReac Severe AVOIDANCE Verified 11/27/21 07:22 Anti-Inflamma RELATED TO RENAL DISEASE levofloxacin [From Levaquin] AdvReac Mild Itching Verified 11/27/21 07:22 Home Medications Medication Instructions Recorded Confirmed Type acetaminophen 500 mg tablet 500 mg PO Q6H PRN Pain 07/03/20 11/21/21 History (Tylenol Extra Strength) finasteride 5 mg tablet 5 mg PO QAM 07/03/20 11/27/21 History levothyroxine 100 mcg tablet 100 mcg PO DAILY #90 tabs 04/16/21 11/27/21 Rx amlodipine 2.5 mg tablet 2.5 mg PO QAM #30 tabs 11/11/21 11/27/21 Rx amoxicillin 875 mg-potassium 1 tablet PO Q12H #45 tabs 11/11/21 11/21/21 Rx clavulanate 125 mg tablet cyanocobalamin (vitamin B-12) 1,000 mcg PO QAM #30 tabs 11/11/21 11/21/21 Rx 1,000 mcg tablet (Vitamin B-12) doxycycline hyclate 100 mg tablet 100 mg PO Q12HR #45 tabs 11/11/21 11/21/21 Rx Patient hx anesthesia problems: none Family hx anesthesia problems: none Results Review: All pre-operative results and documents have been reviewed as part of the pre-operative evaluation. [facility] Past Medical History Medical History AAA (abdominal aortic aneurysm) BPH (benign prostatic hyperplasia) CKD (chronic kidney disease), stage III Hy kid NOS w cr kid I-IV Hypertension Hypothyroidism Kidney disease No pertinent family history Thyroid disorder Surgical History Surgical History History of appendectomy 1960 History of cholecystectomy 2008 History of right inguinal hernia repair with 6cm Parietex hernia mesh system 04/27/2019 07/16/2020 Repair recurrent right inguinal hernia with 8 cm Parietex hernia mesh system History of tonsillectomy 1940 Hx of arthroscopy of left knee Hx of arthroscopy of right knee 1991 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 Other Unknown family medical history Social History Social History Smoking packs per day: 0.75 Smoking cigarettes per day: 15.0 Years smoked: 36 Smoking pack-years: 27.00 Smoking status: Former smoker Tobacco type: cigarettes Second hand tobacco smoke exposure: No Smoking end date: 11/21/05 Additional smoking assessment comments: STATES 3/4-1PK/DAY/25YRS, QUIT 2004 Alcohol intake: never Substance use: never Substance use type: does not use Living arrangements: alone Occupation/Education: retired Gender identity (if verbalized by the patient): Male Spiritual care concerns: No Anes - Eval Final PreProcedure Day of Procedure 11/27/21 07:33 Patient weight: normal Heart: regular rate and rhythm Lungs: clear to auscultation Airway: Mallampati scale class II Last oral intake: >/= 8 hours ASA classification: III Emergent: no Anesthetic plan: proceed Anesthesia type and monitoring: general LMA and standard monitoring Results Review: All pre-operative results and documents have been reviewed as part of the pre-opera
[2021-11-27] MEDS: ceFAZolin 2 GM/D5W 50 ML 2 GM/50 ML BAG IVPB (08:24)
[2021-11-27] MEDS: SODIUM CHLORIDE 0.9% IV 23.7 ML, GEMCITABINE HCL 1,000 MG BLADDER ×2 (09:15→09:16)
--- NOTE | 2021-11-27 09:19 | P.OP_ITS ---
Procedure Note - Detailed Date of Procedure 11/27/21 Pre-op Diagnosis Bladder CA Post-op Diagnosis Same Procedure Performed 1. TURBT (medium, 3-4cm) 2. Clot evacuation Surgeon Reggie Edge MD Description of Procedure The patient was brought to the operative suite where he is prepped and draped in a routine sterile fashion while in the dorsal lithotomy position. This is done after the uneventful administration of systemic sedation. 2% Xylocaine jelly is introduced intraurethrally and allowed to stand for an appropriate period of time. A 24F resectoscope sheath was placed in the bladder and the bladder is circumferentially inspected carefully. 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 There is also a moderate amount of clot in the dependent portion of the bladder. The tumor is resected in its entirety with an attempt made to include detrusor musc le for pathological evaluation of invasion. The resected pieces and bladder evacuated with a C3 Jian evacuator.The base and periphery of this resected site is cauterized with a loop electrode. The bladder is emptied and the resectoscope was removed. The patient is taken to the recovery room having tolerated this procedure well. Drains No Packing No Pathology Yes Complications No immediate complications Condition Stable
--- NOTE | 2021-11-27 09:23 | W.PM.PROC2 ---
Procedure Note - Detailed Date of Procedure 11/27/21 Pre-op Diagnosis Bladder CA Post-op Diagnosis Same Procedure Performed Gemcitabine installation Surgeon Reggie Edge MD Description of Procedure With the patient in the supine position, a 16F Barber catheter is placed using sterile technique. Using a protective facemask, gown and double layer of gloves Gemcitabine 2gm in 100cc saline is administered through the catheter/into the bladder. The catheter is then plugged. Patient was instructed to lie supine x20min, then to roll both the left and right x20 min. each. Total dwell time will be 60 min., after which the bladder will be drained and catheter removed. Drains No Packing No Pathology None sent Complications No immediate complications Condition Stable
[2021-11-27] MEDS: fentaNYL CITRATE INJ (*CRX) 100 MCG/2 ML VIAL 25 MCG IV PUSH ×2 (09:25→09:28)
== END 2021-11-27 11:40 | disposition home or self-care (01) ==
PROVIDERS: PCP Family Medicine; Visit Provider Urology
PROC: 0TBB8ZZ Excision of Bladder, Via Natural or Artificial Opening Endoscopic (ICD-10-PCS; CPT 52235; principal; 2021-11-27 08:15)
DX: C67.5 Malignant neoplasm of bladder neck (principal); I71.4 Abdominal aortic aneurysm, without rupture; N40.0 Benign prostatic hyperplasia without lower urinary tract symptoms; I12.9 Hypertensive chronic kidney disease with stage 1 through stage 4 chronic kidney disease, or unspecified chronic kidney disease; N18.30 Chronic kidney disease, stage 3 unspecified; E03.9 Hypothyroidism, unspecified; Z87.891 Personal history of nicotine dependence
CPT/HCPCS: 52235; 51720; 88305; A9270; J0690; J1100; J2405; J2704; J3010; J7120; J9201

== ENCOUNTER 2022-01-07 10:55 | Outpatient (CLI) | payer MEDICARE, OTHER, SELFPAY ==
[2022-01-07 11:12] LABS: Basophils Absolute Auto 0.1 K/mm3 (0.0-0.1); Basophils Percent Auto 0.6 % (0.2-1.2); Eosinophils Absolute Auto 0.3 K/mm3 (0-0.3); Eosinophils Percent Auto 3.7 % (0-4.4); Hemoglobin 14.1 g/dL (14.0-18.0); Immature Granulocyte Absolute 0.03 K/mm3 (0.00-0.031); Immature Granulocyte Percent A 0.4 % (0-0.5); Lymphocytes Absolute Auto 1.69 K/mm3 (0.9-3.2); Lymphocytes Percent Auto 21.7 % (18.3-44.2); Mean Corpuscular HGB Conc 32.8 g/dl (32-36); Mean Corpuscular Hemoglobin 34.1 pg (26-34); Mean Corpuscular Volume 103.9 fl (80-100); Mean Platelet Volume 9.2 fl (7.4-10.4); Monocytes Absolute Auto 0.8 K/mm3 (0.1-0.6); Monocytes Percent Auto 9.8 % (2.6-8.5); Neutrophils Percent Auto 63.8 % (45.5-73.1); Platelet Count Result 294 k/mm3 (150-375); Red Blood Count 4.14 M/mm3 (4.6-6.20); Red Cell Distribution Width 13.6 % (11.5-14.5); White Blood Count 7.8 K/mm3 (4.5-10.0)
[2022-01-07 11:27] LABS: Alanine Aminotransferase 15 U/L (6-50); Albumin Level 4.2 g/dL (3.5-5.1); Alkaline Phosphatase 112 U/L (38-126); Anion Gap 14 mmol/L (8-16); Aspartate Amino Transferase 24 U/L (17-59); Bilirubin,Total 0.8 mg/dL (0.2-1.3); Blood Urea Nitrogen 22 mg/dL (9-20); Calcium 9.5 mg/dL (8.4-10.2); Carbon Dioxide 25 mmol/L (22-30); Chloride 102 mmol/L (98-107); Cholesterol 157 mg/dL (0-200); Estimated Glomerular Filt Rate 49; Glucose 103 mg/dL (65-110); HDL Direct 44 mg/dL; Potassium 4.1 mmol/L (3.4-5.0); Sodium 141 mmol/L (137-145); Triglycerides 76 mg/dL (<150)
[2022-01-07 11:38] LABS: LDL Cholesterol Direct 84 mg/dL
== END 2022-01-07 10:56 | disposition home or self-care (01) ==
LOC: ANHLAB 10:57
PROVIDERS: PCP Family Medicine; Visit Provider Nurse Practitioner Family
DX: E78.2 Mixed hyperlipidemia (principal); I10 Essential (primary) hypertension; E87.1 Hypo-osmolality and hyponatremia; C67.5 Malignant neoplasm of bladder neck; E03.9 Hypothyroidism, unspecified; N18.30 Chronic kidney disease, stage 3 unspecified
CPT/HCPCS: 36415; 80053; 80061; 84443; 85025

== ENCOUNTER 2022-04-26 12:27 | Emergency (ER) | payer MEDICARE, OTHER, SELFPAY ==
--- NOTE | ~2022-04-26 | CT_ITS ---
EXAMINATION: CT abdomen pelvis w con DATE: 04/26/2022 17:33 INDICATION: Abdominal pain TECHNIQUE: Computed tomography (CT) of the abdomen and pelvis was performed with 100 mL Omnipaque-350 intravenous contrast. Automated exposure control and iterative reconstruction technique were employe d. The dose-length product was 326.65 mGy-cm. COMPARISON: 10/24/2021. FINDINGS: Lower thorax: Peripheral and basilar fibrosis. Aortic, mitral, and coronary artery calcification. Ins ert before no small mild distal esophageal and gastric wall edema. Uncomplicated appearing duodenal d iverticulum. Liver: Cirrhotic change. Biliary/Gallbladder: Gallbladder is absent. No bile duct dilation. Pancreas: No mass or duct dilation. Spleen: Normal. Adrenals:No mass. Kidneys: Multiple simple cysts bilaterally. Multiple bilateral hypodensities, too small to characteri ze but also likely represent cysts. No obstructing calcification. No suspicious mass. No hydronephros is. GI tract: No small or large bowel dilation. Appendix not confidently visualized. Diverticulosis witho ut diverticulitis. Mesentery/Peritoneum: No ascites, mass, or free air. Retroperitoneum: No mass. 3.2 x 2.0 saccular aneurysm of the suprarenal abdominal aorta. 2.1 cm x 2.2 saccular aneurysm off of the proximal right common iliac artery. Mild fusiform infrarenal abdominal aortic aneurysm. Pelvis: Mild bladder wall thickening and inflammatory change, possibly secondary to outlet compromise from prostatomegaly. Soft Tissues: Soft tissues and body wall unremarkable. Bones: No acute osseous finding. IMPRESSION: Mild esophagitis/gastritis. Otherwise no acute abdominopelvic process detected. Appendix not confiden tly visualized and may be surgically absent. Chronic and incidental findings detailed above. Reviewed, dictated and finalized at location K. END OPERATOR IMPRESSION: Mild esophagitis/gastritis. Otherwise no acute abdominopelvic process detected. Appendix not confidently visualized and may be surgically absent. Chronic and incidental findings detailed above.
[2022-04-26 12:36] VITALS: BP 148/88; PULSE 75; RESP 18; TEMP 36.4; O2SAT 97
[2022-04-26 13:00] LABS: Basophils Absolute Auto 0.1 K/mm3 (0.0-0.1); Basophils Percent Auto 0.7 % (0.2-1.2); Eosinophils Absolute Auto 0.3 K/mm3 (0-0.3); Eosinophils Percent Auto 3.3 % (0-4.4); Hematocrit 43.1 % (42.0-52.0); Hemoglobin 14.3 g/dL (14.0-18.0); Immature Granulocyte Absolute 0.03 K/mm3 (0.00-0.031); Immature Granulocyte Percent A 0.3 % (0-0.5); Lymphocytes Absolute Auto 1.73 K/mm3 (0.9-3.2); Lymphocytes Percent Auto 19.6 % (18.3-44.2); Mean Corpuscular HGB Conc 33.2 g/dl (32-36); Mean Corpuscular Hemoglobin 33.6 pg (26-34); Mean Corpuscular Volume 101.2 fl (80-100); Mean Platelet Volume 9.4 fl (7.4-10.4); Monocytes Absolute Auto 0.7 K/mm3 (0.1-0.6); Monocytes Percent Auto 7.6 % (2.6-8.5); Neutrophils Absolute Auto 6.1 K/mm3 (1.3-6.7); Neutrophils Percent Auto 68.5 % (45.5-73.1); Platelet Count Result 253 k/mm3 (150-375); Red Blood Count 4.26 M/mm3 (4.6-6.20); Red Cell Distribution Width 13.1 % (11.5-14.5); White Blood Count 8.8 K/mm3 (4.5-10.0)
[2022-04-26 13:11] LABS: Alanine Aminotransferase 13 U/L (6-50); Albumin Level 4.2 g/dL (3.5-5.1); Alkaline Phosphatase 147 U/L (38-126); Anion Gap 4 mmol/L (8-16); Aspartate Amino Transferase 19 U/L (17-59); Bilirubin,Total 0.6 mg/dL (0.2-1.3); Blood Urea Nitrogen 28 mg/dL (9-20); Calcium 9.6 mg/dL (8.4-10.2); Carbon Dioxide 26 mmol/L (22-30); Chloride 104 mmol/L (98-107); Estimated CRCL calculation 36 ml/min; Estimated Glomerular Filt Rate 45; Glucose 106 mg/dL (65-110); Lipase 55 U/L (23-300); Potassium 4.5 mmol/L (3.4-5.0); Sodium 134 mmol/L (137-145)
[2022-04-26 14:20] LABS: Appearance Urine Slightly Cloudy (Clear); Bilirubin Urine Negative (Negative); Blood Urine 1+ (Negative); Color Urine Yellow (Yellow); Glucose Urine UA Negative (Negative); Ketones Urine Negative (Negative); Leukocyte Esterase Ur 3+ LEU/UL (Negative); Nitrate Urine Negative (Negative); Protein Urine 1+ mg/dL (Negative); Specific Grav Ur 1.025 (1.001-1.035); Urobilinogen Urine 0.2 mg/dL (<2.0); pH Urine 5.5 (5.0-9.0)
[2022-04-26 14:21] LABS: WBC Clumps Urine Present /HPF; WBC Urine >75 /hpf
[2022-04-26 14:22] LABS: Add Urine Microscopic? YES
--- NOTE | 2022-04-26 16:16 | ED.ABDPAIN ---
HPI - Abdominal Pain General Chief Complaint: Abdominal Pain Stated Complaint: abd pain Time Seen by Provider: 04/26/22 16:19 Source: patient Mode of arrival: ambulatory History of Present Illness HPI narrative: 81 years old white female presented to the ED with intermittent sharp pain at the right lower abdomen. He denies any fever, chills, nausea, vomiting, urinary symptoms, chest pain or shortness of breath. Patient lives alone, came to the emergency room with his daughter. Related Data Home Medications Medication Instructions Recorded Confirmed acetaminophen 500 mg tablet 500 mg PO Q6H PRN Pain 07/03/20 01/12/22 (Tylenol Extra Strength) finasteride 5 mg tablet 5 mg PO QAM 07/03/20 04/26/22 Allergies Allergy/AdvReac Type Severity Reaction Status Date / Time NSAIDS (Non-Steroidal AdvReac Severe AVOIDANCE Verified 04/26/22 12:43 Anti-Inflamma RELATED TO RENAL DISEASE levofloxacin [From Levaquin] AdvReac Mild Itching Verified 04/26/22 12:43 Review of Systems Review of Systems: All systems reviewed & are unremarkable except as noted in HPI and below PMFSH Past Medical History Medical History AAA (abdominal aortic aneurysm) BPH (benign prostatic hyperplasia) CKD (chronic kidney disease), stage III Hy kid NOS w cr kid I-IV Hypertension Hypothyroidism Kidney disease No pertinent family history Thyroid disorder Surgical History Surgical History History of appendectomy 1960 History of cholecystectomy 2008 History of right inguinal hernia repair with 6cm Parietex hernia mesh system 04/27/2019 07/16/2020 Repair recurrent right inguinal hernia with 8 cm Parietex hernia mesh system History of tonsillectomy 194 Hx of arthroscopy of left knee Hx of arthroscopy of right knee 1991 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 Other Unknown family medical history Social History Social History Smoking packs per day: 0.75 Smoking cigarettes per day: 15.0 Years smoked: 36 Smoking pack-years: 27.00 Smoking status: Former smoker Tobacco type: cigarettes Second hand tobacco smoke exposure: No Smoking end date: 11/21/05 Additional smoking assessment comments: STATES 3/4-1PK/DAY/25YRS, QUIT 2004 Alcohol intake: never Substance use: never Substance use type: does not use Living arrangements: alone Occupation/Education: retired Gender identity (if verbalized by the patient): Male Spiritual care concerns: No Exam Narrative: General appearance: Well-developed, well-nourished Skin: Normal color Head: Normocephalic, nontraumatic Eyes: Clear conjunctiva ENT: Oropharynx normal, ears normal, nose normal Neck: Supple, nontender Chest and respiratory: Airway patent, no respiratory distress, no accessory muscle use Heart: Regular rate/rhythm Abdomen: Soft, slight right lower quadrant tenderness, no organomegaly, quiet bowel sounds Vascular: Normal peripheral pulses, normal capillary refill. Musculoskeletal: Normal range of motion, nontender back Neurologic: Alert and oriented ?3, CHURNER is normal as tested, no gross motor deficit Course Course Emergency Course: Improving Reevaluation(s) Reevaluation #1: Currently patient feeling okay, denying any symptoms and ready to go. George
[2022-04-26 18:12] VITALS: BP 148/80; PULSE 78; RESP 17; O2SAT 99
[2022-04-26 19:18] VITALS: BP 175/90; PULSE 72; RESP 16; O2SAT 96
[2022-04-26 20:16] VITALS: BP 167/86
== END 2022-04-26 20:17 | disposition home or self-care (01) ==
PROVIDERS: Emergency Provider Emergency Medicine; PCP Family Medicine
DX: N39.0 Urinary tract infection, site not specified (principal); I12.9 Hypertensive chronic kidney disease with stage 1 through stage 4 chronic kidney disease, or unspecified chronic kidney disease; N18.30 Chronic kidney disease, stage 3 unspecified; E03.9 Hypothyroidism, unspecified; N40.0 Benign prostatic hyperplasia without lower urinary tract symptoms; E07.9 Disorder of thyroid, unspecified; Z85.828 Personal history of other malignant neoplasm of skin; Z87.891 Personal history of nicotine dependence; K29.70 Gastritis, unspecified, without bleeding; K20.90 Esophagitis, unspecified without bleeding
CPT/HCPCS: 36415; 74177; 80053; 81001; 83690; 85025; 87086; 87088; 96365; 99284; J0696; Q9967

== ENCOUNTER 2022-07-02 09:14 | Emergency (ER) | payer MEDICARE, OTHER, SELFPAY ==
--- NOTE | ~2022-07-02 | XR_ITS ---
EXAMINATION: XR ribs RT 2V w CXR 2V DATE: 07/02/2022 11:42 INDICATION: Right-sided rib pain TECHNIQUE: PA and lateral views of the chest and 3 views of the right ribs were obtained. COMPARISON: Chest radiograph dated 11/11/2021, 05/18/[address] dated 04/26/2022 FINDINGS: Chronic mildly displaced fractures of the anterior right sixth and 10th ribs which appeared subacute with callus formation at the time of prior CT dated 04/26/2022. No new rib fractures identified. Mild thoracic kyphosis with age-indeterminate compression fracture of a midthoracic vertebral body, likely T7 with approximately 50% anterior vertebral body height loss. Moderate thoracic spondylosis. There are increased lucencies and architectural distortion in the upper lungs consistent with emphysema. Pe ripheral and lower lung predominant coarse reticular opacities consistent with chronic interstitial l cristofer disease with usual interstitial pneumonia (UIP) pattern on prior CT. No pleural effusion or pneum othorax. Mild cardiomegaly. Tortuous thoracic aorta. Cholecystectomy clips in right upper quadrant. IMPRESSION: 1. Chronic healing fractures of the anterior right 6th and 10th ribs. No acute rib fractures identifi ed. 2. Age indeterminate mid thoracic compression fracture, likely T7 with 50% anterior vertebral body he ight loss. 3. Emphysema with superimposed UIP pattern chronic interstitial lung disease. Difficult to exclude dominguez perimposed pneumonia or pulmonary edema in the lower lung zones. 4. Mild cardiomegaly. Reviewed, dictated and finalized at location A. IMPRESSION: 1. Chronic healing fractures of the anterior right 6th and 10th ribs. No acute rib fractures identified. 2. Age indeterminate mid thoracic compression fracture, likely T7 with 50% ante rior vertebral body height loss. 3. Emphysema with superimposed UIP pattern chronic interstitial lung disease. D ifficult to exclude superimposed pneumonia or pulmonary edema in the lower lung zones. 4. Mild cardiomegaly.
--- NOTE | ~2022-07-02 | XR_ITS ---
Thoracic spine: Clinical Indication: Back pain AP and lateral views were performed. Findings: Compression deformity of T7 noted.. The intervertebral disc spaces appear normal. Paraverte bral soft tissues appear normal. Bibasilar pulmonary chronic interstitial disease present. Impression: T7 compression deformity, age-indeterminate. Bibasilar chronic pulmonary interstitial disease. Reviewed, dictated and finalized at [facility]. Impression: T7 compression deformity, age-indeterminate. Bibasilar chronic pulmonary interstitial disease.
--- NOTE | ~2022-07-02 | XR_ITS ---
Lumbosacral Spine: AP, oblique, and lateral views Clinical History: Pain Findings: The normal lordotic curve is maintained. No fracture or subluxation seen. There is advanced degenerative disc narrowing at L2-L3, L4-L5. There is mild degenerative disc change at the remaining lumbar levels. There is moderate to advanced facet joint arthropathy throughout the lumbar spine, wo rst at the lower lumbar spine. The sacroiliac joints are normally outlined. Impression: Moderate degenerative spondylosis, as above. Reviewed, dictated and finalized at location M. Impression: Moderate degenerative spondylosis, as above.
[2022-07-02 09:17] VITALS: BP 142/92; PULSE 95; RESP 18; TEMP 37; O2SAT 94
--- NOTE | 2022-07-02 11:31 | ED.BACK ---
HPI - Back Pain/Injury General Chief Complaint: Back Pain/Injury Stated Complaint: mid back pain Time Seen by Provider: 07/02/22 11:05 History of Present Illness HPI Narrative: Patient is an 81-year-old male here for evaluation of back pain x2 weeks. Patient states that the pain came on after he lifted a heavy object. The pain has been persistent since, worse with certain positions and when he coughs. Pain is present in his mid back and he also has some right-sided rib pain. He denies any direct trauma to the back. He has had no incontinence or retention of bowel or bladder, saddle anesthesia. Related Data Home Medications Medication Instructions Recorded Confirmed finasteride 5 mg tablet 5 mg PO QAM 07/03/20 04/28/22 amoxicillin 875 mg-potassium 1 tablet PO BID 04/28/22 clavulanate 125 mg tablet Allergies Allergy/AdvReac Type Severity Reaction Status Date / Time NSAIDS (Non-Steroidal AdvReac Severe AVOIDANCE Verified 07/02/22 11:10 Anti-Inflamma RELATED TO RENAL DISEASE levofloxacin [From Levaquin] AdvReac Mild Itching Verified 07/02/22 11:10 Review of Systems Review of Systems: Gen: Denies fevers or chills Eyes: Denies eye pain or visual change ENT: Denies congestion Respiratory: Denies shortness of breath or cough CV: Denies chest pain or palpitations GI: Denies abdominal pain nausea, emesis or diarrhea : denies burning, urgency, frequency or hematuria Musculoskeletal: Denies back pain or muscle pain Neuro: Denies numbness, tingling, weakness or focal weakness Skin: Denies rash Except as documented, all other systems reviewed and negative [facility] Past Medical History Medical History AAA (abdominal aortic aneurysm) BPH (benign prostatic hyperplasia) CKD (chronic kidney disease), stage III Hy kid NOS w cr kid I-IV Hypertension Hypothyroidism Kidney disease No pertinent family history Thyroid disorder Surgical History Surgical History History of appendectomy 1960 History of cholecystectomy 2008 History of right inguinal hernia repair with 6cm Parietex hernia mesh system 04/27/2019 07/16/2020 Repair recurrent right inguinal hernia with 8 cm Parietex hernia mesh system History of tonsillectomy 194 Hx of arthroscopy of left knee Hx of arthroscopy of right knee 1991 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 Other Unknown family medical history Social History Social History Smoking packs per day: 0.75 Smoking cigarettes per day: 15.0 Years smoked: 36 Smoking pack-years: 27.00 Smoking status: Former smoker Tobacco type: cigarettes Second hand tobacco smoke exposure: No Smoking end date: 11/21/05 Additional smoking assessment comments: STATES 3/4-1PK/DAY/25YRS, QUIT 2004 Alcohol intake: never Substance use: never Substance use type: does not use Living arrangements: alone Occupation/Education: retired Gender identity (if verbalized by the patient): Male Spiritual care concerns: No Course Vital Signs Vital signs: Vital Signs Temperature 98.6 F 07/02/22 09:17 Pulse Rate 95 07/02/22 09:17 Respiratory Rate 18 07/02/22 09:17 Blood Pressure 142/92 H 07/02/22 09:17 Pulse Oximetry 94 07/02/22 09:17 Oxygen Delivery Room Air 07/02/22 09:17 Temperature 98.6 F 07/02/22 09:17 Pulse Rate 72 07/02/22 12:49 Respiratory Rate 17 07/02/22 12:49 Blood Pressure 167/95 H 07/02/22 12:49 Pulse Oximetry 97 07/02/22 12:49 Oxygen Delivery Room Air 07/02/22 09:17 MDM - Back Pa
[2022-07-02] MEDS: HYDROcodone/acetaminophen (*CRX) 5-325 MG TABLET 1 TAB PO (11:43)
[2022-07-02] MEDS: LIDOCAINE 5% PATCH 1 PATCH TRANSDERM (11:43)
[2022-07-02 12:49] VITALS: BP 167/95; PULSE 72; RESP 17; O2SAT 97
[2022-07-02 13:01] LABS: Basophils Absolute Auto 0.1 K/mm3 (0.0-0.1); Basophils Percent Auto 0.7 % (0.2-1.2); Eosinophils Absolute Auto 0.1 K/mm3 (0-0.3); Eosinophils Percent Auto 1.1 % (0-4.4); Hematocrit 43.3 % (42.0-52.0); Hemoglobin 14.2 g/dL (14.0-18.0); Immature Granulocyte Absolute 0.03 K/mm3 (0.00-0.031); Immature Granulocyte Percent A 0.4 % (0-0.5); Lymphocytes Absolute Auto 1.41 K/mm3 (0.9-3.2); Lymphocytes Percent Auto 16.7 % (18.3-44.2); Mean Corpuscular HGB Conc 32.8 g/dl (32-36); Mean Corpuscular Hemoglobin 33.4 pg (26-34); Mean Corpuscular Volume 101.9 fl (80-100); Mean Platelet Volume 9.1 fl (7.4-10.4); Monocytes Absolute Auto 0.5 K/mm3 (0.1-0.6); Monocytes Percent Auto 6.2 % (2.6-8.5); Neutrophils Absolute Auto 6.3 K/mm3 (1.3-6.7); Neutrophils Percent Auto 74.9 % (45.5-73.1); Platelet Count Result 262 k/mm3 (150-375); Red Blood Count 4.25 M/mm3 (4.6-6.20); Red Cell Distribution Width 13.1 % (11.5-14.5); White Blood Count 8.4 K/mm3 (4.5-10.0)
[2022-07-02 13:16] LABS: Anion Gap 6 mmol/L (8-16); Blood Urea Nitrogen 25 mg/dL (9-20); Calcium 9.4 mg/dL (8.4-10.2); Carbon Dioxide 26 mmol/L (22-30); Chloride 102 mmol/L (98-107); Estimated CRCL calculation 34 ml/min; Estimated Glomerular Filt Rate 45; Glucose 102 mg/dL (65-110); Potassium 4.3 mmol/L (3.4-5.0); Sodium 134 mmol/L (137-145)
== END 2022-07-02 14:10 | disposition home or self-care (01) ==
PROVIDERS: Emergency Provider Physician Assistant; PCP Family Medicine
DX: S22.060A Wedge compression fracture of T7-T8 vertebra, initial encounter for closed fracture (principal); S22.41XA Multiple fractures of ribs, right side, initial encounter for closed fracture; I12.9 Hypertensive chronic kidney disease with stage 1 through stage 4 chronic kidney disease, or unspecified chronic kidney disease; N18.30 Chronic kidney disease, stage 3 unspecified; E03.9 Hypothyroidism, unspecified; N40.0 Benign prostatic hyperplasia without lower urinary tract symptoms; Z85.828 Personal history of other malignant neoplasm of skin; Z87.891 Personal history of nicotine dependence; M47.816 Spondylosis without myelopathy or radiculopathy, lumbar region; I51.7 Cardiomegaly; J43.9 Emphysema, unspecified; X50.0XXA Overexertion from strenuous movement or load, initial encounter
CPT/HCPCS: 36415; 71046; 71100; 72072; 72110; 80048; 85025; 99283; 99284; A9270

== ENCOUNTER 2022-07-06 07:47 | Outpatient (CLI) | payer MEDICARE, OTHER, SELFPAY ==
[2022-07-06 08:16] LABS: Alanine Aminotransferase 17 U/L (6-50); Albumin Level 4.4 g/dL (3.5-5.1); Alkaline Phosphatase 135 U/L (38-126); Anion Gap 6 mmol/L (8-16); Aspartate Amino Transferase 25 U/L (17-59); Bilirubin,Total 1.1 mg/dL (0.2-1.3); Blood Urea Nitrogen 22 mg/dL (9-20); Calcium 10.1 mg/dL (8.4-10.2); Carbon Dioxide 29 mmol/L (22-30); Chloride 101 mmol/L (98-107); Estimated Glomerular Filt Rate 42; Glucose 107 mg/dL (65-110); Potassium 4.3 mmol/L (3.4-5.0); Sodium 136 mmol/L (137-145)
== END 2022-07-06 07:48 | disposition home or self-care (01) ==
PROVIDERS: PCP Family Medicine; Visit Provider Family Medicine
DX: I12.9 Hypertensive chronic kidney disease with stage 1 through stage 4 chronic kidney disease, or unspecified chronic kidney disease (principal); N18.30 Chronic kidney disease, stage 3 unspecified; E03.9 Hypothyroidism, unspecified
CPT/HCPCS: 36415; 80053; 84443

== ENCOUNTER 2022-07-10 09:39 | Emergency (ER) | payer MEDICARE, OTHER, SELFPAY ==
[2022-07-10] VITALS (19 sets, daily range): BP systolic 145; BP diastolic 79; PULSE 72–92; RESP 15–25; TEMP 36.6; O2SAT 97–98
--- NOTE | ~2022-07-10 | CT_ITS ---
EXAMINATION: CT brain wo con DATE: 07/10/2022 14:54 INDICATION: fall with head injury . TECHNIQUE: Computed tomography (CT) of the head was performed without intravenous contrast. The mA wa s adjusted according to patient size. Iterative reconstruction technique was employed. The dose-lengt h product was 605.33 mGy-cm. COMPARISON: None. FINDINGS: No acute intracranial hemorrhage or extra-axial fluid collection. No hydrocephalus, mass, or herniation. No acute ischemic infarct. Unremarkable dural venous sinus attenuation. No acute osseous abnormality. High midfrontal scalp contusion. The aerated spaces are clear. Mild atrophy and moderate chronic white matter change. Atherosclerotic intracranial calcification. Ol d lacunar infarcts in the right caudate head. IMPRESSION: No acute intracranial process. Reviewed, dictated and finalized at location K.
--- NOTE | ~2022-07-10 | CT_ITS ---
EXAMINATION: CT abdomen pelvis w con DATE: 07/10/2022 11:19 INDICATION: Left upper quadrant abdominal pain. TECHNIQUE: Computed tomography (CT) of the abdomen and pelvis was performed with 100 mL Omnipaque 350 intravenous contrast. Automated exposure control and iterative reconstruction technique were employe d. The dose-length product was 347.00 mGy-cm. COMPARISON: CT abdomen and pelvis 04/26/2022 FINDINGS: The visualized portions of the lung bases demonstrate emphysema and extensive peripheral ho neycombing. No pleural effusion. Cardiomegaly is noted. There are coronary artery calcifications. No pericardial effusion. The liver and spleen are normal. There are changes of cholecystectomy. The panc reas and adrenal glands are normal. There is cortical thinning of the kidneys. There are cysts in the kidneys measuring up to 4.0 cm on the right. There is a 3.2 cm fusiform aneurysm of infrarenal aorta . 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 There is a 1.7 cm fusiform aneury sm of left internal iliac artery. The prostate is moderately enlarged. There is diverticulosis of the colon without evidence of diverticulitis. There are no dilated loops of bowel. The appendix is not v isualized. There is a left inguinal hernia containing fat. There is severe lumbar spondylosis. Lumbar levoscoliosis is noted. IMPRESSION: 1. Emphysema and chronic interstitial lung disease in a pattern of usual interstitial pneumonia (UIP) . 2. 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 3. 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 Reviewed, dictated and finalized at location A. IMPRESSION: 1. Emphysema and chronic interstitial lung disease in a pattern of usual inters titial pneumonia (UIP). 2. 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 3. 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
--- NOTE | 2022-07-10 10:34 | PC.NURSE ---
pt provided with urinal and made aware that we need ua specimen.
[2022-07-10] MEDS: METHYLNALTREXONE 12 MG/0.6 ML VIAL SUB-Q (10:39)
[2022-07-10 10:43] LABS: Basophils Percent Auto 0.3 % (0.2-1.2); Eosinophils Percent Auto 0.3 % (0-4.4); Hematocrit 42.3 % (42.0-52.0); Hemoglobin 14.2 g/dL (14.0-18.0); Immature Granulocyte Absolute 0.04 K/mm3 (0.00-0.031); Immature Granulocyte Percent A 0.3 % (0-0.5); Lymphocytes Absolute Auto 0.91 K/mm3 (0.9-3.2); Lymphocytes Percent Auto 7.8 % (18.3-44.2); Mean Corpuscular HGB Conc 33.6 g/dl (32-36); Mean Corpuscular Hemoglobin 33.8 pg (26-34); Mean Corpuscular Volume 100.7 fl (80-100); Mean Platelet Volume 9.3 fl (7.4-10.4); Monocytes Absolute Auto 0.9 K/mm3 (0.1-0.6); Monocytes Percent Auto 7.6 % (2.6-8.5); Neutrophils Absolute Auto 9.8 K/mm3 (1.3-6.7); Neutrophils Percent Auto 83.7 % (45.5-73.1); Platelet Count Result 253 k/mm3 (150-375); Red Cell Distribution Width 13.4 % (11.5-14.5); White Blood Count 11.7 K/mm3 (4.5-10.0)
[2022-07-10 10:52] LABS: Alanine Aminotransferase 19 U/L (6-50); Albumin Level 4.2 g/dL (3.5-5.1); Alkaline Phosphatase 125 U/L (38-126); Anion Gap 7 mmol/L (8-16); Aspartate Amino Transferase 27 U/L (17-59); Bilirubin,Total 1.3 mg/dL (0.2-1.3); Blood Urea Nitrogen 26 mg/dL (9-20); Calcium 9.5 mg/dL (8.4-10.2); Carbon Dioxide 28 mmol/L (22-30); Chloride 99 mmol/L (98-107); Estimated Glomerular Filt Rate 42; Glucose 114 mg/dL (65-110); Lipase 29 U/L (23-300); Potassium 3.9 mmol/L (3.4-5.0); Sodium 134 mmol/L (137-145)
--- NOTE | 2022-07-10 11:06 | ED.ABDPAIN ---
HPI - Abdominal Pain General Chief Complaint: Abdominal Pain Stated Complaint: abd pain, constipation x4 days Time Seen by Provider: 07/10/22 10:23 History of Present Illness HPI narrative: Patient is an 81-year-old male with a history of recent rib fractures after fall here for evaluation of constipation for the past 4 days. Patient states he has been taking hydrocodone for his rib fractures and he believes this is causing his constipation. He reports a left-sided abdominal pain that comes and goes, described as a cramp. Very mild in nature, not present currently. He denies any nausea, vomiting, diarrhea, fevers or chills. History of inguinal hernia repair. He denies any difficulty breathing, chest pain, back pain. Related Data Home Medications Medication Instructions Recorded Confirmed finasteride 5 mg tablet 5 mg PO QAM 07/03/20 04/28/22 amoxicillin 875 mg-potassium 1 tablet PO BID 04/28/22 clavulanate 125 mg tablet Allergies Allergy/AdvReac Type Severity Reaction Status Date / Time NSAIDS (Non-Steroidal AdvReac Severe AVOIDANCE Verified 07/10/22 09:39 Anti-Inflamma RELATED TO RENAL DISEASE levofloxacin [From Levaquin] AdvReac Mild Itching Verified 07/10/22 09:39 Review of Systems Review of Systems: Gen: Denies fevers or chills Eyes: Denies eye pain or visual change ENT: Denies congestion Respiratory: Denies shortness of breath or cough CV: Denies chest pain or palpitations GI: Reports abdominal pain and constipation denies burning, urgency, frequency or hematuria Musculoskeletal: Denies back pain or muscle pain Neuro: Denies numbness, tingling, weakness or focal weakness Skin: Denies rash Except as documented, all other systems reviewed and negative [facility] Past Medical History Medical History AAA (abdominal aortic aneurysm) BPH (benign prostatic hyperplasia) CKD (chronic kidney disease), stage III Hy kid NOS w cr kid I-IV Hypertension Hypothyroidism Kidney disease No pertinent family history Thyroid disorder Surgical History Surgical History History of appendectomy 1960 History of cholecystectomy 2008 History of right inguinal hernia repair with 6cm Parietex hernia mesh system 04/27/2019 07/16/2020 Repair recurrent right inguinal hernia with 8 cm Parietex hernia mesh system History of tonsillectomy 194 Hx of arthroscopy of left knee Hx of arthroscopy of right knee 1991 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 Other Unknown family medical history Social History Social History Smoking packs per day: 0.75 Smoking cigarettes per day: 15.0 Years smoked: 36 Smoking pack-years: 27.00 Smoking status: Former smoker Tobacco type: cigarettes Second hand tobacco smoke exposure: No Smoking end date: 11/21/05 Additional smoking assessment comments: STATES 3/4-1PK/DAY/25YRS, QUIT 2004 Alcohol intake: never Substance use: never Substance use type: does not use Living arrangements: alone Occupation/Education: retired Gender identity (if verbalized by the patient): Male Spiritual care concerns: No Exam Narrative: APPEARANCE: Well appearing, no pain in distress, well-nourished. Head: Normocephalic and atraumatic. EYES: PERRLA/EOMI, conjunctivae clear NOSE: No nasal drainage EARS: External ear normal in appearance THROAT: Oropharynx is clear. Mucous membranes are moist. NECK: Supple. No adenopathy, no masses. RESPIRATORY: Airway patent, respirations nonlabored. Clear to auscultation bilaterally, no
[2022-07-10 11:45] LABS: Appearance Urine Clear (Clear); Bacteria Urine None Seen /hpf; Bilirubin Urine Negative (Negative); Blood Urine Trace (Negative); Color Urine Yellow (Yellow); Glucose Urine UA Negative (Negative); Ketones Urine Negative (Negative); Leukocyte Esterase Ur Negative LEU/UL (Negative); Nitrate Urine Negative (Negative); Non Pathogenic Casts 0-2; Protein Urine 1+ mg/dL (Negative); RBC Urine 0-2 /hpf (0-2); Squamous Epithelial Cell Urine None seen /hpf (Few); Urobilinogen Urine 0.2 mg/dL (<2.0); WBC Urine 0-5 /hpf
[2022-07-10 11:54] LABS: Specific Grav Ur 1.046 (1.001-1.035)
[2022-07-10 11:55] LABS: Add Urine Microscopic? YES
[2022-07-10] MEDS: MAGNESIUM HYDROXIDE SUSP 30 ML UDC PO (11:55)
[2022-07-10] MEDS: polyethylene glycoL 3350 17 GM POWD.PACK PO (11:55)
[2022-07-10] MEDS: BISACODYL 10 MG SUPPOSITORY RECTAL (11:56)
--- NOTE | 2022-07-10 12:00 | PC.NURSE ---
no bm as of yet. additional meds given. pt resting quietly on stretcher watching tv. call light on bed. advised to contact rn when he needs to use the bathroom.
--- NOTE | 2022-07-10 14:38 | PC.NURSE ---
called to pts room to provide an ice bag for pt head. pt states he walked across the [place] to use the bathroom and fell forward off the commode because the cardiac monitors got caught. states fell striking his head on the ground. contusion noted to right medial forehead. pt questioned why he didnt use call light to notify staff that he had to use the bathroom. pt states i had already been going . family at bedside. fall report made. 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
--- NOTE | 2022-07-10 16:52 | PC.NURSE ---
pt assisted to bedside commode.
== END 2022-07-10 17:15 | disposition home or self-care (01) ==
PROVIDERS: Emergency Medicine; Emergency Provider Physician Assistant; PCP Family Medicine
DX: K59.00 Constipation, unspecified (principal); N40.0 Benign prostatic hyperplasia without lower urinary tract symptoms; I12.9 Hypertensive chronic kidney disease with stage 1 through stage 4 chronic kidney disease, or unspecified chronic kidney disease; N18.30 Chronic kidney disease, stage 3 unspecified; I71.43 Infrarenal abdominal aortic aneurysm, without rupture; E03.9 Hypothyroidism, unspecified; E07.9 Disorder of thyroid, unspecified; Z85.828 Personal history of other malignant neoplasm of skin; Z87.891 Personal history of nicotine dependence; J43.9 Emphysema, unspecified; I72.3 Aneurysm of iliac artery
CPT/HCPCS: 36415; 70450; 74177; 80053; 81001; 83690; 85025; 96372; 99284; A9270; J2212; Q9967

== ENCOUNTER 2022-09-04 15:15 | Outpatient (CLI) | payer MEDICARE, OTHER, SELFPAY ==
--- NOTE | ~2022-09-04 | XR_ITS ---
EXAMINATION: XR lumbar spine 2-3V DATE: 09/04/2022 15:39 INDICATION: Low back pain TECHNIQUE: Anteroposterior and lateral views of the lumbar spine, and cone-down lateral view of the l umbosacral junction were obtained. COMPARISON: 07/02/2022 FINDINGS: Again seen is a mild S-shaped curvature of the lumbar and lower thoracic spine. Sagittal alignment is normal. Vertebral body heights are normal. Moderate diffuse disc height loss at L4-L5, moderate to s evere left-sided predominant disc height loss at L2-L3 and right-sided predominant disc height loss a t L3-L4. Mild disc height loss at L1-L2. Moderate to severe facet osteoarthritis in the mid and lower lumbar spine. Is also moderate bilateral sacroiliac osteoarthritis. Cholecystectomy clips in right u pper quadrant. IMPRESSION: 1. Severe lumbar spondylosis. Reviewed, dictated and finalized at location A.
== END 2022-09-04 15:16 | disposition home or self-care (01) ==
PROVIDERS: PCP Family Medicine; Visit Provider Physician Assistant
DX: M54.50 Low back pain, unspecified (principal); M43.06 Spondylolysis, lumbar region
CPT/HCPCS: 72100

== ENCOUNTER 2022-09-07 14:58 | Outpatient (CLI) | payer MEDICARE, OTHER, SELFPAY ==
--- NOTE | ~2022-09-07 | MR_ITS ---
EXAMINATION: MR thoracic spine wo con DATE: 09/07/2022 15:46 INDICATION: Wedge compression fracture of the thoracic spine TECHNIQUE: Magnetic resonance imaging (MRI) of the thoracic spine was performed without intravenous c ontrast. Sagittal localizer T1-weighted FSE of the cervicothoracic spine was obtained. Thoracic spine sequences included sagittal T2-weighted FSE, sagittal T1-weighted SE, sagittal fluid sensitive FSE S TIR, Sagittal T2-weighted FS FSE, and axial T2-weighted FSE. COMPARISON: Thoracic spine radiographs dated 07/02/2022 FINDINGS: Mild kyphosis in the midthoracic spine with T7 and T9 burst fractures. The T7 burst fracture was alre lestre present at the time of the prior radiographs but has been progression of now 80%, previously 40% anterior vertebral body height loss. There is also increase in degree of posterior vertebral body hei ght loss, previously 10%, now 20%. 3 mm retropulsion. A second burst fracture of T9 with relatively d iffuse 20% vertebral body height loss, new since the prior study and with 1 mm retropulsion. There is prominent increased T2 and decreased T1 marrow signal throughout the T9 vertebral body and extending to the pedicles which could be related to edema although the extent and degree of T1 signal loss ballesteros s raise some concern for neoplasm. Chronic minimal anterior wedging at T10 and T11. Minimal marrow ed aubrie associated with a small Schmorl's node along the inferior margin of L1. T1 and T2 hyperintense he mangioma at T2 and T6 in the posterior left sixth rib. There is edema in the posterior paraspinal sof t tissues from T7 through T9 likely related to the increasing kyphosis related to the progression of the burst fractures. There is edema in the T8 spinous process surrounding a linear low signal intensi ty likely nondisplaced fracture line. Severe spondylosis of the lower cervical spine. There is multilevel mild disc height loss throughout the thoracic spine. In addition to mild central canal stenosis resulting from the retropulsion at T7 there is additional to multilevel mild central canal stenosis related to disc bulges and small disc p rotrusions at the majority phleboliths from T2-T3 through T10-T11. Moderate to severe multilevel bila teral thoracic facet osteoarthritis. This contributes to moderate neural foraminal stenosis on the le ft at T7-T8 and T8-T9 and on the right at T7-T8 and T9-T10. Mild neural foraminal stenosis at the aniya ority remaining thoracic levels bilaterally. There is normal spinal cord signal. The conus terminates at L1. 4.1 cm T2 hyperintense left renal cyst. IMPRESSION: 1. Recent T7 and T9 burst fractures with increasing vertebral body height loss since 2 months prior. Associated T1 signal loss within the vertebral bodies appears greater and more diffusely homogeneous than typical and which does raise some concern for possible underlying metastatic disease. Could cons ider bone scan for further evaluation to assess for any additional bone lesions which would be expect ed in the setting of metastatic disease. 2. Soft tissue edema in the posterior paraspinal soft tissues region of the burst fracture with sugge stion of a fracture across the spinous process of T8 which could be related to the increasing kyphosi s resulting from the previous fractures. 3. Mild to moderate thoracic and severe lower cervical spondylosis. Reviewed, dictated and finalized at location B. IMPRESSION: 1. Recent T7 and T9 burst fractures with increasing vertebral body height loss since 2 months prior. Associated T1 signal loss within the vertebral bodies chris ears greater and more diffusely homogeneous than typical and which does raise s ome concern for possible underlying metastatic disease. Could consider bone sca n for further evaluation to assess for any ad
== END 2022-09-07 14:59 | disposition home or self-care (01) ==
PROVIDERS: PCP Family Medicine; Visit Provider Family Medicine
DX: S22.000A Wedge compression fracture of unspecified thoracic vertebra, initial encounter for closed fracture (principal); X58.XXXA Exposure to other specified factors, initial encounter; M47.892 Other spondylosis, cervical region; M47.894 Other spondylosis, thoracic region
CPT/HCPCS: 72146

== ENCOUNTER 2022-09-10 06:12 | Emergency (ER) | payer MEDICARE, OTHER, SELFPAY ==
[2022-09-10] VITALS (11 sets, daily range): BP systolic 147–152; BP diastolic 92–95; PULSE 70–99; RESP 13–26; TEMP 36.8; O2SAT 90–100
--- NOTE | ~2022-09-10 | CT_ITS ---
EXAMINATION: CT abdomen pelvis w con DATE: 09/10/2022 08:04 INDICATION: Constipation TECHNIQUE: Computed tomography (CT) of the abdomen and pelvis was performed with 100 mL Omnipaque-350 intravenous contrast. Automated exposure control and iterative reconstruction technique were employe d. The dose-length product was 379.64 mGy-cm. COMPARISON: 07/10/2022 FINDINGS: Emphysema along with peripheral coarse septal line thickening and honeycombing at the bilateral lung bases consistent with usual interstitial pneumonia (UIP) pattern chronic interstitial lung disease. A few scattered calcified pulmonary nodules along with calcified right hilar lymph nodes consistent wi th old granulomatous disease. Heart size is normal. Atherosclerotic coronary artery calcification. No pericardial or pleural effusion. A few scattered hepatic calcifications also consistent with old gra nulomatous disease. Cholecystectomy clips at gallbladder fossa. Spleen, pancreas and bilateral adrena l glands are normal. Bilateral renal cysts, the largest on the left measuring 4.0 cm. Large amount of stool in the proximal colon. The more distal colon is relatively decompressed with multiple divertic reynaldo. No surrounding inflammation presenting to suggest diverticulitis. No bowel obstruction. Bladder is normal. Prostatomegaly measuring 5.5 x 4.2 cm . No free intraperitoneal gas or fluid. No pathologi juwan enlarged abdominal or pelvic lymphadenopathy. Tortuous and ectatic abdominal aorta with 2 short segments of relative dilation up to 3.2 cm in diameter in the infrarenal aorta. There is also focal saccular dilation of the proximal most right common iliac artery to maximal diameter of 2.8 x 2.8 cm in maximal diameter and fusiform dilation of the proximal left internal iliac artery to 1.6 cm in max imal diameter. Severe lumbar spondylosis. IMPRESSION: 1. Large amount of stool in the proximal colon consistent with provided history of constipation. No o ther acute intra-abdominal/pelvic process. 2. Emphysema and UIP pattern chronic interstitial lung disease. 3. Aortoiliac ectasia. Reviewed, dictated and finalized at location L. IMPRESSION: 1. Large amount of stool in the proximal colon consistent with provided history of constipation. No other acute intra-abdominal/pelvic process. 2. Emphysema and UIP pattern chronic interstitial lung disease. 3. Aortoiliac ectasia.
--- NOTE | 2022-09-10 07:23 | ED.ABDPAIN ---
HPI - Abdominal Pain General Chief Complaint: Abdominal Pain Stated Complaint: constipation Time Seen by Provider: 09/10/22 06:57 History of Present Illness HPI narrative: 81-year-old male presented the ED for evaluation of 4 days of constipation and upper abdominal pain. Patient states he has never had any surgeries on his belly but states over the last 4 days he has had increased issues with constipation. Patient has been attempting to take medications at home to help with this but states he has not been passing stool and states he has not been passing flatus either. Patient states he does have some upper abdominal pain. Patient reports he does have outpatient surgery scheduled on his back for Wednesday. Related Data Home Medications Medication Instructions Recorded Confirmed finasteride 5 mg tablet 5 mg PO QAM 07/03/20 09/04/22 Allergies Allergy/AdvReac Type Severity Reaction Status Date / Time NSAIDS (Non-Steroidal AdvReac Severe AVOIDANCE Verified 09/04/22 14:27 Anti-Inflamma RELATED TO RENAL DISEASE levofloxacin [From Levaquin] AdvReac Mild Itching Verified 09/04/22 14:27 Review of Systems Review of Systems: All systems reviewed & are unremarkable except as noted in HPI and below PMFSH Past Medical History Medical History AAA (abdominal aortic aneurysm) BPH (benign prostatic hyperplasia) CKD (chronic kidney disease), stage III Hy kid NOS w cr kid I-IV Hypertension Hypothyroidism Iliac aneurysm Kidney disease No pertinent family history Thyroid disorder Surgical History Surgical History History of appendectomy 1960 History of cholecystectomy 2008 History of right inguinal hernia repair with 6cm Parietex hernia mesh system 04/27/2019 07/16/2020 Repair recurrent right inguinal hernia with 8 cm Parietex hernia mesh system History of tonsillectomy 1940 Hx of arthroscopy of left knee Hx of arthroscopy of right knee 1991 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 Other Unknown family medical history Social History Social History Smoking packs per day: 0.75 Smoking cigarettes per day: 15.0 Years smoked: 36 Smoking pack-years: 27.00 Smoking status: Former smoker Tobacco type: cigarettes Second hand tobacco smoke exposure: No Smoking end date: 11/21/05 Additional smoking assessment comments: STATES 3/4-1PK/DAY/25YRS, QUIT 2004 Alcohol intake: never Substance use: never Substance use type: does not use Living arrangements: alone Occupation/Education: retired Gender identity (if verbalized by the patient): Male Spiritual care concerns: No Exam Narrative: APPEARANCE: Well appearing, no pain, no distress, well-nourished. HEAD: normocephalic, atraumatic. EYES: PERRLA/EOMI, conjunctivae clear. NOSE: Normal no drainage NECK: Supple. No adenopathy, no masses. RESPIRATORY: Airway patent, respirations nonlabored. Clear to auscultation bilaterally, no rales, rhonchi, wheezing. CARDIOVASCULAR: Regular rate and rhythm without murmurs rubs or gallops. ABDOMINAL: Soft, nondistended, upper abdominal tenderness to palpation MUSCULOSKELETAL: Moves all extremities. Strength/ROM intact, No edema, No calf tenderness. NEURO: Alert. Cranial nerves II through XII intact. Grossly intact SKIN: Warm, dry. Normal Color Course Course Emergency Course: 81-year-old male presenting to the ED for evaluation of abdominal pain. Patient did request medication for pain control patient was treated with 50 mcg of fentanyl along with 1 L of normal saline. C
--- NOTE | 2022-09-10 07:25 | PC.NURSE ---
Patient report received from VILMA Carlos. All questions answered and care of patient assumed.
[2022-09-10 07:36] LABS: Alanine Aminotransferase 18 U/L (6-50); Albumin Level 3.8 g/dL (3.5-5.1); Alkaline Phosphatase 125 U/L (38-126); Anion Gap 6 mmol/L (8-16); Aspartate Amino Transferase 32 U/L (17-59); Blood Urea Nitrogen 31 mg/dL (9-20); Calcium 9.5 mg/dL (8.4-10.2); Carbon Dioxide 29 mmol/L (22-30); Chloride 101 mmol/L (98-107); Estimated CRCL calculation 31 ml/min; Estimated Glomerular Filt Rate 39; Glucose 112 mg/dL (65-110); Potassium 4.5 mmol/L (3.4-5.0); Sodium 136 mmol/L (137-145)
[2022-09-10 07:37] LABS: Lactic Acid Reflex 1.2 mmol/L (0.7-2.0)
[2022-09-10] MEDS: SODIUM CHLORIDE 0.9% IV 1,000 ML 500 ML IV CONT (07:38)
[2022-09-10] MEDS: fentaNYL CITRATE INJ (*CRX) 100 MCG/2 ML VIAL 50 MCG IV PUSH (07:38)
[2022-09-10 07:40] LABS: Basophils Percent Auto 0.4 % (0.2-1.2); Eosinophils Percent Auto 0.5 % (0-4.4); Hematocrit 42.2 % (42.0-52.0); Hemoglobin 13.9 g/dL (14.0-18.0); Immature Granulocyte Absolute 0.04 K/mm3 (0.00-0.031); Immature Granulocyte Percent A 0.5 % (0-0.5); Lymphocytes Percent Auto 8.5 % (18.3-44.2); Mean Corpuscular HGB Conc 32.9 g/dl (32-36); Mean Corpuscular Hemoglobin 34.4 pg (26-34); Mean Corpuscular Volume 104.5 fl (80-100); Mean Platelet Volume 9.2 fl (7.4-10.4); Monocytes Absolute Auto 0.5 K/mm3 (0.1-0.6); Monocytes Percent Auto 5.6 % (2.6-8.5); Neutrophils Percent Auto 84.5 % (45.5-73.1); Platelet Count Result 227 k/mm3 (150-375); Red Blood Count 4.04 M/mm3 (4.6-6.20); Red Cell Distribution Width 14.5 % (11.5-14.5); White Blood Count 8.3 K/mm3 (4.5-10.0)
--- NOTE | 2022-09-10 07:47 | PC.NURSE ---
Patient off unit to CT>
[2022-09-10 08:09] LABS: Appearance Urine Clear (Clear); Bilirubin Urine Negative (Negative); Blood Urine 1+ (Negative); Color Urine Yellow (Yellow); Glucose Urine UA Trace mg/dL (Negative); Ketones Urine Negative (Negative); Leukocyte Esterase Ur Negative LEU/UL (Negative); Nitrate Urine Negative (Negative); Protein Urine 2+ mg/dL (Negative); Specific Grav Ur >= 1.030 (1.001-1.035); Urobilinogen Urine 0.2 mg/dL (<2.0); pH Urine 6.5 (5.0-9.0)
[2022-09-10 08:26] LABS: Add Urine Microscopic? YES; Bacteria Urine None Seen /hpf; Hyaline Casts Urine Present /lpf; RBC Urine 0-2 /hpf (0-2); Squamous Epithelial Cell Urine Few /hpf (Few); WBC Urine 0-5 /hpf
== END 2022-09-10 09:37 | disposition home or self-care (01) ==
PROVIDERS: Emergency Provider Emergency Medicine; PCP Family Medicine
DX: K59.00 Constipation, unspecified (principal); I12.9 Hypertensive chronic kidney disease with stage 1 through stage 4 chronic kidney disease, or unspecified chronic kidney disease; N18.30 Chronic kidney disease, stage 3 unspecified; E03.9 Hypothyroidism, unspecified; Z87.891 Personal history of nicotine dependence
CPT/HCPCS: 36415; 74177; 80053; 81001; 83605; 85025; 96361; 96374; 99284; J3010; J7030; Q9967

== ENCOUNTER 2022-09-21 06:30 | Emergency (ER) | payer MEDICARE, OTHER, SELFPAY ==
--- NOTE | ~2022-09-21 | CT_ITS ---
EXAMINATION: CT brain wo con DATE: 09/21/2022 08:18 INDICATION: Head injury. TECHNIQUE: Computed tomography (CT) of the head was performed without intravenous contrast. The mA wa s adjusted according to patient size. Iterative reconstruction technique was employed. The dose-lengt h product was 605.33 mGy-cm. COMPARISON: Head CT 07/10/2022 FINDINGS: There are scattered areas of low attenuation in the cerebral white matter. There are old la cunar infarcts in the right caudate nucleus. There is no intracranial hemorrhage, acute infarction, o r abnormal intracranial mass lesion. The ventricles are normal in size. There is mild mucosal thicken ing in the paranasal sinuses. The orbits are normal. There is a small left mastoid effusion. IMPRESSION: 1. 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 2. Stable moderate nonspecific cerebral white matter disease, which likely represents chronic small v essel ischemic disease. Reviewed, dictated and finalized at location A. IMPRESSION: 1. 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 2. Stable moderate nonspecific cerebral white matter disease, which likely repr esents chronic small vessel ischemic disease.
--- NOTE | ~2022-09-21 | XR_ITS ---
Clinical Indication: Weakness, status post fall AP and lateral views of the chest: Comparison: 07/02/2022 Findings: Extensive chronic interstitial disease, basilar and peripheral distribution is again presen t.. Cardiomediastinal silhouette is within normal limits. There is new or worsened compression fract ure at what is probably T9. There is also probable worsening, severe compression fracture at what is probably T7.. Impression: Compression fractures of probably T7 and T9, which are new/worsened from prior exam. Extensive chronic interstitial disease, similar to prior exam. Reviewed, dictated and finalized at location M. Impression: Compression fractures of probably T7 and T9, which are new/worsened from prior exam. Extensive chronic interstitial disease, similar to prior exam.
--- NOTE | ~2022-09-21 | CT_ITS ---
Noncontrast CT scan of the thoracolumbar spine CLINICAL HISTORY: Status post fall TECHNIQUE: Axial noncontrast imaging of the thoracolumbar spine was performed. Sagittal and coronal r eformatted images were constructed. Dose reduction technique was used on this scan by utilizing autom ated exposure control and iterative reconstruction technique. The dose-length product (DLP) was 1114. 56 mGy-cm. FINDINGS: There is severe compression fracture of T7, and moderate compression fracture of T9. These are similar appearance as compared to recent MR dated 09/07/2022. There is probable linear nondisplaced fracture the spinous process of T8. No other fracture or subluxation identified in the thoracolumbar spine. There is severe degenerative disc narrowing at and L2-L3 and L4-L5. There is moderate degenerative di sc narrowing at L3-L4. There is also moderate to advanced degenerative disc change at T7-T8, T8-T9, a nd T9-T10. Remaining disc spaces are relatively well-preserved. No spinal canal stenosis or cord compression evident in the thoracic spine. At L1-L2, there is mild disc bulge and mild facet arthropathy. No kim central canal stenosis. Proba ble mild bilateral neural foraminal narrowing. At L2-L3, there is disc bulge and facet arthropathy, with probable mild central canal stenosis. There is moderate to severe bilateral neural foraminal narrowing. At L3-L4, there is disc bulge and facet arthropathy with probable moderate central canal stenosis/the garrett sac compression. There is severe right neural foraminal narrowing and moderate to severe left nya ral foraminal narrowing. At L4-L5, disc bulge and facet arthropathy are present, with probable moderate to severe central kiesha l stenosis. There is severe right neural foraminal narrowing and moderate to severe left neural patrick inal narrowing. At L5-S1, there is disc bulge and severe facet arthropathy. Possible mild central canal stenosis. The re is moderate to advanced bilateral neural foraminal narrowing. Severe emphysema and possible chronic bibasilar interstitial pulmonary disease are noted. There is a saccular appearing aneurysm extending from the inferior aspect of the aortic arch, measuring approxim ately 3 cm in diameter. There is focal aneurysmal dilatation of the very distal abdominal aorta to 3. 1 cm. Impression: Severe compression fracture of T7, and moderate compression fracture T9, essentially unchanged as com pared to MR dated 09/07/2022. Probable linear, nondisplaced fracture of the spinous process of T8. Moderate to severe degenerative spondylosis of the lumbar spine, as detailed above. Advanced emphysema with probable bibasilar chronic interstitial disease. 3 cm saccular aneurysm extending from the inferior aspect of the aortic arch. 3.1 cm infrarenal abdominal aortic aneurysm at the very distal abdominal aorta. Reviewed, dictated and finalized at location . Impression: Severe compression fracture of T7, and moderate compression fracture T9, essent ially unchanged as compared to MR dated 09/07/2022. Probable linear, nondisplaced fracture of the spinous process of T8. Moderate to severe degenerative spondylosis of the lumbar spine, as detailed ab ove. Advanced emphysema with probable bibasilar chronic interstitial disease. 3 cm saccular aneurysm extending from the inferior aspect of the aortic arch. 3.1 cm infrarenal abdominal aortic aneurysm at the very distal abdominal aorta.
--- NOTE | ~2022-09-21 | CT_ITS ---
Noncontrast CT scan of the cervical spine Technique: Multiple contiguous axial [address] images of the cervical spine were obtained and rec onstructed in 2D sagittal and coronal planes on the acquisition scanner. Dose reduction technique was used on this scan by utilizing automated exposure control, adjustment of the mA and/or kV according to patient size. The dose-length product (DLP) was 199.48 mGy-cm. Clinical History: Status post fall Findings: No acute fracture identified. Minimal grade 1 anterolisthesis of C4 over C5 noted. There is 3 mm retrolisthesis of C5 over C6. There is severe degenerative disc narrowing C5-C6 and C6-C7, with uncovertebral degenerative changes at these levels. There is right-sided neural foraminal narrowing at C2-C3, prominent right-sided facet arthropathy at this level. There is severe left neural foraminal narrowing at C3-C4, severe left-sided facet arthropathy and lef t foraminal disc osteophyte complex. There is bilateral neural foraminal narrowing at C4-C5, with advanced bilateral facet arthropathy pre sent. There is bilateral neural foraminal narrowing at C5-C6, with disc osteophyte complex and bilateral fa cet arthropathy. Possible mild canal stenosis at C5-C6. There is disc osteophyte complex and facet arthropathy bilaterally at C6-C7, with mild bilateral neur al foraminal narrowing. No prevertebral soft tissue swelling. Advanced emphysema noted at the visualized lung apices. Impression: No fracture. Minimal grade 1 anterolisthesis of C4 over C5. 3 mm retrolisthesis of C5 over C6. Moderate degenerative spondylosis, as detailed above, with multilevel neural foraminal narrowing and extensive facet arthropathy. Reviewed, dictated and finalized at [facility]. Impression: No fracture. Minimal grade 1 anterolisthesis of C4 over C5. 3 mm retrolisthesis of C5 over C6. Moderate degenerative spondylosis, as detailed above, with multilevel neural fo raminal narrowing and extensive facet arthropathy.
--- NOTE | ~2022-09-21 | XR_ITS ---
XR hip LT 2V w AP pelvis DATE: 09/21/2022 08:34 INDICATION: Fall. Shortened left leg. Unable to bear weight. TECHNIQUE: AP pelvis. AP and crosstable lateral views of left hip. COMPARISON: 09/10/2022 CT abdomen pelvis FINDINGS: Since 09/10/2022 there is a left subcapital femoral neck fracture with anterior and superolat eral displacement of the distal fragment and varus deformity. Normal alignment at the pubic symphysis and sacroiliac joints. No pelvic fracture or bone destruction is detected. Hip joint spaces are symmetric and relatively preserved. There is dextroscoliosis and multilevel degenerative disc disease of the lumbar spine. IMPRESSION: Left subcapital femoral neck fracture, new since 09/11/2019. Reviewed, dictated and finalized at location B.
--- NOTE | ~2022-09-21 | XR_ITS ---
EXAMINATION: XR knee LT 3V DATE: 09/21/2022 08:35 INDICATION: Left knee pain. TECHNIQUE: 3 views of left knee were obtained. COMPARISON: None. FINDINGS: Bone alignment is normal. No fracture. There is moderate osteoarthritis of medial compartme nt and mild osteoarthritis of lateral and patellofemoral compartments. No knee joint effusion. IMPRESSION: 1. Moderate left knee osteoarthritis. Reviewed, dictated and finalized at location A.
--- NOTE | ~2022-09-21 | XR_ITS ---
EXAMINATION: XR tibia fibula LT 2V DATE: 09/21/2022 08:35 INDICATION: Left lower leg pain. TECHNIQUE: 2 views of left tibia and fibula on 4 radiographs were obtained. COMPARISON: None. FINDINGS: Bone alignment is normal. No fracture. There is moderate osteoarthritis of medial compartme nt of the knee and mild osteoarthritis of lateral and patellofemoral compartments of the knee. No kne e joint effusion. IMPRESSION: 1. Moderate left knee osteoarthritis. Reviewed, dictated and finalized at location A.
[2022-09-21 06:36] VITALS: BP 153/78; PULSE 78; RESP 27; TEMP 37; O2SAT 100
--- NOTE | 2022-09-21 06:40 | ECG_ITS ---
Measurements Intervals [place] Rate: 74 P: 38 WV: 168 QRS: -8 QRSD: 98 T: 31 QT: 372 QTc: 413 Interpretive Statements SINUS RHYTHM POSSIBLE LEFT ATRIAL ENLARGEMENT BORDERLINE ECG COMPARED TO ECG 11/05/2021 23:31:59 SINUS RHYTHM NOW PRESENT Electronically Signed On 09-21-2022 6:59:52 CDT by Joe Beaulieu D.O.
[2022-09-21 06:55] LABS: Basophils Percent Auto 0.5 % (0.2-1.2); Eosinophils Absolute Auto 0.1 K/mm3 (0-0.3); Eosinophils Percent Auto 1.1 % (0-4.4); Hematocrit 44.7 % (42.0-52.0); Immature Granulocyte Absolute 0.06 K/mm3 (0.00-0.031); Immature Granulocyte Percent A 0.7 % (0-0.5); Lymphocytes Absolute Auto 1.17 K/mm3 (0.9-3.2); Lymphocytes Percent Auto 14.5 % (18.3-44.2); Mean Corpuscular HGB Conc 33.6 g/dl (32-36); Mean Corpuscular Hemoglobin 34.9 pg (26-34); Mean Platelet Volume 9.3 fl (7.4-10.4); Monocytes Absolute Auto 0.6 K/mm3 (0.1-0.6); Monocytes Percent Auto 6.9 % (2.6-8.5); Neutrophils Absolute Auto 6.2 K/mm3 (1.3-6.7); Neutrophils Percent Auto 76.3 % (45.5-73.1); Platelet Count Result 232 k/mm3 (150-375); Red Cell Distribution Width 14.6 % (11.5-14.5); White Blood Count 8.1 K/mm3 (4.5-10.0)
[2022-09-21] MEDS: HYDROcodone/acetaminophen (*CRX) 5-325 MG TABLET 1 TAB PO (07:38)
[2022-09-21 07:44] VITALS: BP 164/92; PULSE 76; RESP 21; O2SAT 99
[2022-09-21 07:58] LABS: Alanine Aminotransferase 19 U/L (6-50); Albumin Level 4.2 g/dL (3.5-5.1); Alkaline Phosphatase 136 U/L (38-126); Anion Gap 8 mmol/L (8-16); Aspartate Amino Transferase 32 U/L (17-59); Bilirubin,Total 1.1 mg/dL (0.2-1.3); Blood Urea Nitrogen 28 mg/dL (9-20); Calcium 9.6 mg/dL (8.4-10.2); Carbon Dioxide 26 mmol/L (22-30); Chloride 100 mmol/L (98-107); Estimated CRCL calculation 26 ml/min; Estimated Glomerular Filt Rate 34; Glucose 106 mg/dL (65-110); Potassium 4.3 mmol/L (3.4-5.0); Sodium 134 mmol/L (137-145)
--- NOTE | 2022-09-21 08:06 | ED.FALL ---
HPI - Fall General Chief Complaint: Fall Stated Complaint: fall, weakness Time Seen by Provider: 09/21/22 07:06 Source: patient, family, RN notes reviewed and old records reviewed Mode of arrival: EMS Limitations: dementia History of Present Illness HPI Narrative: This is an 82 year old male with history of chronic pain, chronic compression fractures who presents for evaluation of a fall. His daughter is at bedside to assist with history. Patient's daughter states patient fell in his driveway. He states he fell onto his left side and he is reporting left leg pain. He states he is suppose to get full body scan today. It appears he may be scheduled for PET scan. He is unsure if he hit his head. He denies headache, or dizziness. He denies chest pain or shortness of breath. His daughter states patient was prescribed hydrocodone 30 tabs by his PCP and he is almost out. 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 She states patient has appointment with pain management this afternoon to treat his compression fractures. Related Data Home Medications Medication Instructions Recorded Confirmed finasteride 5 mg tablet 5 mg PO QAM 07/03/20 09/04/22 Allergies Allergy/AdvReac Type Severity Reaction Status Date / Time NSAIDS (Non-Steroidal AdvReac Severe AVOIDANCE Verified 09/04/22 14:27 Anti-Inflamma RELATED TO RENAL DISEASE levofloxacin [From Levaquin] AdvReac Mild Itching Verified 09/04/22 14:27 Review of Systems Constitutional: Constitutional: Denies weakness Cardiovascular: Cardiovascular: Denies syncope, Denies rapid heart rate, Denies irregular heart rhythm, Denies leg edema and Denies dyspnea Respiratory: Respiratory: Denies chest congestion, Denies hemoptysis, Denies excessive phlegm production and Denies dyspnea Gastrointestinal: Gastrointestinal: Denies abdominal pain, Denies hematochezia, Denies diarrhea and Denies vomiting Genitourinary: Genitourinary: Denies hematuria, Denies dysuria, Denies penile discharge and Denies testicular pain Musculoskeletal: Musculoskeletal: Reports back pain, Reports arthralgias, Denies joint swelling, Denies loss of height and Denies muscle weakness Neurologic: Denies syncope, Denies focal weakness and Denies weakness PMFSH Past Medical History Medical History AAA (abdominal aortic aneurysm) BPH (benign prostatic hyperplasia) CKD (chronic kidney disease), stage III Hy kid NOS w cr kid I-IV Hypertension Hypothyroidism Iliac aneurysm Kidney disease No pertinent family history Thyroid disorder Surgical History Surgical History History of appendectomy 1960 History of cholecystectomy 2008 History of right inguinal hernia repair with 6cm Parietex hernia mesh system 04/27/2019 07/16/2020 Repair recurrent right inguinal hernia with 8 cm Parietex hernia mesh system History of tonsillectomy 1940 Hx of arthroscopy of left knee Hx of arthroscopy of right knee 1991 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 Other Unknown family medical history Social History Social History Smoking packs per day: 0.75 Smoking cigarettes per day: 15.0 Years smoked: 36 Smoking pack-years: 27.00 Smoking status: Former smoker Tobacco type: cigarettes Second hand tobacco smoke exposure: No Smoking end date: 11/21/05 Additional smoking assessment comments: STATES 3/4-1PK/DAY/25YRS, QUIT 2004 Alcohol intake: never Substance use: never Substance use type: does not use Living arrangements: alone Occupation/Education: re
[2022-09-21 08:50] VITALS: BP 114/85; PULSE 74; RESP 20; O2SAT 100
[2022-09-21] MEDS: ONDANSETRON INJ 4 MG/2 ML VIAL IV PUSH (09:04)
[2022-09-21] MEDS: MORPHINE SULFATE (*CRX) 4 MG/ML INJ IV PUSH (09:05)
[2022-09-21 09:22] LABS: Appearance Urine Clear (Clear); Bacteria Urine None Seen /hpf; Bilirubin Urine Negative (Negative); Blood Urine Trace (Negative); Color Urine Yellow (Yellow); Glucose Urine UA Negative (Negative); Ketones Urine Negative (Negative); Leukocyte Esterase Ur Negative LEU/UL (Negative); Nitrate Urine Negative (Negative); Protein Urine 1+ mg/dL (Negative); RBC Urine 0-2 /hpf (0-2); Specific Grav Ur 1.014 (1.001-1.035); Squamous Epithelial Cell Urine None seen /hpf (Few); Urobilinogen Urine 0.2 mg/dL (<2.0); WBC Urine 0-5 /hpf; pH Urine 7.5 (5.0-9.0)
[2022-09-21 09:30] LABS: Add Urine Microscopic? YES
[2022-09-21 09:32] VITALS: BP 129/77; PULSE 64; RESP 20; O2SAT 91
[2022-09-21 10:07] VITALS: BP 135/80; PULSE 68; RESP 20; O2SAT 97
[2022-09-21 10:45] VITALS: BP 140/77; PULSE 73; RESP 20; O2SAT 99
== END 2022-09-21 10:47 | disposition short-term general hospital (02) ==
PROVIDERS: Emergency Medicine; Emergency Provider General Practice; PCP Family Medicine
DX: S72.012A Unspecified intracapsular fracture of left femur, initial encounter for closed fracture (principal); S22.060A Wedge compression fracture of T7-T8 vertebra, initial encounter for closed fracture; S22.070A Wedge compression fracture of T9-T10 vertebra, initial encounter for closed fracture; W18.30XA Fall on same level, unspecified, initial encounter; N40.0 Benign prostatic hyperplasia without lower urinary tract symptoms; I12.9 Hypertensive chronic kidney disease with stage 1 through stage 4 chronic kidney disease, or unspecified chronic kidney disease; N18.30 Chronic kidney disease, stage 3 unspecified; E03.9 Hypothyroidism, unspecified
CPT/HCPCS: 36415; 70450; 71046; 72125; 72128; 72131; 73502; 73562; 73590; 80053; 81001; 85025; 93005; 96374; 96375; 99285; A9270; J2270; J2405

== ENCOUNTER 2022-10-15 13:22 | Outpatient (NON) | payer MEDICARE, OTHER, SELFPAY ==
[2022-10-15 19:42] LABS: Appearance Urine Clear (Clear); Bilirubin Urine 1+ (Negative); Blood Urine Negative (Negative); Color Urine Yellow (Yellow); Glucose Urine UA Negative (Negative); Ketones Urine Negative (Negative); Leukocyte Esterase Ur Trace LEU/UL (Negative); Nitrate Urine Negative (Negative); Protein Urine 1+ mg/dL (Negative); Urobilinogen Urine 0.2 mg/dL (<2.0); pH Urine 5.5 (5.0-9.0)
[2022-10-15 20:05] LABS: Add Urine Microscopic? YES; RBC Urine 0-2 /hpf (0-2)
[2022-10-15 20:06] LABS: Bacteria Urine Rare /hpf; Calcium Oxalate Crystals Urine Present /hpf; Squamous Epithelial Cell Urine Few /hpf (Few); WBC Urine 0-3 /hpf (0-3)
[2022-10-15 20:07] LABS: Budding Yeast Urine Present /hpf; Mucus Urine Rare /lpf
== END 2022-10-15 13:23 | disposition home or self-care (01) ==
PROVIDERS: PCP Family Medicine; Visit Provider Family Medicine
DX: N39.0 Urinary tract infection, site not specified (principal)
CPT/HCPCS: 81001

== ENCOUNTER 2022-10-29 07:25 | Outpatient (CLI) | payer MEDICARE, OTHER, SELFPAY ==
--- NOTE | ~2022-10-29 | NM_ITS ---
EXAMINATION: NM bone scan whole body DATE: 10/29/2022 11:36 INDICATION: Disorder of bone, unspecified TECHNIQUE: 26.1 mCi Tc-99m HDP was administered intravenously. Delayed whole-body scintigrams were o btained. COMPARISON: Cervical, thoracic and lumbar spine CT and radiographs of the chest, left hip, knee and l ower leg dated 09/21/2022 FINDINGS: Prominent uptake surrounding a photopenic defect at the left hip and proximal femur with acute left f emoral neck fracture seen on the prior imaging consistent with interval arthroplasty placement. There is prominent uptake at an anterior right lower rib without evident correlate on the CT from 11 days prior to the time of trauma suggesting this represents a rib fracture. Additional uptake at a subacut e T7 and T9 burst fractures which were visualized on MR imaging from 09/07/2022. Likely degenerative rodolfo int centered uptake at the bilateral hands and wrists. No other suspicious foci of abnormal bone upta ke to suggest metastatic disease. IMPRESSION: 1. Foci of increased uptake likely related to either trauma or degenerative joint disease as detailed above. No other atypical or unexplained lesions to raise suspicion for metastatic disease. Reviewed, dictated and finalized at location A. IMPRESSION: 1. Foci of increased uptake likely related to either trauma or degenerative luz nt disease as detailed above. No other atypical or unexplained lesions to raise suspicion for metastatic disease.
== END 2022-10-29 07:26 | disposition home or self-care (01) ==
PROVIDERS: PCP Family Medicine; Visit Provider Family Medicine
DX: M89.9 Disorder of bone, unspecified (principal)
CPT/HCPCS: 78306; A9503

== ENCOUNTER 2022-12-03 18:45 | Emergency (ER) | payer MEDICARE, OTHER, SELFPAY ==
[2022-12-03] VITALS (7 sets, daily range): BP systolic 105–137; BP diastolic 56–98; PULSE 66–95; RESP 13–21; TEMP 36.7–36.9; O2SAT 94–98
--- NOTE | ~2022-12-03 | CT_ITS ---
EXAMINATION: CT brain wo con INDICATION: Altered mental status COMPARISON: 09/21/2022 TECHNIQUE: Standard unenhanced head CT. The dose-length product (DLP) was 605.33 mGy-cm. The mA was a djusted according to patient size. Iterative reconstruction technique was employed. FINDINGS: No acute intraparenchymal hemorrhage. No evidence of mass lesion. No evidence of acute infa rction. 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 There is mild periventricular and subcortical hypodensity probably related to small vessel ischemic disease. There is mild prominence o f the sulci and ventricles related to cerebral atrophy. Intracranial calcified cerebral atheroscleros is is noted. No extra-axial collections. No mass effect or midline shift. The orbits and soft tissues are unremarkable. The visualized sinuses and mastoid air cells are well aerated. IMPRESSION: 1. No acute intracranial abnormality. 2. Age related findings. Reviewed, dictated and finalized at location F.
--- NOTE | ~2022-12-03 | XR_ITS ---
EXAMINATION: XR chest 2V DATE: 12/03/2022 20:05 INDICATION: Cough TECHNIQUE: AP and lateral views of the chest are obtained. COMPARISON: 09/21/2022 FINDINGS: There are chronic interstitial opacities of the lungs. No acute airspace opacities are iden tified. No pleural effusion or pneumothorax. The cardiomediastinal silhouette is normal. There is sev ere thoracic spondylosis with lower thoracic compression fractures again noted. IMPRESSION: 1. Chronic interstitial lung disease without acute cardiopulmonary abnormality. Reviewed, dictated and finalized at location F.
--- NOTE | 2022-12-03 19:26 | PC.NURSE ---
Patient is able to correctly say his , where he is, and the year. However, patient is unable to recall why he is here.
--- NOTE | 2022-12-03 19:38 | ECG_ITS ---
Measurements Intervals [place] Rate: 80 P: 38 MD: 173 QRS: -12 QRSD: 90 T: 30 QT: 351 QTc: 405 Interpretive Statements SINUS RHYTHM ATRIAL PREMATURE COMPLEX POSSIBLE LEFT ATRIAL ENLARGEMENT BASELINE ARTIFACT- V1-V3 BORDERLINE ECG COMPARED TO ECG 09/21/2022 06:41:45 NO SIGNIFICANT CHANGES Electronically Signed On 12-03-2022 20:32:05 CDT by Joe Beaulieu D.O.
[2022-12-03 20:26] LABS: Basophils Percent Auto 0.4 % (0.2-1.2); Eosinophils Absolute Auto 0.1 K/mm3 (0-0.3); Eosinophils Percent Auto 1.5 % (0-4.4); Hematocrit 39.5 % (42.0-52.0); Hemoglobin 13.3 g/dL (14.0-18.0); Immature Granulocyte Absolute 0.04 K/mm3 (0.00-0.031); Immature Granulocyte Percent A 0.4 % (0-0.5); Lymphocytes Absolute Auto 1.02 K/mm3 (0.9-3.2); Lymphocytes Percent Auto 10.7 % (18.3-44.2); Mean Corpuscular HGB Conc 33.7 g/dl (32-36); Mean Corpuscular Hemoglobin 35.7 pg (26-34); Mean Corpuscular Volume 105.9 fl (80-100); Mean Platelet Volume 9.3 fl (7.4-10.4); Monocytes Absolute Auto 0.8 K/mm3 (0.1-0.6); Monocytes Percent Auto 8.7 % (2.6-8.5); Neutrophils Absolute Auto 7.5 K/mm3 (1.3-6.7); Neutrophils Percent Auto 78.3 % (45.5-73.1); Platelet Count Result 232 k/mm3 (150-375); Red Blood Count 3.73 M/mm3 (4.6-6.20); Red Cell Distribution Width 13.2 % (11.5-14.5); White Blood Count 9.5 K/mm3 (4.5-10.0)
--- NOTE | 2022-12-03 20:26 | PC.NURSE ---
Patient's daughter and POA states that patient is unable to tell when he has to urinate. Notified EDP Dr. Mcbride who verbally ordered a straight catheter.
--- NOTE | 2022-12-03 20:28 | ED.GENADULT ---
HPI - General Adult General Chief complaint: Altered Mental Status Stated complaint: suicidal evaluation Time Seen by Provider: 12/03/22 19:36 History of Present Illness HPI narrative: Patient 82-year-old gentleman who presents the emergency department with chief complaint of suicidal ideation. Patient recently was admitted to a rehab facility after having a hip fracture the patient has been at that facility since then and is been feeling more depressed lately the patient states today that he told his family that he wanted to borrow a gun so that he could kill himself the patient states that he is still having thoughts where he just wants to end his life and misses his . The patient also states that he wants to go home and not to be in the facility where he is currently staying at for rehab Related Data Home Medications Medication Instructions Recorded Confirmed finasteride 5 mg tablet 5 mg PO QAM 07/03/20 09/04/22 Allergies Allergy/AdvReac Type Severity Reaction Status Date / Time NSAIDS (Non-Steroidal AdvReac Severe AVOIDANCE Verified 09/04/22 14:27 Anti-Inflamma RELATED TO RENAL DISEASE levofloxacin [From Levaquin] AdvReac Mild Itching Verified 09/04/22 14:27 Review of Systems Review of Systems: A 10 system review of systems was completed on the patient and is negative except for what is stated in the HPI. Nursing and ancillary documentation was reviewed. [facility] Past Medical History Medical History AAA (abdominal aortic aneurysm) BPH (benign prostatic hyperplasia) CKD (chronic kidney disease), stage III Hy kid NOS w cr kid I-IV Hypertension Hypothyroidism Iliac aneurysm Kidney disease No pertinent family history Thyroid disorder Surgical History Surgical History History of appendectomy 1960 History of cholecystectomy 2008 History of right inguinal hernia repair with 6cm Parietex hernia mesh system 04/27/2019 07/16/2020 Repair recurrent right inguinal hernia with 8 cm Parietex hernia mesh system History of tonsillectomy 1940 Hx of arthroscopy of left knee Hx of arthroscopy of right knee 1992 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 Other Unknown family medical history Social History Social History Smoking packs per day: 0.5 Smoking cigarettes per day: 10.0 Years smoked: 36 Smoking pack-years: 18.00 Smoking status: Former smoker Tobacco type: cigarettes Second hand tobacco smoke exposure: No Smoking end date: 09/21/03 Additional smoking assessment comments: STATES 3/4-1PK/DAY/25YRS, QUIT 2004 Alcohol intake: unknown Substance use: unknown Substance use type: does not use Living arrangements: alone Occupation/Education: retired Gender identity (if verbalized by the patient): Male Spiritual care concerns: No Exam Narrative: GENERAL: Well-appearing, well-nourished, and in no acute distress. HEAD: Normocephalic, atraumatic. EYES: PERRLA and EOMI. ENT: Nares clear, no rhinorrhea or epistaxis. Mucous membranes moist. NECK: Supple. CHEST: Clear to auscultation. No respiratory distress. HEART: Regular rate and rhythm. No murmur heard. Normal peripheral pulses. ABDOMEN: Soft, nontender, nondistended, normal active bowel sounds. EXTREMITIES: Normal range of motion. No edema. SKIN: Warm, dry, no rash. NEURO: No focal deficits. Alert and oriented x3. PSYCH: Normal mood and affect. Course Vital Signs Vital signs: Vital Signs Temperature 36.9 C 12/03/22 19:11 Pulse Ra
[2022-12-03 20:36] LABS: Acetaminophen < 10 ug/mL (10-30); Alanine Aminotransferase 25 U/L (6-50); Albumin Level 3.8 g/dL (3.5-5.1); Alkaline Phosphatase 117 U/L (38-126); Anion Gap 2 mmol/L (8-16); Aspartate Amino Transferase 36 U/L (17-59); Bilirubin,Total 0.6 mg/dL (0.2-1.3); Blood Urea Nitrogen 56 mg/dL (9-20); Calcium 9.5 mg/dL (8.4-10.2); Carbon Dioxide 30 mmol/L (22-30); Chloride 101 mmol/L (98-107); Estimated Glomerular Filt Rate 58; Ethanol < 10 mg/dL (<10); Glucose 107 mg/dL (65-110); Potassium 3.9 mmol/L (3.4-5.0); Salicylate < 1.0 mg/dL (2-20); Sodium 133 mmol/L (137-145)
[2022-12-03 20:51] LABS: Anisocytosis 1+ (NORMAL); Burr Cells 1+ (NORMAL); Platelet Estimate Adequate (Adequate); Schistocytes Rare (NORMAL)
[2022-12-03 21:01] LABS: Influenza A QL RT-PCR Negative (Negative); Influenza B QL RT-PCR Negative (Negative); SARS-CoV-2 RNA PCR Negative (Negative)
[2022-12-03 21:08] LABS: Appearance Urine Clear (Clear); Bacteria Urine None Seen /hpf; Bilirubin Urine Negative (Negative); Blood Urine Negative (Negative); Color Urine Yellow (Yellow); Glucose Urine UA Negative (Negative); Ketones Urine Negative (Negative); Leukocyte Esterase Ur Negative LEU/UL (Negative); Nitrate Urine Negative (Negative); Non Pathogenic Casts 0-2; Protein Urine Trace mg/dL (Negative); RBC Urine 0-2 /hpf (0-2); Specific Grav Ur 1.017 (1.001-1.035); Squamous Epithelial Cell Urine None seen /hpf (Few); Urobilinogen Urine 0.2 mg/dL (<2.0); WBC Urine 0-5 /hpf; pH Urine 5.5 (5.0-9.0)
[2022-12-03 21:14] LABS: Add Urine Microscopic? YES
[2022-12-03 21:15] LABS: Amphetamine Screen Urine Negative (Negative); Barbiturate Screen Urine Negative (Negative); Benzodiazepines Screen Urine Negative (Negative); Cannabinoid Screen Urine Negative (Negative); Cocaine Screen Urine Negative (Negative); Methadone Screen Urine Negative (Negative); Opiate Screen Urine Negative (Negative); Phencyclidine Screen Urine Negative (Negative)
--- NOTE | 2022-12-03 21:19 | PC.NURSE ---
Patient is medically clear per EDP Dr. Mcbride
== END 2022-12-03 23:47 ==
PROVIDERS: Emergency Provider Emergency Medicine; PCP Family Medicine
DX: F32.A Depression, unspecified (principal); Z20.822 Contact with and (suspected) exposure to COVID-19; I12.9 Hypertensive chronic kidney disease with stage 1 through stage 4 chronic kidney disease, or unspecified chronic kidney disease; N18.30 Chronic kidney disease, stage 3 unspecified; N40.0 Benign prostatic hyperplasia without lower urinary tract symptoms; E03.9 Hypothyroidism, unspecified; Z90.49 Acquired absence of other specified parts of digestive tract; Z85.828 Personal history of other malignant neoplasm of skin; Z87.891 Personal history of nicotine dependence; Z79.899 Other long term (current) drug therapy; I49.1 Atrial premature depolarization; R94.31 Abnormal electrocardiogram [ECG] [EKG]
CPT/HCPCS: 36415; 70450; 71046; 80053; 80307; 81001; 84443; 85025; 87636; 93005; 99284

== ENCOUNTER 2023-02-06 08:22 | Emergency (ER) | payer MEDICARE, OTHER, SELFPAY ==
[2023-02-06] VITALS (9 sets, daily range): BP systolic 112–129; BP diastolic 67–90; PULSE 56–88; RESP 13–20; TEMP 36.2; O2SAT 88–99
--- NOTE | ~2023-02-06 | CT_ITS ---
EXAMINATION: CTA chest PE protocol DATE: 02/06/2023 14:30 PSYCHIATRIC REGISTERED NURSE INDICATION: Hypoxia. Elevated d-dimer. TECHNIQUE: Computed tomographic angiography (CTA) of the chest was performed with 100 mL Omnipaque-35 0 intravenous contrast. The dose-length product was 237.25 mGy-cm. Maximum intensity projection 3D-re constructions of the aorta and other arteries were constructed by the technologist on a separate work station. Automated exposure control and iterative reconstruction technique were employed. COMPARISON: None. 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 Findings likely secondary to prior trauma. Study limited due to motion. No l arge central pulmonary embolism. Moderate cardiomegaly. No significant pleural or pericardial effusio n. Severe emphysema with superimposed chronic interstitial fibrosis. There is focal consolidation in the right upper and lower lobes, suspicious for superimposed pneumonia. No pneumothorax identified. T here is 4.4 cm left renal cyst. IMPRESSION: 1. No large central pulmonary embolism. Study limited for evaluation of the peripheral pulmonary ya antoine. 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 3: Severe emphysema with chronic interstitial fibrosis. Multifocal consolidation of the right lung, suspicious for superimposed pneumonia. Reviewed, dictated and finalized at location A. HIATRIC REGISTERED NURSE IMPRESSION: 1. No large central pulmonary embolism. Study limited for evaluation of the per ipheral pulmonary arteries. 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 3: Severe emphysema with chronic interstitial fibrosis. Multifocal consolidati on of the right lung, suspicious for superimposed pneumonia.
--- NOTE | ~2023-02-06 | XR_ITS ---
EXAMINATION: XR chest 1V portable DATE: 02/06/2023 10:40 INDICATION: Shortness of breath and hypoxia TECHNIQUE: frontal view of the chest was obtained. COMPARISON: Chest radiograph dated 12/03/2022 and 09/21/[address] dated 09/21/2022 FINDINGS: Diffuse coarse increased interstitial pattern throughout both lungs relatively sparing the hyperlucen t left apex. This is significantly progressed since the prior studies and likely represents moderate pulmonary edema or less likely pneumonia superimposed over moderate emphysema. No pleural effusion or pneumothorax. Heart size is normal. Chronic midthoracic compression fractures. IMPRESSION: 1. Diffuse bilateral lung disease which could represent moderate pulmonary edema or less likely pneum onia superimposed over moderate emphysema. Reviewed, dictated and finalized at location A. SKINNER IMPRESSION: 1. Diffuse bilateral lung disease which could represent moderate pulmonary osbaldo a or less likely pneumonia superimposed over moderate emphysema.
--- NOTE | 2023-02-06 09:47 | ECG_ITS ---
Measurements Intervals [place] Rate: 61 P: -78 ME: 155 QRS: -5 QRSD: 89 T: -3 QT: 413 QTc: 418 Interpretive Statements ECTOPIC ATRIAL RHYTHM LOW QRS VOLTAGE IN PRECORDIAL LEADS ABNORMAL ECG COMPARED TO ECG 12/03/2022 20:09:25 ECTOPIC ATRIAL RHYTHM NOW PRESENT Electronically Signed On 02-06-2023 14:10:46 BRAILLE OPERATOR by Guru Dias M.D.
--- NOTE | 2023-02-06 09:48 | ED.SOB ---
HPI - SOB/Dyspnea General Chief Complaint: Shortness of Breath/Dyspnea Stated Complaint: SOB Time Seen by Provider: 02/06/23 09:01 History of Present Illness HPI Narrative: 82-year-old male with a history of hypothyroidism, hypertension, CKD stage 3, AAA, interstitial lung disease reports via EMS from [place] for shortness of breath low O2 stats this morning. The patient's daughter/POA, Tiffany Farr is present at bedside and provides the following history. She states that she received a phone call this morning from the detention stating that the patient looked unwell and had a purple discoloration to his skin, therefore he was sent to the emergency department. Upon my evaluation, the patient states he feels fine. He denies chest pain, shortness of breath, abdominal pain, nausea, vomiting, diarrhea, lightheadedness or dizziness, dysuria or hematuria, cough or congestion. Per triage notes, the patient was placed on 15 L O2 non-rebreather by EMS then was placed on 3 L nasal cannula. Upon my evaluation, he is on 2L nasal cannula on my evaluation satting 95%. He normally does not wear oxygen. Per chart review, patient's oxygen saturation usually upper 90 percentile. Patient's daughter states patient's PCP, Dr. Meyers, his managing his interstitial lung disease. He is not currently taking any medications for this. She is unsure what his baseline oxygen saturation is. The patient normally ambulates with a walker. Related Data Home Medications Medication Instructions Recorded Confirmed finasteride 5 mg tablet 5 mg PO QAM 07/03/20 12/07/22 Allergies Allergy/AdvReac Type Severity Reaction Status Date / Time NSAIDS (Non-Steroidal AdvReac Severe AVOIDANCE Verified 02/06/23 10:36 Anti-Inflamma RELATED TO RENAL DISEASE levofloxacin [From Levaquin] AdvReac Mild Itching Verified 02/06/23 10:36 Review of Systems Review of Systems: CONSTITUTIONAL: Denies fever, chills, or sweats. EYES: Denies visual changes, redness, or discharge. ENT: Denies rhinorrhea, congestion, sore throat, or otalgia. CARDIOVASCULAR: Denies chest pain, palpitations, or edema. RESPIRATORY: See HPI GASTROINTESTINAL: Denies abdominal pain, nausea, vomiting, or diarrhea. GENITOURINARY: Denies dysuria or hematuria. SKIN: Denies rash or itching. MUSCULOSKELETAL: Denies back pain, joint pain, or myalgia. NEUROLOGIC: Denies headache, numbness, or weakness. PSYCHIATRIC: Denies anxiety or depression. [facility] Past Medical History Medical History AAA (abdominal aortic aneurysm) BPH (benign prostatic hyperplasia) CKD (chronic kidney disease), stage III Hy kid NOS w cr kid I-IV Hypertension Hypothyroidism Iliac aneurysm Kidney disease No pertinent family history Thyroid disorder Surgical History Surgical History History of appendectomy 1960 History of cholecystectomy 2008 History of right inguinal hernia repair with 6cm Parietex hernia mesh system 04/27/2019 07/16/2020 Repair recurrent right inguinal hernia with 8 cm Parietex hernia mesh system History of tonsillectomy 1940 Hx of arthroscopy of left knee Hx of arthroscopy of right knee 1991 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 Other Unknown family medical history Social History Social History Smoking packs per day: 0.5 Smoking cigarettes per day: 10.0 Years smoked: 36 Smoking pack-years: 18.00 Smoking status: Former smoker Tobacco type: cigarettes Second hand tobacco smoke exposure: No Smoking end date: 09/21/03 Additional smok
[2023-02-06] MEDS: IPRATROPIUM BR 0.02% INH SOLN 0.5 MG/2.5 ML VIAL INHALATION (10:00)
[2023-02-06] MEDS: ALBUTEROL SULFATE NEB 2.5 MG/3 ML INH INHALATION (10:00)
[2023-02-06 11:08] LABS: Basophils Percent Auto 0.3 % (0.2-1.2); Eosinophils Absolute Auto 0.1 K/mm3 (0-0.3); Eosinophils Percent Auto 0.7 % (0-4.4); Hematocrit 49.9 % (42.0-52.0); Hemoglobin 16.1 g/dL (14.0-18.0); Immature Granulocyte Absolute 0.05 K/mm3 (0.00-0.031); Immature Granulocyte Percent A 0.5 % (0-0.5); Lymphocytes Absolute Auto 0.81 K/mm3 (0.9-3.2); Lymphocytes Percent Auto 7.6 % (18.3-44.2); Mean Corpuscular HGB Conc 32.3 g/dl (32-36); Mean Corpuscular Volume 105.5 fl (80-100); Monocytes Absolute Auto 0.5 K/mm3 (0.1-0.6); Monocytes Percent Auto 4.9 % (2.6-8.5); Neutrophils Absolute Auto 9.2 K/mm3 (1.3-6.7); Platelet Count Result 209 k/mm3 (150-375); Red Blood Count 4.73 M/mm3 (4.6-6.20); Red Cell Distribution Width 14.6 % (11.5-14.5); White Blood Count 10.7 K/mm3 (4.5-10.0)
[2023-02-06 11:13] LABS: Appearance Urine Clear (Clear); Bacteria Urine None Seen /hpf; Bilirubin Urine Negative (Negative); Blood Urine Negative (Negative); Color Urine Yellow (Yellow); Glucose Urine UA Negative (Negative); Ketones Urine Negative (Negative); Leukocyte Esterase Ur Negative LEU/UL (Negative); Nitrate Urine Negative (Negative); Protein Urine Trace mg/dL (Negative); RBC Urine 0-2 /hpf (0-2); Specific Grav Ur 1.018 (1.001-1.035); Squamous Epithelial Cell Urine None seen /hpf (Few); Urobilinogen Urine 0.2 mg/dL (<2.0); WBC Urine 0-5 /hpf; pH Urine 5.5 (5.0-9.0)
[2023-02-06 11:15] LABS: Add Urine Microscopic? YES
[2023-02-06 11:17] LABS: Prothrombin Time 13.8 Seconds (11.1-14.7)
[2023-02-06 11:18] LABS: Partial Thromboplastin Time 25.9 SECONDS (22.3-36.8)
[2023-02-06 11:23] LABS: Alanine Aminotransferase 18 U/L (6-50); Albumin Level 3.9 g/dL (3.5-5.1); Alkaline Phosphatase 103 U/L (38-126); Anion Gap 11 mmol/L (8-16); Aspartate Amino Transferase 25 U/L (17-59); Blood Urea Nitrogen 56 mg/dL (9-20); Calcium 9.5 mg/dL (8.4-10.2); Carbon Dioxide 24 mmol/L (22-30); Chloride 107 mmol/L (98-107); Estimated CRCL calculation 34 ml/min; Estimated Glomerular Filt Rate 53; Glucose 105 mg/dL (65-110); Potassium 3.4 mmol/L (3.4-5.0); Sodium 142 mmol/L (137-145)
[2023-02-06 11:34] LABS: Bilirubin,Total 0.9 mg/dL (0.2-1.3); NT Pro B Type Natriuretic Pept 902 pg/mL (19.9-100); Troponin I 0.045 ng/mL (0.000-0.034)
[2023-02-06 11:36] LABS: Burr Cells 1+ (NORMAL); D Dimer 8.01 ug/mL (<0.48); Macrocytosis 1+ (NORMAL); Platelet Estimate Adequate (Adequate); Schistocytes None Seen (NORMAL)
[2023-02-06 12:03] LABS: Influenza A QL RT-PCR Negative (Negative); Influenza B QL RT-PCR Negative (Negative); RSV RNA, RT-PCR Negative (Negative); SARS-CoV-2 RNA PCR Negative (Negative)
[2023-02-06 14:55] LABS: Troponin I 0.041 ng/mL (0.000-0.034)
[2023-02-06 18:25] LABS: Troponin I 0.038 ng/mL (0.000-0.034)
--- NOTE | 2023-02-06 18:36 | PC.NURSE ---
Bhavna W/ Jake at [facility] bed [phone]
--- NOTE | 2023-02-06 18:36 | PC.NURSE ---
Gave report to Maya ESPARZA at [facility] ICU at [phone].
--- NOTE | 2023-02-06 18:37 | PC.NURSE ---
Spoke W/ RN at [facility] to update on pt and pt transfer at 181
--- NOTE | 2023-02-06 19:12 | PC.NURSE ---
Pt med Azithromycin not given. Pt had other medications going. Pt being transported to [facility]. RN made aware pt did not receive dose.
--- NOTE | 2023-02-06 21:11 | PC.NURSE ---
2105 called [facility] for status check on pt transfer. [facility] stated they forgot to update ETA, truck is currently en route to [place], [place], stated it would be multiple hours before picking pt up. [address] [facility] accepted trip, ETA [id number]
== END 2023-02-06 21:59 | disposition short-term general hospital (02) ==
PROVIDERS: Emergency Provider Physician Assistant; PCP Family Medicine
DX: J18.9 Pneumonia, unspecified organism (principal); J43.9 Emphysema, unspecified; J84.9 Interstitial pulmonary disease, unspecified; I71.9 Aortic aneurysm of unspecified site, without rupture; I74.10 Embolism and thrombosis of unspecified parts of aorta; R77.8 Other specified abnormalities of plasma proteins; Z20.822 Contact with and (suspected) exposure to COVID-19; I12.9 Hypertensive chronic kidney disease with stage 1 through stage 4 chronic kidney disease, or unspecified chronic kidney disease; N18.30 Chronic kidney disease, stage 3 unspecified; E03.9 Hypothyroidism, unspecified; N40.0 Benign prostatic hyperplasia without lower urinary tract symptoms; Z85.828 Personal history of other malignant neoplasm of skin; Z87.891 Personal history of nicotine dependence; Z90.49 Acquired absence of other specified parts of digestive tract; R94.31 Abnormal electrocardiogram [ECG] [EKG]
CPT/HCPCS: 36415; 71045; 71275; 80053; 81001; 83880; 84484; 85025; 85380; 85610; 85730; 87637; 93005; 94640; 96365; 99285; J0696; Q9967